=== PATIENT | female | born 1985 | race Caucasian/White ===

== ENCOUNTER → 2017-10-09 | Outpatient (CLI) | payer OTHER ==
[~2017-10-09] MED LIST: IBUP-232 PO; OXYC1TAB63 PO; SENN1TAB PO; ZOFR4TAB PO
== END ==
LOC: CPRE 14:31
PROVIDERS: ATTEND Obstetrics & Gynecology
DX: Z00.00 Encounter for general adult medical examination without abnormal findings (principal)

== ENCOUNTER 2017-10-16 06:09 | Observation (INO) | payer OTHER ==
[~2017-10-16] VITALS: Ht 175.3 cm; Wt 57.1 kg
[2017-10-16] MEDS ORDERED: fentaNYL CITRATE 250 MCG/5 ML AMP ONE (06:38)
[2017-10-16] MEDS ORDERED: ACETAMINOPHEN 1000 MG/100 ML 0 ML IV ONE (06:44)
[2017-10-16] MEDS ORDERED: POVIDONE IODINE 5% (ANTISEPSIS KIT) 4 APPLICATIONS EACH NARE PRN (06:45)
[2017-10-16] MEDS ORDERED: LACTATED RINGER'S 1000 ML IV PRN (06:45)
[2017-10-16] MEDS ORDERED: METOPROLOL TARTRATE 25 MG TAB PO PRN (06:45)
[2017-10-16] MEDS ORDERED: CHLORHEXIDINE GLUCONATE 2 % 1 PACK (2 CLOTHS) TOPICAL PRN (06:45)
[2017-10-16] MEDS ORDERED: SODIUM CHLORID 0.9% 500 ML IV PRN (06:45)
[2017-10-16] MEDS ORDERED: VASOPRESSIN 20 UNITS/ML VIAL ONE (06:53)
[2017-10-16] MEDS ORDERED: ROPIVACAINE 0.5% PF INJ 30 ML VIAL ONE (06:54)
[2017-10-16] MEDS ORDERED: DEXAMETHASONE SOD PHOS 4 MG/ML VIAL ONE (06:55)
[2017-10-16] MEDS ORDERED: CEFAZOLIN INJ 2,000 MG in SODIUM CHLORIDE 0.9% INJ 100 ML IV ONE (07:00)
[2017-10-16] MEDS ORDERED: SODIUM CHLORIDE 0.9% 20 ML VIAL ONE (07:08)
[2017-10-16] MEDS ORDERED: BUPIVACAINE/EPINEPHRINE 0.5% PF 30 ML VIAL ONE (07:17)
[2017-10-16] MEDS ORDERED: SODIUM CHLORIDE 0.9% INJ 0 ML ONE (07:52)
[2017-10-16] MEDS ORDERED: MORPHINE SULFATE 4 MG/ML INJ ONE ×2 (08:53→08:54)
[2017-10-16] MEDS ORDERED: LACTATED RINGER'S 1000 ML INJ 1,000 ML IV SCH (10:43)
[2017-10-16] MEDS ORDERED: DO NOT ADM ANY ANTICOAGULANT DRUGS PRN (10:43)
[2017-10-16] MEDS ORDERED: MORPHINE SULFATE 30 MG/30 ML PCA IV SCH (10:45)
[2017-10-16] MEDS ORDERED: diphenhydrAMINE HCL 25 MG CAP PO PRN (10:45)
[2017-10-16] MEDS ORDERED: NALOXONE HCL 0.4 MG/ML AMP IV PUSH PRN (10:45)
[2017-10-16] MEDS ORDERED: ONDANSETRON HCL 4 MG/2 ML VIAL IVP PRN (10:45)
[2017-10-16] MEDS ORDERED: oxyCODONE/ACETAMINOPHEN 5 MG/325 MG TAB PO PRN (10:45)
[2017-10-16] MEDS: ACETAMINOPHEN 1000 MG/100 ML 100 ML IV SCH ×4 (10:45→23:52)
[2017-10-16] MEDS: SODIUM CHLORIDE 0.9% FLUSH 10 ML FLUSH IV FLUSH SCH ×2 (10:45→20:50)
[2017-10-16] MEDS ORDERED: ZOLPIDEM TARTRATE 5 MG TAB PO PRN (10:45)
[2017-10-16] MEDS ORDERED: SODIUM CHLORIDE 0.9% FLUSH 10 ML FLUSH IV FLUSH PRN (10:45)
[2017-10-16] MEDS ORDERED: LORazepam 0.5 MG TAB PO PRN (10:45)
[2017-10-16] MEDS ORDERED: PROMETHAZINE INJ 25 MG/ML VIAL IM PRN (10:45)
[2017-10-16] MEDS ORDERED: diphenhydrAMINE HCL 50 MG/ML VIAL IV PUSH PRN (10:45)
--- NOTE | 2017-10-16 10:51 | HHI.PR ---
Immediate Post Op Note Procedure Date: Oct 16, 2017 Pre Op Diagnosis: (1) Menorrhagia with irregular cycle (2) Chronic pelvic pain in female (3) Endometriosis determined by laparoscopy Post Op Diagnosis: (1) S/P laparoscopic assisted vaginal hysterectomy (LAVH) (2) Menorrhagia with irregular cycle (3) Chronic pelvic pain in female (4) Endometriosis determined by laparoscopy Surgeon: Suni Loyd Solar Process Engineer(s): Rafia Corbett MD Procedure: exam under anesthesia, laparoscopic assisted vaginal hysterectomy, left salpingo -oophorectomy, right salpingectomy Findings: boggy retroverted uterus, suspect adenomyosis and intramural leiomyoma, adhesions of left ovary to left pelvic sidewall and descending colon, freed intraoperatively Complications: none Specimen(s) removed: uterus, cervix, left ovary, left fallopian tube, right ovary Estimated blood loss: 500 mL Anesthesia: General Drains: None Fluids: 1300mL IVF Urinary Output (mLs): 300 Patient to: PACU Patient Condition: Good Suni Loyd MD Oct 16, 2017 10:50
[2017-10-16] MEDS ORDERED: ACETAMINOPHEN 1000 MG/100 ML 100 ML IV ONE (10:53)
[2017-10-16] MEDS ORDERED: PILL SPLITTER OTHER PRN (11:00)
[2017-10-16] MEDS: KETOROLAC TROMETHAMINE 30 MG/ML (IVP) VIAL IVP SCH ×3 (11:15→22:29)
--- NOTE | 2017-10-16 11:15 | MP ---
cc: Suni Loyd MD DATE OF OPERATION: 10/16/2017 PREOPERATIVE DIAGNOSES: 1. Premenopausal menorrhagia. 2. Chronic pelvic pain. 3. History of endometriosis on prior laparoscopy. POSTOPERATIVE DIAGNOSIS: 1. Premenopausal menorrhagia. 2. Chronic pelvic pain. 3. History of endometriosis on prior laparoscopy. 4. Suspected adenomyosis and uterine fibroid. 5. Postoperative day number zero. INDICATIONS: Lin Melgoza is a 31-year-old who has a long history of painful heavy menstrual cycles not controlled with control methods or continuous Provera suppression. She was seen and evaluated in the office with a somewhat bulky, retroverted uterus and had a history of laparoscopy in 2005 that she reports showed endometriosis. The patient strongly desired hysterectomy and after she had completed childbearing, she desired to move forward with this process. After exhausting medical therapy decision was made to proceed with surgical management. She did have more left- sided pelvic pain then right and desired removal of left ovary at time of hysterectomy. PROCEDURE PERFORMED: 1. Exam under anesthesia. 2. Laparoscopic-assisted vaginal hysterectomy. 3. Left salpingo-oophorectomy. 4. Right salpingectomy. SURGEON: Suni Loyd MD TORCH SOLDERER SURGEON: Rafia Corbett MD. TYPE OF ANESTHESIA: General, also a TAP block was performed intraoperatively per patient request after being counseled by anesthesia team. COMPLICATIONS: None. COUNTS: Sponge, lap, instrument and needle were correct x 2 at the conclusion of the procedure. ESTIMATED BLOOD LOSS: 500 mL. IV FLUID REPLACEMENT: 1300 mL. URINE OUTPUT: 300 mL of clear urine draining in the Busch bag at the end of the procedure. PROPHYLAXIS: Ancef 2 grams IV was given preoperatively and SCDs were on and functioning throughout the entire case. SPECIMENS: Includes uterus, cervix, left ovary, left fallopian tube, right fallopian tube. INTRAOPERATIVE FINDINGS: Normal external female genitalia. Cervix is smooth, multiparous 4 cm mobile. The uterus was approximately 7 weeks size and retroverted on bimanual exam. On intra-abdominal survey laparoscopically normal liver edge, normal appearing gallbladder. The appendix was not visualized. The uterus was somewhat bulky with a suspected intramural fibroid distorting the shape of the cavity on the left. Normal bilateral fallopian tubes. The left ovary was somewhat adherent to the left pelvic sidewall and the descending colon. These adhesions were freed intraoperatively. There was some scarring posteriorly along the right and left uterosacral ligaments concerning for possible endometriosis of the peritoneum. PROCEDURE IN DETAIL: After reviewing the informed consent, the patient was taken to the operating suite where a timeout was performed to identify the patient, the planned procedure and any known allergies to drugs or drug products. The patient was then placed in dorsal supine position and general anesthesia was administered without difficulty and found to be adequate. The anesthesiologist then performed a TAP block of the abdomen. The abdomen and perineum were prepped and draped in a normal sterile fashion after the patient was placed in the low lithotomy position in [facility] ([facility] Exam under anesthesia was performed with results as listed above. Attention was turned vaginally where a sterile speculum was placed vaginally. The cervix was grasped on the anterior lip and the uterus sounded to 7 cm. Progression of cervical dilators were then used to accommodate the HUMI uterine manipulator, which was inserted without complication. Tenaculum and speculum were then removed vaginally and a Busch catheter was placed using sterile technique. Attention was then turned to the abdomen where a 5 mm incision was made at the base of the umbilicus. Using direct visual entry technique the laparoscope was then introduced without complication. Gas was turned on. The abdomen was insufflated. Slight Trendelenburg positioning was performed and an intra-abdominal survey was performed with results as listed above. Additional 5 mm incisions were made in the left and right lower quadrants and trocars were introduced at these points without complications. The left ovary was found to be somewhat adherent to the descending colon. The filmy adhesions along the left pelvic sidewall were lysed with the Harmonic scalpel, successfully freeing the descending colon from the left pelvic sidewall and from the left ovary. The left round ligament was then elevated, grasped with Harmonic, was cauterized and divided. The broad ligament was then opened to develop a bladder flap on the left side down towards the lower uterine segment. This exact process was repeated on the right with excellent skeletonization of the uterine vessels. The left fallopian tube and ovary were then grasped on their vascular pedicle. The left infundibulopelvic ligament was clamped, cauterized, and divided with Harmonic scalpel with excellent hemostasis. Additional ligation of uterine vessels was performed using the Harmonic scalpel down to the level of the uterine artery on the left. The right fallopian tube was then elevated and using Harmonic scalpel, it was successfully excised. It was brought out through the 5 mm trocar. The uterine vessels were then successfully clamped, sealed, and ligated with the Harmonic scalpel from the level of the right uteroovarian ligament down to the level of the uterine artery. Excellent hemostasis was noted. Instruments were removed from the trocars. Gas was turned off, the abdomen was desufflated. The patient was brought back into level position and attention was turned vaginally where the uterine manipulator was removed. A weighted speculum was placed posteriorly and a Guillermo retractor was used to retract anteriorly. The cervix was again grasped with a single-tooth tenaculum and approximately 10 mL of 0.5% bupivacaine with epinephrine were used to dissect the vesicouterine peritoneum. Bovie cautery was used to enter the space and using pickups and Metzenbaum scissors, the anterior cul-de-sac was successfully entered without complication. The Guillermo retractor was replaced in this space. Attention was turned posteriorly where pickups and Ochoa's were used to sharply incise into the posterior cul-de-sac. An Ovard weighted speculum was then placed posteriorly. Using a succession of clamp, cut, and suture ligate technique, the vascular pedicles were secured allowing detachment of the specimen from the vaginal cuff. The specimen was then delivered vaginally. Irrigation with suction was performed. The posterior vaginal cuff was closed in a running fashion with #1 Vicryl with excellent hemostasis. The cuff was then closed from anterior to posterior in a right to left running fashion with an additional #1 Vicryl suture. Uterosacral ligaments were brought together in the midline for additional elevation of the cuff with excellent result. The vagina was then irrigated and suctioned. Excellent hemostasis was noted. Attention was turned back abdominally where gas was turned back on. Abdomen was insufflated. Laparoscopic camera was re-introduced. Irrigation with suction was performed. The right ovary and its pedicle and all additional vascular pedicles were well secured with excellent hemostasis. Surgicel powder was then placed over the vaginal cuff. All instruments were removed at this point. The gas was turned off. The abdomen was desufflated. All trocars were removed from 5 mm ports. The abdomen was cleaned and dried. 4-0 Monocryl was used to close the 3 laparoscopic incision sites in subcuticular fashion and steri- strips were placed. The patient was brought back into dorsal supine position. She was awoken from anesthesia without complication. The procedure concluded at this point. DISPOSITION: The patient's estimated length of stay is overnight. She tolerated the procedure well without complication. MD JUAN C Resendiz/TRISTON , 10:43 AM , 11:13 AM [email or web address]
[2017-10-16] MEDS ORDERED: EPINEPHrine HCL (1:1000) 1 MG/ML VIAL IV ONE (12:00)
[2017-10-16] MEDS ORDERED: ROCURONIUM INJ 50 MG/5 ML SYRINGE IV PUSH ONE (12:00)
[2017-10-16] MEDS ORDERED: ONDANSETRON HCL 4 MG/2 ML VIAL IV ONE (12:00)
[2017-10-16] MEDS ORDERED: PROPOFOL 200 MG/20 ML AMP IV ONE (12:00)
[2017-10-16] MEDS ORDERED: ceFAZolin INJ 1,000 MG VIAL IV ONE (12:00)
[2017-10-16] MEDS ORDERED: LACTATED RINGER'S 1000 ML INJ 1,000 ML IV ONE (12:00)
[2017-10-16] MEDS ORDERED: LIDOCAINE HCL 1% PF 5 ML SYRINGE OTHER ONE (12:00)
[2017-10-16 12:15] VITALS: BP 121/83; PULSE 81; RESP 12; TEMP 97.6; O2SAT 96
[2017-10-16 14:00] VITALS: RESP 14; O2SAT 98
[2017-10-16] MEDS ORDERED: PCA - TOTAL MG MORPHINE DELIVERED PER SHIFT SCH (14:00)
[2017-10-16 17:00] VITALS: BP 109/64; PULSE 74; RESP 16; TEMP 97.9; O2SAT 100
--- NOTE | 2017-10-16 17:28 | HHI.OB ---
Subjective Post Operative Day: 0 Remarks POD#0 s/p LAVH, LSO, R-salpingectomy for menorrhagia, chronic pelvic pain, h/o endometriosis on prior laparoscopies; doing great, wants to ambulate, not requiring CIRCUS ARTIST meds, requests crawford out, wants to eat, transition to po meds Objective Vitals/I&O Vital Signs Date Time Temp Pulse Resp B/P (MAP) Pulse Ox O2 Delivery O2 Flow Rate FiO2 10/16/17 17:00 97.9 74 16 109/64 (79) 100 10/16/17 14:00 14 98 10/16/17 14:00 16 10/16/17 12:15 97.6 81 12 121/83 (96) 96 10/16/17 11:45 98.3 78 14 125/84 (98) 98 Room Air 10/16/17 11:30 75 16 125/72 (89) 97 Room Air 10/16/17 11:15 76 14 131/77 (95) 97 Room Air 10/16/17 11:10 15 10/16/17 11:00 82 18 135/80 (98) 99 Room Air 10/16/17 10:41 98.0 108 20 125/77 (93) 100 Room Air 10/16/17 06:48 98.8 58 20 110/63 (79) 98 Intake & Output 10/16/17 10/16/17 07:00 19:00 Intake Total 1453 ml Output Total 1000 ml Balance 453 ml Intake IV Total 153 ml Other 1300 ml Output Urine Total 500 ml Estimated Blood Loss 500 ml Objective Remarks GENERAL: Well-nourished, well-developed patient. CARDIOVASCULAR: Regular rate and rhythm without murmurs, gallops, or rubs. RESPIRATORY: Breath sounds equal bilaterally. No accessory muscle use. ABDOMEN/GI: Abdomen soft, non-tender, bowel sounds present. Incision: Clean, dry and intact x 3 LSC trochar incisions GENITOURINARY: pad dry. EXTREMITIES: No cyanosis or edema, non-tender, without signs of DVT. Medications and IVs Current Medications Medications (Trade) Dose Ordered Sig/Rashida Route Start Time Stop Time Status Last Admin (NS Flush) 2 ml UNSCH PRN IV FLUSH 10/16/17 10:45 (NS Flush) 2 ml BID IV FLUSH 10/16/17 10:45 (Motrin) 600 mg Q6H PRN PO 10/17/17 08:00 (Toradol Inj) 15 mg Q6H IVP 10/16/17 10:45 10/17/17 04:46 10/16/17 17:08 (Percocet 5-325 Mg) 1 tab Q4H PRN PO 10/16/17 10:45 (Percocet 5-325 Mg) 2 tab Q4H PRN PO 10/16/17 10:45 (Benadryl) 25 mg Q6H PRN PO 10/16/17 10:45 (Zofran Inj) 4 mg Q6H PRN IVP 10/16/17 10:45 (Phenergan Inj) 25 mg Q6H PRN IM 10/16/17 10:45 (Colace) 100 mg Q12H PO 10/16/17 21:00 (Ambien) 5 mg HS PRN PO 10/16/17 10:45 (Ativan) 0.25 mg Q8H PRN PO 10/16/17 10:45 (Narcan Inj) 0.4 mg UNSCH PRN IV PUSH 10/16/17 10:45 (Benadryl Inj) 25 mg Q6H PRN IV PUSH 10/16/17 10:45 Acetaminophen 100 ml @ 400 mls/hr Q6H IV 10/16/17 10:45 10/17/17 04:59 10/16/17 17:08 (Pill Splitter) 1 ea UNSCH PRN OTHER 10/16/17 11:00 Miscellaneous Information ALL NURSING DEPARTME... UNSCH PRN .XX 10/16/17 10:43 10/17/17 10:42 Assessment/Plan Problem List: (1) S/P laparoscopic assisted vaginal hysterectomy (LAVH) ICD Codes: Z90.710 - Acquired absence of both cervix and uterus Status: Acute (2) Menorrhagia with irregular cycle ICD Codes: N92.1 - Excessive and frequent menstruation with irregular cycle Status: Chronic (3) Chronic pelvic pain in female ICD Codes: R10.2 - Pelvic and perineal pain; G89.29 - Other chronic pain Status: Chronic (4) Endometriosis determined by laparoscopy ICD Codes: N80.9 - Endometriosis, unspecified Status: Chronic Assessment and Plan POD#0 doing great, d/c crawford, advance diet, ambulate, d/c IVF, transition to po meds if does well overnight will plan d/c in AM reviewed procedure & findings, AQA Discharge Planning anticipate tmrw 10/17/17 Suni Loyd MD Oct 16, 2017 17:28
[2017-10-16] MEDS ORDERED: SENN1TAB PO (17:30)
[2017-10-16] MEDS ORDERED: IBUP-232 PO (17:30)
[2017-10-16] MEDS ORDERED: OXYC1TAB63 PO (17:30)
[2017-10-16 19:40] VITALS: BP 102/62; PULSE 59; RESP 20; TEMP 98.2; O2SAT 100
[2017-10-16] MEDS ORDERED: DOCUSATE SODIUM 100 MG CAP PO SCH (21:00)
[2017-10-16] MEDS: oxyCODONE/ACETAMINOPHEN 5 MG/325 MG TAB PO PRN (22:30)
[2017-10-17] VITALS: BP 112/62; PULSE 68; RESP 16; TEMP 98.5; O2SAT 99
--- NOTE | 2017-10-17 02:54 | HHI.PR ---
Subjective Remarks Doing well, pain is well controlled, eating well. Objective Vital Signs Vital Signs Date Time Temp Pulse Resp B/P (MAP) Pulse Ox O2 Delivery O2 Flow Rate FiO2 10/17/17 00:00 98.5 68 16 112/62 (79) 99 10/16/17 19:40 98.2 59 20 102/62 (75) 100 10/16/17 17:00 97.9 74 16 109/64 (79) 100 10/16/17 14:00 14 98 10/16/17 14:00 16 10/16/17 12:15 97.6 81 12 121/83 (96) 96 10/16/17 11:45 98.3 78 14 125/84 (98) 98 Room Air 10/16/17 11:30 75 16 125/72 (89) 97 Room Air 10/16/17 11:15 76 14 131/77 (95) 97 Room Air 10/16/17 11:10 15 10/16/17 11:00 82 18 135/80 (98) 99 Room Air 10/16/17 10:41 98.0 108 20 125/77 (93) 100 Room Air 10/16/17 06:48 98.8 58 20 110/63 (79) 98 I/O 10/16/17 10/16/17 10/16/17 10/17/17 10/17/17 10/17/17 07:00 15:00 23:00 07:00 15:00 23:00 Intake Total 1523 ml 240 ml Output Total 1000 ml 2300 ml Balance 523 ml -2060 ml Intake Oral 240 ml IV Total 223 ml Other 1300 ml Output Urine Total 500 ml 2300 ml Estimated Blood Loss 500 ml Objective Remarks Chest is clear, regular rate and rhythm. Abdomen is soft and non-distended. Incisions are clean and dry. steri- strips in place x 3 Ext no CCE. A/P Assessment and Plan Post Op Day 1 Doing well Home today and return to office in one week. reviewed postop precautions & proper care, Suni Styles MD Oct 17, 2017 02:54
--- NOTE | 2017-10-17 02:58 | HHI.DS ---
Discharge Summary Admission Date Oct 16, 2017 at 10:47 Discharge Date: Oct 17, 2017 Admitting Diagnosis premenopausal menorrhagia, chronic pelvic pain, history of endometriosis on laparoscopy (1) S/P laparoscopic assisted vaginal hysterectomy (LAVH) ICD Codes: Z90.710 - Acquired absence of both cervix and uterus Status: Acute (2) Menorrhagia with irregular cycle ICD Codes: N92.1 - Excessive and frequent menstruation with irregular cycle Status: Chronic (3) Chronic pelvic pain in female ICD Codes: R10.2 - Pelvic and perineal pain; G89.29 - Other chronic pain Status: Chronic (4) Endometriosis determined by laparoscopy ICD Codes: N80.9 - Endometriosis, unspecified Status: Chronic Procedures exam under anesthesia, laparoscopic assisted vaginal hysterectomy, left salpingo -oophorectomy, right salpingectomy Brief History 31 yo with known history of endometriosis on prior laparoscopies, long history of heavy painful cycles, failed medical management, desired definitive treatment with hysterectomy. PE at Discharge NAD A&O x 3 CTA b/l no wheeze RRR no murmur soft, NTND +BS incisions c/d/i no bleeding on pad no c/c/e x 4 Hospital Course Pt had uncomplicated intraoperative course, did very well on POD#0, was able to have crawford out approx 6 hours postop and was ambulating, voiding, tolerating diet on POD#0. By POD#1 was passing flatus, pain well controlled with oral meds , meeting all discharge criteria. Pt Condition on Discharge: Good Discharge Disposition: Discharge Home Discharge Instructions DIET: Follow Instructions for: As Tolerated, No Restrictions Activities you can perform: Partial Weight Bearing, Shower Only-No Bath, Pelvic Rest Activities to avoid: Lifting/Bending, Strenuous Activity, Driving (x 2 weeks) Suni Loyd MD Oct 17, 2017 02:58
[2017-10-17] MEDS ORDERED: ZOFR4TAB PO (02:59)
[2017-10-17] MEDS: oxyCODONE/ACETAMINOPHEN 5 MG/325 MG TAB PO PRN ×2 (03:56→09:10)
[2017-10-17] MEDS: KETOROLAC TROMETHAMINE 30 MG/ML (IVP) VIAL IVP SCH (03:56)
[2017-10-17 04:00] VITALS: BP 115/65; PULSE 84; RESP 16; TEMP 98.2; O2SAT 99
[2017-10-17 05:52] LABS: AUTOMATED NEUTROPHIL # 5.8 TH/MM3 (1.8-7.7); BASOPHIL % 0.4 % (0.0-2.0); EOSINOPHIL % 0.2 % (0.0-4.0); HEMATOCRIT 26.4 % (35.0-46.0); HEMOGLOBIN 8.9 GM/DL (11.6-15.3); LYMPH % 12.5 % (9.0-44.0); LYMPHOCYTE # 0.9 TH/MM3 (1.0-4.8); MEAN CELL VOLUME 86.4 FL (80.0-100.0); MEAN CORPUSCULAR HEMOGLOBIN 29.2 PG (27.0-34.0); MEAN CORPUSCULAR HGB CONC 33.8 % (32.0-36.0); MEAN PLATELET VOLUME 7.2 FL (7.0-11.0); MONO % 9.8 % (0.0-8.0); MONOCYTE # 0.7 TH/MM3 (0-0.9); NEUT % 77.1 % (16.0-70.0); PLATELET COUNT 175 TH/MM3 (150-450); RED BLOOD COUNT 3.05 MIL/MM3 (4.00-5.30); WHITE BLOOD COUNT 7.6 TH/MM3 (4.0-11.0)
[2017-10-17 08:00] VITALS: BP 109/68; PULSE 84; RESP 20; TEMP 98.2; O2SAT 100
[2017-10-17] MEDS ORDERED: IBUPROFEN 600 MG TAB PO PRN (08:00)
== END 2017-10-17 09:46 | disposition home or self-care (01) ==
LOC: HSDC 06:09 → HSDI 10:47 → H1EA 12:01
PROVIDERS: ADMIT Obstetrics & Gynecology; ATTEND Obstetrics & Gynecology
DX: N92.4 Excessive bleeding in the premenopausal period (principal); D25.0 Submucous leiomyoma of uterus; N85.4 Malposition of uterus; N83.02 Follicular cyst of left ovary; R10.2 Pelvic and perineal pain; G89.29 Other chronic pain; E88.09 Other disorders of plasma-protein metabolism, not elsewhere classified
CPT/HCPCS: 00840; 58552; 85025; 88307; 88341; 88342; 96365; 96375; 96376; G0378; J0131; J0171; J0690; J1100; J1885; J2270; J2405; J2795; J3010; J7120

== ENCOUNTER 2017-10-19 09:41 | Observation (INO) | payer OTHER ==
[2017-10-19] VITALS (22 sets, daily range): BP systolic 99–130; BP diastolic 58–84; PULSE 18–146; RESP 15–20; TEMP 98–100.2; O2SAT 99–100
[2017-10-19] MEDS ORDERED: SODIUM CHLOR 0.9% 1000 ML INJ 1,000 ML IV ONE ×2 (10:15→13:00)
[2017-10-19] MEDS ORDERED: SODIUM CHLORIDE 0.9% FLUSH 10 ML FLUSH IVF PRN (10:15)
--- NOTE | 2017-10-19 10:24 | PD ---
HPI Chief Complaint: Fall Time Seen by Provider: 10:03 Travel History International Travel<30 days: No Contact w/Intl Traveler<30days: No Traveled to known affect area: No History of Present Illness HPI 31 y/o female states in the middle the night when she went to the bathroom she thinks she passed out. She states when she fell she hit her face and chipped her front tooth. She states that on Monday she had a hysterectomy with Dr. Viveros. She states she has been having a little bit of vaginal spotting and notes sharp right lower quadrant abdominal pain and feels like it is swollen in that area. She states no other significant complaints at this time other than feeling weak. Quality is lightheaded. Severity is leading to syncope. Fall was from standing. History is limited as patient does not recall all details of fall. PFSH Past Medical History Blood Disorders: No Cancer: No Cardiovascular Problems: No Endocrine: No Gastrointestinal Disorders: No Genitourinary: No Hepatitis: No Hiatal Hernia: No Hypertension: No Immune Disorder: No Implanted Vascular Access Dvce: No Medical other: No Musculoskeletal: No Neurologic: No Psychiatric: No Reproductive: No Respiratory: No ?: Not : 4 Para: 2 Miscarriage: 2 Dilation and Curettage (D&C): Yes (x 2) Past Surgical History AICD: No Gynecologic Surgery: Yes (LAP) Joint Replacement: Yes (RIGHT SHOULDER) Pacemaker: No Other Surgery: No (LAPRO) Social History Alcohol Use: Yes (on occasion) Tobacco Use: No Substance Use: No Allergies-Medications (Allergen,Severity, Reaction): Coded Allergies: methylergonovine (Unverified Allergy, Severe, Anaphylaxis, 10/16/17) succinylcholine (Unverified Allergy, Severe, 10/16/17) sulfamethoxazole (Unverified Allergy, Severe, 10/16/17) trimethoprim (Unverified Allergy, Severe, 10/16/17) Sulfa (Sulfonamide Antibiotics) (Unverified Allergy, Unknown, 10/16/17) Uncoded Allergies: METHERGAN (Allergy, Severe, 10/18/10) Reported Meds & Prescriptions Reported Meds & Active Scripts Active Zofran (Ondansetron HCl) 4 Mg Tab 4 Mg PO Q6HR PRN Senna Plus 8.6-50 mg (Sennosides-Docusate Sodium) 8.6 Mg-50 Mg Tab 1 Tab PO BID 10 Days Oxycodone-Acetaminophen 5-325 (Oxycodone HCl/Acetaminophen) 5 Mg-325 Mg Tablet 1 Tab PO Q4H PRN Ibuprofen 600 Mg Tab 600 Mg PO Q6H PRN Review of Systems Except as stated in HPI: all other systems reviewed are Neg Physical Exam Narrative GENERAL: 31-year-old female who appears pale SKIN: Focused skin assessment warm/dry. HEAD: Normocephalic. EYES: Pupils equal and round. No scleral icterus. No injection or drainage. ENT: No nasal bleeding or discharge. Mucous membranes pink and moist. Right upper tooth noted with fracture from fall NECK: Trachea midline. No JVD. no midline pain over C-spine CARDIOVASCULAR: Tachycardic rate and regular rhythm. No murmur appreciated. RESPIRATORY: No accessory muscle use. Clear to auscultation. Breath sounds equal bilaterally. GASTROINTESTINAL: Abdomen soft, tender right lower quadrant, nondistended. MUSCULOSKELETAL: No obvious deformities. No clubbing. No cyanosis. NEUROLOGICAL: Awake and alert. No obvious cranial nerve deficits. Motor grossly within normal limits. Normal speech. Data Data Last Documented VS Vital Signs Date Time Temp Pulse Resp B/P (MAP) Pulse Ox O2 Delivery O2 Flow Rate FiO2 10/19/17 12:29 99.2 103 18 123/59 99 10/19/17 12:17 Room Air Orders Orders Basic Metabolic Panel (Bmp) (10/19/17 10:03) Complete Blood Count With Diff (10/19/17 10:03) Type And Screen (10/19/17 10:03) Ct Brain W/O Iv Contrast(Rout) (10/19/17 10:03) Iv Access Insert/Monitor (10/19/17 10:03) Ecg Monitoring (10/19/17 10:03) Oximetry (10/19/17 10:03) Sodium Chloride 0.9% Flush (Ns Flush) (10/19/17 10:15) Ct Abd/Pel W Iv Contrast(Rout) (10/19/17 ) Chest, Single Ap (10/19/17 ) Sodium Chlor 0.9% 1000 Ml Inj (Ns 1000 M (10/19/17 10:15) Lactic Acid (10/19/17 10:21) Red Blood Cells (Rbc) (10/19/17 10:34) Blood Product Administration (10/19/17 10:34) Sodium Chlor 0.9% 250 Ml Inj (Ns 250 Ml (10/19/17 10:45) Urinalysis - C+S If Indicated (10/19/17 10:54) Electrocardiogram (10/19/17 10:09) Urine Culture (10/19/17 11:22) Iohexol 350 Inj (Omnipaque 350 Inj) (10/19/17 11:57) Piperacil-Tazo 3.375 Gm Premix (Zosyn 3. (10/19/17 13:00) Sodium Chlor 0.9% 1000 Ml Inj (Ns 1000 M (10/19/17 13:00) Admit Order (Ed Use Only) (10/19/17 12:55) Place In Observation (10/19/17 ) Code Status (10/19/17 13:00) Vital Signs (Adult) Q4H (10/19/17 13:00) Activity Oob Ad La (10/19/17 13:00) Intake + Output LIZBETH.QSHIFT (10/19/17 13:00) Lactated Ringer's 1000 Ml Inj (Lr 1000 M (10/19/17 13:00) Sodium Chloride 0.9% Flush (Ns Flush) (10/19/17 13:00) Sodium Chloride 0.9% Flush (Ns Flush) (10/19/17 21:00) Oxycodone-Acetamin 5-325 Mg (Percocet (10/19/17 13:00) Oxycodone-Acetamin 5-325 Mg (Percocet (10/19/17 13:00) Diphenhydramine (Benadryl) (10/19/17 13:00) Ondansetron Inj (Zofran Inj) (10/19/17 13:00) Promethazine (Phenergan) (10/19/17 13:00) Complete Blood Count With Diff (10/20/17 06:00) Lorazepam (Ativan) (10/19/17 13:00) Scd Bilateral/Knee High LIZBETH.QSHIFT (10/19/17 13:00) Acetaminophen 1000 Mg/100 Ml (Ofirmev 10 (10/19/17 13:00) Ibuprofen (Motrin) (10/19/17 13:00) Docusate Sodium-Senna (Mary-Colace) (10/19/17 21:00) Complete Blood Count With Diff (10/19/17 18:00) Blood Product Administration (10/19/17 15:00) Labs Laboratory Tests Test 10/19/17 10:15 10/19/17 10:27 10/19/17 11:22 White Blood Count 20.1 TH/MM3 Red Blood Count 2.55 MIL/MM3 Hemoglobin 7.3 GM/DL Hematocrit 21.8 % Mean Corpuscular Volume 85.5 FL Mean Corpuscular Hemoglobin 28.6 PG Mean Corpuscular Hemoglobin Concent 33.4 % Red Cell Distribution Width 12.6 % Platelet Count 263 TH/MM3 Mean Platelet Volume 7.2 FL Neutrophils (%) (Auto) 95.7 % Lymphocytes (%) (Auto) 1.6 % Monocytes (%) (Auto) 2.5 % Eosinophils (%) (Auto) 0.0 % Basophils (%) (Auto) 0.2 % Neutrophils # (Auto) 19.3 TH/MM3 Lymphocytes # (Auto) 0.3 TH/MM3 Monocytes # (Auto) 0.5 TH/MM3 Eosinophils # (Auto) 0.0 TH/MM3 Basophils # (Auto) 0.0 TH/MM3 CBC Comment DIFF FINAL Differential Comment Blood Urea Nitrogen 8 MG/DL Creatinine 0.72 MG/DL Random Glucose 167 MG/DL Calcium Level 8.3 MG/DL Sodium Level 136 MEQ/L Potassium Level 4.1 MEQ/L Chloride Level 102 MEQ/L Carbon Dioxide Level 23.6 MEQ/L Anion Gap 10 MEQ/L Estimat Glomerular Filtration Rate 94 ML/MIN Lactic Acid Level 3.4 mmol/L Urine Color YELLOW Urine Turbidity HAZY Urine pH 5.5 Urine Specific [place] 1.025 Urine Protein TRACE mg/dL Urine Glucose (UA) 1000 mg/dL Urine Ketones 80 mg/dL Urine Occult Blood SMALL Urine Nitrite NEG Urine Bilirubin NEG Urine Urobilinogen LESS THAN 2.0 MG/DL Urine Leukocyte Esterase NEG Urine RBC 1 /hpf Urine WBC 1 /hpf Urine Squamous Epithelial Cells 9 /hpf Urine Bacteria RARE /hpf Urine Mucus FEW /lpf Microscopic Urinalysis Comment CATH-CULTURE IND MDM Medical Decision Making Medical Screen Exam Complete: Yes Emergency Medical Condition: Yes Medical Record Reviewed: Yes (Past history confirmed) Interpretation(s) CBC & BMP Diagram 10/19/17 10:15 Calcium Level 8.3 L Last [address] 10/19/17 1003 Signed Impressions: Service Date/Time: October 11:50 - CONCLUSION: Negative noncontrast head CT. Florencio Moreno MD Chest X-Ray 10/19/17 0000 Signed Impressions: Service Date/Time: October 10:19 - CONCLUSION: The lungs are clear. No evidence of pneumothorax. Keyshawn Dawkins MD Abdomen/Pelvis CT 10/19/17 0000 Signed Impressions: Service Date/Time: October 11:50 - CONCLUSION: 1. Moderate amounts of subacute appearing intra-abdominal/intrapelvic and right lower quadrant abdominal wall blood as above. No active bleeding seen. I don't see an abscess. 2. Scattered bubbles of intraperitoneal and abdominal wall gas, presumably postoperative. 3. 3.4 cm cyst in the right adnexal region, probably benign ovarian. Florencio Moreno MD Differential Diagnosis Anemia, intercranial, fracture, hematoma Narrative Course We will check blood work, imaging and discuss with her surgeon Patient updated and agrees to 1 unit of transfusion. Patient given antibiotics and IV fluids. Patient agrees to admission after discussion with her surgeon Critical Care Narrative Aggregate critical care time was 35 minutes. Time to perform other separately billable procedures was not included in the critical care time. My time did not include minutes spent treating any other patients simultaneously or on activities that did not directly contribute to the patient's treatment. The services I provided to this patient were to treat and/or prevent clinically significant deterioration that could result in: Septic shock, hemorrhagic shock I provided critical care services requiring my management, as noted below: Chart data review, documentation time, medication orders and management, vital sign assessments/reviewing monitor data, ordering and reviewing lab tests, ordering and interpreting/reviewing x-rays and diagnostic studies, care of the patient and discussion of the patient with the admitting physicians. Sepsis Criteria SIRS Criteria (2 or more): Heart rate over 90, WBC > 81133, < 4000 or > 10% bands Sepsis Criteria (SIRS+source): Infect source susp/known Severe Sepsis (+one): Lactate >2 Criteria Outcome: Meets severe sepsis criteria Physician Communication Physician Communication dr richards will follow, agrees to start with one unit of blood transfusion dr richards came and saw patient and requests to place in observation Diagnosis Primary Impression: Anemia Qualified Codes: D64.9 - Anemia, unspecified Additional Impressions: Sepsis Qualified Codes: A41.9 - Sepsis, unspecified organism Syncope Qualified Codes: R55 - Syncope and collapse UTI (urinary tract infection) Qualified Codes: N39.0 - Urinary tract infection, site not specified Admitting Information Admitting Physician Requests: Observation Jennifer Pacheco MD Oct 19, 2017 10:24
[2017-10-19 10:31] LABS: AUTOMATED NEUTROPHIL # 19.3 TH/MM3 (1.8-7.7); BASOPHIL % 0.2 % (0.0-2.0); HEMATOCRIT 21.8 % (35.0-46.0); HEMOGLOBIN 7.3 GM/DL (11.6-15.3); LYMPH % 1.6 % (9.0-44.0); LYMPHOCYTE # 0.3 TH/MM3 (1.0-4.8); MEAN CELL VOLUME 85.5 FL (80.0-100.0); MEAN CORPUSCULAR HEMOGLOBIN 28.6 PG (27.0-34.0); MEAN CORPUSCULAR HGB CONC 33.4 % (32.0-36.0); MEAN PLATELET VOLUME 7.2 FL (7.0-11.0); MONO % 2.5 % (0.0-8.0); MONOCYTE # 0.5 TH/MM3 (0-0.9); NEUT % 95.7 % (16.0-70.0); PLATELET COUNT 263 TH/MM3 (150-450); RED BLOOD COUNT 2.55 MIL/MM3 (4.00-5.30); RED CELL DISTRIBUTION WIDTH 12.6 % (11.6-17.2); WHITE BLOOD COUNT 20.1 TH/MM3 (4.0-11.0)
[2017-10-19] MEDS ORDERED: SODIUM CHLOR 0.9% 250 ML INJ 250 ML IV ONE (10:45)
[2017-10-19 10:57] LABS: BICARBONATE 23.6 MEQ/L (21.0-32.0); CALCIUM 8.3 MG/DL (8.5-10.1); CREATININE 0.72 MG/DL (0.50-1.00)
--- NOTE | 2017-10-19 11:10 | RADRPT ---
EXAM DATE/TIME: 10/19/2017 10:19 [facility] COMPARISON: No previous studies available for comparison. INDICATIONS : Syncopal episode and fall. Hysterectomy done 3 days ago. MEDICAL HISTORY : Hysterectomy SURGICAL HISTORY : Endometriosis. Right shoulder repair. Laprascopic diagnostic surgery. ENCOUNTER: Initial ACUITY: 1 day PAIN SCORE: 4/10 LOCATION: head FINDINGS: A single view of the chest demonstrates the lungs to be symmetrically aerated without evidence of mas s, infiltrate or effusion. The cardiomediastinal contours are unremarkable. Osseous structures are intact. CONCLUSION: The lungs are clear. No evidence of pneumothorax. Keyshawn Dawkins MD on October 19, 2017 at 11:07 Board Certified Radiologist. This report was verified electronically.
[2017-10-19 11:46] LABS: BACTERIA, URINE RARE /hpf; BILIRUBIN, URINE NEG (NEG); BLOOD, URINE SMALL (NEG); GLUCOSE,URINE 1000 mg/dL (NEG); KETONE, URINE 80 mg/dL (NEG); MUCUS URINE FEW /lpf (OCC); NITRITE,URINE NEG (NEG); PH, URINE 5.5 (5.0-8.5); SQUAMOUS EPITHELIAL CELL URINE 9 /hpf (0-5); URINE COLOR YELLOW (YELLW/STRAW); URINE LEUKOCYTE ESTERASE NEG (NEG)
[2017-10-19] MEDS ORDERED: IOHEXOL 350 MG/ML 10 ML VIAL (for RAD DIAG) IVCONTRAST ONE (11:57)
--- NOTE | 2017-10-19 12:03 | RADRPT ---
EXAM DATE/TIME: 10/19/2017 11:50 [facility] COMPARISON: CT BRAIN W/O CONTRAST, March 09, 2013, 0:45. INDICATIONS : Syncopal episode, 3 days post hysterectomy RADIATION DOSE: 56.35 CTDIvol (mGy) MEDICAL HISTORY : None SURGICAL HISTORY : Hysterectomy. ENCOUNTER: Initial ACUITY: 1 day PAIN SCALE: 3/10 LOCATION: cranial TECHNIQUE: Multiple contiguous axial images were obtained of the head. Using automated exposure control and adj ustment of the mA and/or kV according to patient size, radiation dose was kept as low as reasonably a chievable to obtain optimal diagnostic quality images. DICOM format image data is available electro nically for review and comparison. FINDINGS: CEREBRUM: The ventricles are normal for age. No evidence of midline shift, mass lesion, hemorrhage or acute in farction. No extra-axial fluid collections are seen. POSTERIOR FOSSA: The cerebellum and brainstem are intact. The 4th ventricle is midline. The cerebellopontine angle i s unremarkable. EXTRACRANIAL: The visualized portion of the orbits is intact. SKULL: The calvaria is intact. No evidence of skull fracture. CONCLUSION: Negative noncontrast head CT. Florencio Moreno MD on October 19, 2017 at 12:00 Board Certified Radiologist. This report was verified electronically.
--- NOTE | 2017-10-19 12:34 | RADRPT ---
EXAM DATE/TIME: 10/19/2017 11:50 [facility] COMPARISON: Report only CT ABDOMEN & PELVIS W CONTRAST, March 09, 2013, 0:53. INDICATIONS : Syncope 3 days post hysterectomy IV CONTRAST: 94 cc Omnipaque 350 (iohexol) IV ORAL CONTRAST: No oral contrast ingested. RADIATION DOSE: 6.64 CTDIvol (mGy) MEDICAL HISTORY : None SURGICAL HISTORY : Hysterectomy. ENCOUNTER: Initial ACUITY: 3 days PAIN SCALE: 9/10 LOCATION: pelvis TECHNIQUE: Volumetric scanning of the abdomen and pelvis was performed. Using automated exposure control and ad justment of the mA and/or kV according to patient size, radiation dose was kept as low as reasonably achievable to obtain optimal diagnostic quality images. DICOM format image data is available electro nically for review and comparison. FINDINGS: There is moderate diffuse ascites. In the upper abdomen, and the fluid is mostly low attenuation. How ever, there is intermediate attenuation fluid in the pelvic cavity typical of subacute blood. No acti ve bleeding is demonstrated. The uterus is surgically absent. There is a 3.4 cm benign appearing cyst ic structure in the region of the right adnexa. Tiny bubbles of gas are seen intraperitoneal and also in the abdominal wall, presumably postoperative. Within the right lower quadrant interabdominal wall is some intramuscular hemorrhage that measures approximately 3.3 x 8.3 cm in greatest transaxial dim ension and 12.9 cm in craniocaudal length. This also appears subacute. Visualized lung bases are clear. No acute bony abnormalities are demonstrated. Solid organs are normal. No obstruction or acute inflammatory changes seen of the gastrointestinal tr act. CONCLUSION: 1. Moderate amounts of subacute appearing intra-abdominal/intrapelvic and right lower quadrant abdomi nal wall blood as above. No active bleeding seen. I don't see an abscess. 2. Scattered bubbles of intraperitoneal and abdominal wall gas, presumably postoperative. 3. 3.4 cm cyst in the right adnexal region, probably benign ovarian. Florencio Moreno MD on October 19, 2017 at 12:26 Board Certified Radiologist. This report was verified electronically.
[2017-10-19] MEDS ORDERED: PROMETHAZINE HCL 25 MG TAB PO PRN (13:00)
[2017-10-19] MEDS ORDERED: oxyCODONE/ACETAMINOPHEN 5 MG/325 MG TAB PO PRN (13:00)
[2017-10-19] MEDS ORDERED: LACTATED RINGER'S 1000 ML INJ 1,000 ML IV SCH (13:00)
[2017-10-19] MEDS ORDERED: diphenhydrAMINE HCL 25 MG CAP PO PRN (13:00)
[2017-10-19] MEDS ORDERED: PIPERACIL-TAZO 3.375 GM PREMIX 50 ML IV ONE (13:00)
[2017-10-19] MEDS ORDERED: SODIUM CHLORIDE 0.9% FLUSH 10 ML FLUSH IV FLUSH PRN (13:00)
[2017-10-19] MEDS ORDERED: ONDANSETRON HCL 4 MG/2 ML VIAL IVP PRN (13:00)
[2017-10-19] MEDS ORDERED: LORazepam 0.5 MG TAB PO PRN (13:00)
--- NOTE | 2017-10-19 13:18 | PD.CONS ---
HPI Chief Complaint syncopal episode, fall, POD#3 s/p laparoscopic assisted vaginal hysterectomy, left salpingooophorectomy, right salpingectomy Date Seen: Oct 19, 2017 Time Seen: 12:45 Travel History International Travel<30 Days: No Contact w/Intl Traveler<30Days: No Known Affected Area: No History of Present Illness HPI 31 yo wf seen in ED after consult from Dr. Pacheco, patient presented via [facility] for syncopal episode overnight while having BM. States she had been doing well until last evening when felt "gas pain, like I had to go to the bathroom." Got up to bathroom, states was "pushing" to evacuate bowels and next thing she remembers she woke up on the floor. No memory of any other events. Chipped her front tooth and small abrasion to lower lip with swelling. Patient did not feel she could safely get up due to feeling light headed, her Prashant found her in the bathroom in the morning which is when patient decided to call [facility]. Minimal vaginal bleeding discharge time of surgery, now s/p fall patient states she feels more soreness in RLQ. No nausea, no vomiting, no fevers or chills. Has been taking po pain medication as prescribed and had been tolerating bland diet as of yesterday. No associated symptoms. Denies dysuria, hematuria, vaginal pain. Pain currently 3/10 dull ache RLQ. History Past Medical History Narrative Medical history of menorrhagia, endometriosis, chronic pelvic pain (indication for hysterectomy) Obstetric History Obstetric History SAB x 2 FT x 2 (2012 & 2016 sons) Past Surgical History Narrative Surgical 10/16/2017 LAVH, R-salpingectomy, LSO breast implants 2010 broken shoulder 2012 D&C 2005 laparoscopy 2006 Family History Narrative Family History breast cancer maternal grandmother, great grandmother, paternal great aunt (pt had BRCA testing and is NEGATIVE) Social History Alcohol Use: Yes (rare/social) Tobacco Use: No Substance Abuse: No Allergies-Medications (Allergen,Severity, Reaction): Coded Allergies: methylergonovine (Unverified Allergy, Severe, Anaphylaxis, 10/16/17) succinylcholine (Unverified Allergy, Severe, 10/16/17) sulfamethoxazole (Unverified Allergy, Severe, 10/16/17) trimethoprim (Unverified Allergy, Severe, 10/16/17) Sulfa (Sulfonamide Antibiotics) (Unverified Allergy, Unknown, 10/16/17) Uncoded Allergies: METHERGAN (Allergy, Severe, 10/18/10) Home Meds Active Scripts Ondansetron (Zofran) 4 Mg Tab, 4 MG PO Q6HR Y for NAUSEA OR VOMITING, #10 TAB 1 Refill Prov:Suni Loyd MD 10/17/17 Sennosides-Docusate Sodium (Senna Plus 8.6-50 mg) 8.6 Mg-50 Mg Tab, 1 TAB PO BID for Constipation for 10 Days, #20 TAB 1 Refill Prov:Suni Loyd MD 10/16/17 Oxycodone HCl/Acetaminophen (Oxycodone-Acetaminophen 5-325) 5 Mg-325 Mg Tablet, 1 TAB PO Q4H Y for PAIN SCALE 1 TO 5, #20 TAB 0 Refills Prov:Suni Loyd MD 10/16/17 Ibuprofen (Ibuprofen) 600 Mg Tab, 600 MG PO Q6H Y for PAIN 1-10 AND/OR FEVER > 101F, #30 TAB 1 Refill Prov:Suni Loyd MD 10/16/17 Review of Systems General / Constitutional: No: Fever, Weight Gain, Chills, Other Eyes: No: Diploplia, Blurred Vision, Visual changes, Pain, Photophobia HENT: Lightheadedness, No: Headaches, Vertigo Cardiovascular: Tachycardia, Syncope, No: Irregular Rhythm, Chest Pain or Discomfort, Palpitations, Varicosities, Edema, Cyanosis Respiratory: No: Cough, Short of Breath, Other Gastrointestinal: Abdominal Pain (RLQ), No: Nausea, Vomiting, Diarrhea Genitourinary: Other (spotting when wiping vaginally), No: Decreased Urinary Output, Oliguria Musculoskeletal: No: Limited ROM, Weakness, Cramping, Edema, Pain Skin: No Rash, No Itching, No Dryness, No Lumps, No Change in Pigmentation, No Change in Nails, No Alopecia, No Lesions Neurologic: Weakness, Syncope, No: Dizziness, Focal Abnormalities, Coordination Problem, Headache, Slurred Speech, Seizures Psychiatric: No: Depression, Suicidal Ideations, Homicidal Ideation Endocrine: No: Heat Intolerance, Cold Intolerance, Polydipsia, Polyuria, Other Physical Exam Vital Signs Date Time Temp Pulse Resp B/P (MAP) Pulse Ox O2 Delivery O2 Flow Rate FiO2 10/19/17 12:29 99.2 103 18 123/59 99 10/19/17 12:17 99.3 104 18 120/77 (91) 100 Room Air 10/19/17 12:15 99.3 106 18 120/77 10/19/17 11:26 99 18 98 Room Air 10/19/17 10:34 98 18 118/63 (81) 100 Room Air 10/19/17 10:12 18 100 Room Air 10/19/17 10:09 98.0 126 18 118/63 (81) 100 Room Air 10/19/17 09:54 98.7 146 20 129/58 (81) 100 Narrative GENERAL: Well-nourished, well-developed patient. Ill appearing, pale. Laying in bed, transfusion in process. SKIN: Warm and dry. HEAD: Normocephalic and atraumatic. EYES: No scleral icterus. No injection or drainage. ENT: No nasal drainage noted. Mucous membranes pink. Airway patent. NECK: Supple, trachea midline. No JVD. CARDIOVASCULAR: Mildly tachycardic rate and regular rhythm without murmurs, gallops, or rubs. RESPIRATORY: Breath sounds equal bilaterally. No accessory muscle use. BREASTS: ABDOMEN/GI: Abdomen soft, non-tender, bowel sounds present, no rebound, no guarding incisions c/d/i x 3 with no skin bruising noted GENITOURINARY: deferred currently EXTREMITIES: No cyanosis or edema. BACK: Nontender without obvious deformity. No CVA tenderness. NEUROLOGICAL: Awake and alert. Weak. Normal speech. Data Data Vital Signs Reviewed: Yes Orders Orders Basic Metabolic Panel (Bmp) (10/19/17 10:03) Complete Blood Count With Diff (10/19/17 10:03) Type And Screen (10/19/17 10:03) Ct Brain W/O Iv Contrast(Rout) (10/19/17 10:03) Iv Access Insert/Monitor (10/19/17 10:03) Ecg Monitoring (10/19/17 10:03) Oximetry (10/19/17 10:03) Sodium Chloride 0.9% Flush (Ns Flush) (10/19/17 10:15) Ct Abd/Pel W Iv Contrast(Rout) (10/19/17 ) Chest, Single Ap (10/19/17 ) Sodium Chlor 0.9% 1000 Ml Inj (Ns 1000 M (10/19/17 10:15) Lactic Acid (10/19/17 10:21) Red Blood Cells (Rbc) (10/19/17 10:34) Blood Product Administration (10/19/17 10:34) Sodium Chlor 0.9% 250 Ml Inj (Ns 250 Ml (10/19/17 10:45) Urinalysis - C+S If Indicated (10/19/17 10:54) Electrocardiogram (10/19/17 10:09) Urine Culture (10/19/17 11:22) Iohexol 350 Inj (Omnipaque 350 Inj) (10/19/17 11:57) Piperacil-Tazo 3.375 Gm Premix (Zosyn 3. (10/19/17 13:00) Sodium Chlor 0.9% 1000 Ml Inj (Ns 1000 M (10/19/17 13:00) Admit Order (Ed Use Only) (10/19/17 12:55) Place In Observation (10/19/17 ) Code Status (10/19/17 13:00) Vital Signs (Adult) Q4H (10/19/17 13:00) Activity Oob Ad La (10/19/17 13:00) Intake + Output LIZBETH.QSHIFT (10/19/17 13:00) Lactated Ringer's 1000 Ml Inj (Lr 1000 M (10/19/17 13:00) Sodium Chloride 0.9% Flush (Ns Flush) (10/19/17 13:00) Sodium Chloride 0.9% Flush (Ns Flush) (10/19/17 21:00) Oxycodone-Acetamin 5-325 Mg (Percocet (10/19/17 13:00) Oxycodone-Acetamin 5-325 Mg (Percocet (10/19/17 13:00) Diphenhydramine (Benadryl) (10/19/17 13:00) Ondansetron Inj (Zofran Inj) (10/19/17 13:00) Promethazine (Phenergan) (10/19/17 13:00) Complete Blood Count With Diff (10/20/17 06:00) Lorazepam (Ativan) (10/19/17 13:00) Scd Bilateral/Knee High LIZBETH.QSHIFT (10/19/17 13:00) Acetaminophen 1000 Mg/100 Ml (Ofirmev 10 (10/19/17 13:00) Ibuprofen (Motrin) (10/19/17 13:00) Docusate Sodium-Senna (Mary-Colace) (10/19/17 21:00) Complete Blood Count With Diff (10/19/17 18:00) Blood Product Administration (10/19/17 15:00) Labs Laboratory Tests Test 10/19/17 10:15 10/19/17 10:27 10/19/17 11:22 White Blood Count 20.1 Red Blood Count 2.55 Hemoglobin 7.3 Hematocrit 21.8 Mean Corpuscular Volume 85.5 Mean Corpuscular Hemoglobin 28.6 Mean Corpuscular Hemoglobin Concent 33.4 Red Cell Distribution Width 12.6 Platelet Count 263 Mean Platelet Volume 7.2 Neutrophils (%) (Auto) 95.7 Lymphocytes (%) (Auto) 1.6 Monocytes (%) (Auto) 2.5 Eosinophils (%) (Auto) 0.0 Basophils (%) (Auto) 0.2 Neutrophils # (Auto) 19.3 Lymphocytes # (Auto) 0.3 Monocytes # (Auto) 0.5 Eosinophils # (Auto) 0.0 Basophils # (Auto) 0.0 CBC Comment DIFF FINAL Differential Comment Blood Urea Nitrogen 8 Creatinine 0.72 Random Glucose 167 Calcium Level 8.3 Sodium Level 136 Potassium Level 4.1 Chloride Level 102 Carbon Dioxide Level 23.6 Anion Gap 10 Estimat Glomerular Filtration Rate 94 Lactic Acid Level 3.4 Urine Color YELLOW Urine Turbidity HAZY Urine pH 5.5 Urine Specific [place] 1.025 Urine Protein TRACE Urine Glucose (UA) 1000 Urine Ketones 80 Urine Occult Blood SMALL Urine Nitrite NEG Urine Bilirubin NEG Urine Urobilinogen LESS THAN 2.0 Urine Leukocyte Esterase NEG Urine RBC 1 Urine WBC 1 Urine Squamous Epithelial Cells 9 Urine Bacteria RARE Urine Mucus FEW Microscopic Urinalysis Comment CATH-CULTURE IND Date/Time Source Procedure Growth Status 10/19/17 11:22 Urine Catheterized Urine Urine Culture Pending Received [facility] Medical Record Reviewed: Yes Plan 31 yo POD#3 s/p LAVH, LSO, R-salpingectomy, with syncopal episode overnight, anemia, leukocytosis with left shift, lactic acidosis, questionable UTI on Udip (culture pending) 1) POD#3: based on symptoms, labs, and exam recommend observation overnight with transfusion of 2 units PRBCs, 1st unit in process, will f/u vitals and symptoms, CT scan abd with subacute findings no active bleeding noted, CBC repeat ordered for 6 hours and in AM; single dose Zosyn ordered due to leukocytosis with left shift, will f/u UCx, pending currently; abdomen not acute , incisions c/d/i; continue to monitor closely - will need to see dental specialist as outpt for chipped tooth 2) dispo: not meeting criteria Admitting diagnosis: sepsis, anemia Suni Loyd MD Oct 19, 2017 13:18
[2017-10-19] MEDS ORDERED: PILL SPLITTER OTHER PRN (14:45)
[2017-10-19] MEDS ORDERED: ACETAMINOPHEN 1000 MG/100 ML 100 ML IV SCH (15:00)
[2017-10-19] MEDS: IBUPROFEN 600 MG TAB PO PRN (18:11)
[2017-10-19] MEDS ORDERED: SODIUM CHLORIDE 0.9% FLUSH 10 ML FLUSH IV FLUSH SCH (21:00)
[2017-10-19] MEDS ORDERED: DOCUSATE SODIUM 50 MG/SENNA 8.6 MG TAB PO SCH (21:00)
[2017-10-19] MEDS: oxyCODONE/ACETAMINOPHEN 5 MG/325 MG TAB PO PRN (22:44)
[2017-10-20 04:09] VITALS: BP 102/63; PULSE 78; RESP 17; TEMP 99
[2017-10-20 05:58] LABS: AUTOMATED NEUTROPHIL # 6.8 TH/MM3 (1.8-7.7); BASOPHIL % 0.5 % (0.0-2.0); EOSINOPHIL # 0.3 TH/MM3 (0-0.4); EOSINOPHIL % 3.2 % (0.0-4.0); HEMATOCRIT 22.9 % (35.0-46.0); HEMOGLOBIN 8.2 GM/DL (11.6-15.3); LYMPH % 12.8 % (9.0-44.0); LYMPHOCYTE # 1.2 TH/MM3 (1.0-4.8); MEAN CELL VOLUME 82.5 FL (80.0-100.0); MEAN CORPUSCULAR HEMOGLOBIN 29.4 PG (27.0-34.0); MEAN CORPUSCULAR HGB CONC 35.6 % (32.0-36.0); MONO % 8.6 % (0.0-8.0); MONOCYTE # 0.8 TH/MM3 (0-0.9); NEUT % 74.9 % (16.0-70.0); PLATELET COUNT 174 TH/MM3 (150-450); RED BLOOD COUNT 2.78 MIL/MM3 (4.00-5.30); RED CELL DISTRIBUTION WIDTH 15.1 % (11.6-17.2)
[2017-10-20 07:43] VITALS: BP 120/65; PULSE 80; RESP 17; TEMP 98.4; O2SAT 99
[2017-10-20 08:20] VITALS: BP 120/65; PULSE 80; RESP 17; TEMP 98.4; O2SAT 99
--- NOTE | 2017-10-20 08:26 | HHI.PR ---
Subjective Remarks POD#4, readmit on POD#3 for syncopal episode, anemia, leukocytosis with left shift, possible UTI from ER on 10/19/17. feeling "100% better today compared to yesterday." Laying in bed, was able to tolerate clears overnight and ordered breakfast. States "I just feel swollen on my right side." Patient is still unclear about her syncopal episode and is unsure if she fell on her right side or not. No vaginal bleeding this AM, denies dysuria or urgency or frequency. No shortness of breath, ambulating and voiding. Pain is dull ache on R flank 1-08/26. Objective Vital Signs Vital Signs Date Time Temp Pulse Resp B/P (MAP) Pulse Ox O2 Delivery O2 Flow Rate FiO2 10/20/17 07:43 98.4 80 17 120/65 (83) 10/20/17 04:09 99.0 78 17 102/63 (76) 10/19/17 23:55 98.5 87 17 109/59 (76) 10/19/17 23:37 18 10/19/17 20:35 99.9 88 18 10/19/17 20:30 99.9 88 18 112/60 99 10/19/17 20:00 100.2 88 18 112/60 (77) 99 10/19/17 17:26 99.3 87 18 102/59 99 10/19/17 17:18 99.9 88 18 104/68 100 10/19/17 17:11 99.3 87 18 106/68 99 10/19/17 17:05 100.1 89 18 99/59 100 10/19/17 16:57 99.7 85 18 99/59 99 10/19/17 16:33 100.0 88 106/59 100 10/19/17 16:24 99.6 90 18 114/60 100 10/19/17 14:40 99.0 88 16 106/64 (78) 100 10/19/17 14:10 90 16 114/58 (76) 100 10/19/17 14:04 99.1 18 18 130/84 99 10/19/17 13:42 99.0 94 15 121/63 (82) 99 Room Air 10/19/17 12:29 99.2 103 18 123/59 99 10/19/17 12:17 99.3 104 18 120/77 (91) 100 Room Air 10/19/17 12:15 99.3 106 18 120/77 10/19/17 11:26 99 18 98 Room Air 10/19/17 10:34 98 18 118/63 (81) 100 Room Air 10/19/17 10:12 18 100 Room Air 10/19/17 10:09 98.0 126 18 118/63 (81) 100 Room Air 10/19/17 09:54 98.7 146 20 129/58 (81) 100 I/O 10/19/17 10/19/17 10/19/17 10/20/17 10/20/17 10/20/17 07:00 15:00 23:00 07:00 15:00 23:00 Intake Total 400 ml 400 ml Balance 400 ml 400 ml Packed Cells 400 ml 400 ml Result Diagram: 10/20/17 0509 10/19/17 1015 Objective Remarks Chest is clear, regular rate and rhythm. Abdomen is soft and non-distended. Swollen in R flank soft tissue c/w hematoma seen on CT scan in muscle. Incisions are clean and dry. steri strips in place. Ext no CCE. A/P Assessment and Plan Post Op Day 4, readmit on POD#3 for syncopal episode, anemia, leukocytosis with left shift, possible UTI - feeling better this AM but d/w pt need to ensure H/H stable; recheck ordered for 6 hours, will f/u result - leukocytosis resolved this AM on repeat labs, will f/u UCx results but no addt 'l antibiotics at this time (was given single dose IV Zosyn in ER yesterday) - suspect R flank swelling is related to trauma as patient had no issues in initial 72 hours postop until fall/syncope; reviewed supportive measures - will recheck this afternoon for possible discharge, pt does have f/u visit with me in office scheduled Monday Suni Loyd MD Oct 20, 2017 08:26
[2017-10-20] MEDS: IBUPROFEN 600 MG TAB PO PRN (08:40)
--- NOTE | 2017-10-20 09:59 | EKG ---
Date Performed: 10/19/2017 Time Performed: 10:09:19 PTAGE: 31 years EKG: SINUS TACHYCARDIA WITH SHORT NM INTERVAL POSSIBLE RIGHT VENTRICULAR CONDUCTION DELAY NONSPE CIFIC T-WAVE ABNORMALITY ABNORMAL RHYTHM ECG NO PREVIOUS TRACING Right atrial enlargment. With the sinus tachycardia and right atrial enlargment, cause of acute right ventricular strain including pulmonary embolist should be excluded c abdulaziz. DOCTOR: Princess Espinoza Interpretating Date/Time 10/20/2017 09:58:13
[2017-10-20] MEDS: oxyCODONE/ACETAMINOPHEN 5 MG/325 MG TAB PO PRN (10:47)
[2017-10-20 12:13] LABS: AUTOMATED NEUTROPHIL # 6.6 TH/MM3 (1.8-7.7); BASOPHIL # 0.1 TH/MM3 (0-0.2); BASOPHIL % 0.9 % (0.0-2.0); EOSINOPHIL # 0.4 TH/MM3 (0-0.4); EOSINOPHIL % 4.6 % (0.0-4.0); HEMATOCRIT 24.5 % (35.0-46.0); HEMOGLOBIN 8.5 GM/DL (11.6-15.3); LYMPH % 13.2 % (9.0-44.0); LYMPHOCYTE # 1.2 TH/MM3 (1.0-4.8); MEAN CORPUSCULAR HGB CONC 34.9 % (32.0-36.0); MONO % 7.9 % (0.0-8.0); MONOCYTE # 0.7 TH/MM3 (0-0.9); NEUT % 73.4 % (16.0-70.0); PLATELET COUNT 194 TH/MM3 (150-450); RED BLOOD COUNT 2.95 MIL/MM3 (4.00-5.30); RED CELL DISTRIBUTION WIDTH 15.1 % (11.6-17.2)
--- NOTE | 2017-10-20 13:31 | HHI.DS ---
Discharge Summary Admission Date Oct 19, 2017 at 12:58 Admitting Diagnosis syncope, anemia (1) Syncope Diagnosis: Principal ICD Codes: R55 - Syncope and collapse Status: Acute (2) Anemia Diagnosis: Principal ICD Codes: D64.9 - Anemia, unspecified Status: Acute Procedures transfusion 2 units PRBCs Brief History 31 yo with history of uncomplicated LAVH, LSO, R salpingectomy on Monday10/16/17 presented to ER on POD#3 (10/19/17) with h/o syncopal episode overnight, was found to be tachycardic and anemic. Admitted for transfusion and further workup. CBC/BMP: 10/20/17 1134 10/19/17 1015 Significant Findings Laboratory Tests Test 10/19/17 10:15 10/19/17 10:27 10/19/17 11:22 10/20/17 05:09 White Blood Count 20.1 TH/MM3 (4.0-11.0) Red Blood Count 2.55 MIL/MM3 (4.00-5.30) 2.78 MIL/MM3 (4.00-5.30) Hemoglobin 7.3 GM/DL (11.6-15.3) 8.2 GM/DL (11.6-15.3) Hematocrit 21.8 % (35.0-46.0) 22.9 % (35.0-46.0) Neutrophils (%) (Auto) 95.7 % (16.0-70.0) 74.9 % (16.0-70.0) Lymphocytes (%) (Auto) 1.6 % (9.0-44.0) Neutrophils # (Auto) 19.3 TH/MM3 (1.8-7.7) Lymphocytes # (Auto) 0.3 TH/MM3 (1.0-4.8) Random Glucose 167 MG/DL (74-106) Calcium Level 8.3 MG/DL (8.5-10.1) Lactic Acid Level 3.4 mmol/L (0.4-2.0) Urine Turbidity HAZY (CLEAR) Urine Glucose (UA) 1000 mg/dL (NEG) Urine Ketones 80 mg/dL (NEG) Urine Occult Blood SMALL (NEG) Urine Bacteria RARE /hpf (NONE) Urine Mucus FEW /lpf (OCC) Monocytes (%) (Auto) 8.6 % (0.0-8.0) Test 10/20/17 11:34 Red Blood Count 2.95 MIL/MM3 (4.00-5.30) Hemoglobin 8.5 GM/DL (11.6-15.3) Hematocrit 24.5 % (35.0-46.0) Neutrophils (%) (Auto) 73.4 % (16.0-70.0) Eosinophils (%) (Auto) 4.6 % (0.0-4.0) PE at Discharge A&O x 3 NAD CTA b/l no wheeze RRR no murmur, no longer tachycardic incisions c/d/i x 3 abdomen mild swelling along R flank & into mons; trauma related (fall 10/19/17) no bleeding on pad no c/c/e x 4 Hospital Course Patient began to feel improved after transfusion, was no longer feeling weak or dizzy, just tender along R flank where patient suspects she fell during syncopal episode. On HD#2 pt's lab values normalized with no further leukocytosis, H/H was stable post transfusion and pt was able to ambulate and void without issue. Cleared for discharge with strict postop precautions and has office f/u on Monday with me. Pt Condition on Discharge: Good Discharge Disposition: Discharge Home Discharge Instructions DIET: Follow Instructions for: As Tolerated, No Restrictions, Iron Rich Diet Activities you can perform: Shower Only-No Bath, Pelvic Rest Activities to avoid: Strenuous Activity, Driving, Sexual Activity Suni Loyd MD Oct 20, 2017 13:31
== END 2017-10-20 15:35 | disposition home or self-care (01) ==
LOC: NEPE 09:41 → NEDA 12:58 → H1EA 14:27
PROVIDERS: ADMIT Obstetrics & Gynecology; ATTEND Obstetrics & Gynecology
DX: A41.51 Sepsis due to Escherichia coli [E. coli] (principal); N39.0 Urinary tract infection, site not specified; R55 Syncope and collapse; R10.31 Right lower quadrant pain; R53.1 Weakness; R00.0 Tachycardia, unspecified; D64.9 Anemia, unspecified; Z90.710 Acquired absence of both cervix and uterus
CPT/HCPCS: 36430; 70450; 71045; 74177; 80048; 81001; 83605; 85025; 86850; 86900; 86901; 86920; 87077; 87086; 87186; 93005; 96365; 96375; 99291; G0378; J0131; J2405; J2543; J7030; J7050; J7120; P9016; Q9967

== ENCOUNTER 2017-10-26 19:51 | Inpatient (IN) | payer OTHER ==
[~2017-10-26] VITALS: Ht 175.3 cm; Wt 50.2 kg
[2017-10-26 20:39] VITALS: BP 128/60; PULSE 109; RESP 18; TEMP 101.6; O2SAT 99
[2017-10-26] MEDS ORDERED: SODIUM CHLOR 0.9% 1000 ML INJ 1,000 ML IV SCH (21:14)
[2017-10-26] MEDS ORDERED: ONDANSETRON HCL 4 MG/2 ML VIAL IVP ONE (21:15)
[2017-10-26] MEDS ORDERED: MORPHINE SULFATE 4 MG/ML INJ IV PUSH ONE (21:15)
[2017-10-26] MEDS ORDERED: SODIUM CHLORIDE 0.9% FLUSH 10 ML FLUSH IV FLUSH PRN (21:15)
[2017-10-26 22:01] VITALS: BP 123/60; PULSE 75; RESP 16; O2SAT 100
[2017-10-26 22:05] LABS: AUTOMATED NEUTROPHIL # 10.3 TH/MM3 (1.8-7.7); BASOPHIL # 0.1 TH/MM3 (0-0.2); BASOPHIL % 0.9 % (0.0-2.0); EOSINOPHIL # 0.2 TH/MM3 (0-0.4); EOSINOPHIL % 1.6 % (0.0-4.0); HEMATOCRIT 28.4 % (35.0-46.0); HEMOGLOBIN 9.8 GM/DL (11.6-15.3); LYMPH % 6.3 % (9.0-44.0); LYMPHOCYTE # 0.8 TH/MM3 (1.0-4.8); MEAN CELL VOLUME 82.7 FL (80.0-100.0); MEAN CORPUSCULAR HEMOGLOBIN 28.7 PG (27.0-34.0); MEAN CORPUSCULAR HGB CONC 34.6 % (32.0-36.0); MEAN PLATELET VOLUME 6.4 FL (7.0-11.0); MONO % 7.4 % (0.0-8.0); MONOCYTE # 0.9 TH/MM3 (0-0.9); NEUT % 83.8 % (16.0-70.0); PLATELET COUNT 586 TH/MM3 (150-450); RED BLOOD COUNT 3.43 MIL/MM3 (4.00-5.30); RED CELL DISTRIBUTION WIDTH 14.3 % (11.6-17.2); WHITE BLOOD COUNT 12.3 TH/MM3 (4.0-11.0)
[2017-10-26 22:07] LABS: AMORPHOUS SEDIMENT, URINE RARE; BACTERIA, URINE MANY /hpf; BILIRUBIN, URINE NEG (NEG); BLOOD, URINE MOD (NEG); GLUCOSE,URINE NEG (NEG); KETONE, URINE 40 mg/dL (NEG); NITRITE,URINE NEG (NEG); PH, URINE 7.5 (5.0-8.5); SQUAMOUS EPITHELIAL CELL URINE 8 /hpf (0-5); URINE COLOR YELLOW (YELLW/STRAW); URINE LEUKOCYTE ESTERASE LARGE (NEG)
[2017-10-26] MEDS ORDERED: cefTRIAXone INJ 1,000 MG in SODIUM CHLORIDE 0.9% INJ 100 ML IV ONE (22:15)
[2017-10-26 22:19] LABS: ALBUMIN 3.4 GM/DL (3.4-5.0); AST (GOT) 15 U/L (15-37); BICARBONATE 23.8 MEQ/L (21.0-32.0); BLOOD UREA NITROGEN 7 MG/DL (7-18); CALCIUM 9.3 MG/DL (8.5-10.1); CHLORIDE 100 MEQ/L (98-107); CREATININE 0.62 MG/DL (0.50-1.00); GLOMERULAR FILTRATION RATE 112 ML/MIN (>89); GLUCOSE,RANDOM 108 MG/DL (74-106); SODIUM (NA) 134 MEQ/L (136-145)
[2017-10-26 22:20] LABS: ALT (GPT) 17 U/L (10-53)
[2017-10-26 22:22] LABS: ALKALINE PHOSPHATASE 62 U/L (45-117); TOTAL BILIRUBIN ADULT 0.8 MG/DL (0.2-1.0); TOTAL PROTEIN 8.2 GM/DL (6.4-8.2)
--- NOTE | 2017-10-26 22:33 | PD ---
HPI Chief Complaint: Fever Time Seen by Provider: 21:08 Travel History International Travel<30 days: No Contact w/Intl Traveler<30days: No Traveled to known affect area: No History of Present Illness HPI 31-year-old female complains of fever as high as 104 today. She reports undergoing laparoscopic hysterectomy 10 days prior. She was readmitted a few days later and required a blood transfusion. She is also diagnosed with E. coli urinary tract infection and was started on Macrobid. She has been compliant with the Macrobid. Fever occurred today. The patient had a fall following the surgery and has had some right abdomen pain since. There has been no change in severity of right abdomen pain. She also describes urinary frequency and dysuria. PFSH Past Medical History Blood Disorders: No Cancer: No Cardiovascular Problems: No Diminished Hearing: No Endocrine: No Gastrointestinal Disorders: No Genitourinary: No Hepatitis: No Hiatal Hernia: No Hypertension: No Immune Disorder: No Implanted Vascular Access Dvce: No Medical other: Yes (ENDOMETRIOSIS) Musculoskeletal: No Neurologic: No Psychiatric: No Reproductive: No Respiratory: No Immunizations Current: Yes ?: Not : 4 Para: 2 Miscarriage: 2 Dilation and Curettage (D&C): Yes (x 2) Past Surgical History AICD: No Body Medical Devices: metal shoulder Gynecologic Surgery: Yes (LAP, BREAST AUGMENTATION) Hysterectomy: Yes Joint Replacement: Yes (RIGHT SHOULDER) Pacemaker: No Other Surgery: No (LAPRO) Social History Alcohol Use: Yes (rare/social) Tobacco Use: No Substance Use: No Allergies-Medications (Allergen,Severity, Reaction): Coded Allergies: methylergonovine (Unverified Allergy, Severe, Anaphylaxis, 10/26/17) succinylcholine (Unverified Allergy, Severe, 10/26/17) sulfamethoxazole (Unverified Allergy, Severe, 10/26/17) trimethoprim (Unverified Allergy, Severe, 10/26/17) Sulfa (Sulfonamide Antibiotics) (Unverified Allergy, Unknown, 10/26/17) Uncoded Allergies: METHERGAN (Allergy, Severe, 10/18/10) Reported Meds & Prescriptions Reported Meds & Active Scripts Active Zofran (Ondansetron HCl) 4 Mg Tab 4 Mg PO Q6HR PRN Senna Plus 8.6-50 mg (Sennosides-Docusate Sodium) 8.6 Mg-50 Mg Tab 1 Tab PO BID 10 Days Oxycodone-Acetaminophen 5-325 (Oxycodone HCl/Acetaminophen) 5 Mg-325 Mg Tablet 1 Tab PO Q4H PRN Ibuprofen 600 Mg Tab 600 Mg PO Q6H PRN Review of Systems Except as stated in HPI: all other systems reviewed are Neg General / Constitutional: Positive: Fever Physical Exam Narrative GENERAL: 31-year-old female pleasant well-nourished well-developed Vital Signs Date Time Temp Pulse Resp B/P (MAP) Pulse Ox O2 Delivery O2 Flow Rate FiO2 10/26/17 22:01 75 16 123/60 (81) 100 Room Air 10/26/17 20:39 101.6 109 18 128/60 (82) 99 SKIN: Warm and dry. HEAD: Atraumatic. Normocephalic. EYES: Pupils equal and round. No scleral icterus. No injection or drainage. ENT: No nasal bleeding or discharge. Mucous membranes pink and moist. NECK: Trachea midline. No JVD. CARDIOVASCULAR: Tachycardia. Regular rhythm. RESPIRATORY: No accessory muscle use. Clear to auscultation. Breath sounds equal bilaterally. GASTROINTESTINAL: Abdomen is soft. There is an ecchymosis in the right lower quadrant. Soft. MUSCULOSKELETAL: Extremities without clubbing, cyanosis, or edema. No obvious deformities. NEUROLOGICAL: Awake and alert. No obvious cranial nerve deficits. Motor grossly within normal limits. Five out of 5 muscle strength in the arms and legs. Normal speech. PSYCHIATRIC: Appropriate mood and affect; insight and judgment normal. Data Data Last Documented VS Vital Signs Date Time Temp Pulse Resp B/P (MAP) Pulse Ox O2 Delivery O2 Flow Rate FiO2 10/26/17 22:01 75 16 123/60 (81) 100 Room Air 10/26/17 20:39 101.6 Orders Orders Complete Blood Count With Diff (10/26/17 21:14) Comprehensive Metabolic Panel (10/26/17 21:14) Lipase (10/26/17 21:14) Lactic Acid (10/26/17 21:14) Urinalysis - C+S If Indicated (10/26/17 21:14) Iv Access Insert/Monitor (10/26/17 21:14) Ecg Monitoring (10/26/17 21:14) Oximetry (10/26/17 21:14) Morphine Inj (Morphine Inj) (10/26/17 21:15) Ondansetron Inj (Zofran Inj) (10/26/17 21:15) Sodium Chlor 0.9% 1000 Ml Inj (Ns 1000 M (10/26/17 21:14) Sodium Chloride 0.9% Flush (Ns Flush) (10/26/17 21:15) Ed Urine Pregnancytest Poc (10/26/17 21:14) Urine Culture (10/26/17 21:55) Ceftriaxone Inj (Rocephin Inj) (10/26/17 22:15) Admit Order (Ed Use Only) (10/26/17 ) Land Conservation Specialist / Telemetry LIZBETH.Q8H (10/26/17 22:55) Vital Signs (Adult) Q4H (10/26/17 22:55) Diet Npo (10/27/17 Breakfast) Activity Oob With Assistance (10/26/17 22:55) Labs Laboratory Tests Test 10/26/17 21:55 White Blood Count 12.3 TH/MM3 Red Blood Count 3.43 MIL/MM3 Hemoglobin 9.8 GM/DL Hematocrit 28.4 % Mean Corpuscular Volume 82.7 FL Mean Corpuscular Hemoglobin 28.7 PG Mean Corpuscular Hemoglobin Concent 34.6 % Red Cell Distribution Width 14.3 % Platelet Count 586 TH/MM3 Mean Platelet Volume 6.4 FL Neutrophils (%) (Auto) 83.8 % Lymphocytes (%) (Auto) 6.3 % Monocytes (%) (Auto) 7.4 % Eosinophils (%) (Auto) 1.6 % Basophils (%) (Auto) 0.9 % Neutrophils # (Auto) 10.3 TH/MM3 Lymphocytes # (Auto) 0.8 TH/MM3 Monocytes # (Auto) 0.9 TH/MM3 Eosinophils # (Auto) 0.2 TH/MM3 Basophils # (Auto) 0.1 TH/MM3 CBC Comment DIFF FINAL Differential Comment Urine Color YELLOW Urine Turbidity HAZY Urine pH 7.5 Urine Specific [place] 1.003 Urine Protein NEG mg/dL Urine Glucose (UA) NEG mg/dL Urine Ketones 40 mg/dL Urine Occult Blood MOD Urine Nitrite NEG Urine Bilirubin NEG Urine Urobilinogen LESS THAN 2.0 MG/DL Urine Leukocyte Esterase LARGE Urine RBC 2 /hpf Urine WBC 35 /hpf Urine Squamous Epithelial Cells 8 /hpf Urine Amorphous Sediment RARE Urine Bacteria MANY /hpf Microscopic Urinalysis Comment CULTURE INDICATED Blood Urea Nitrogen 7 MG/DL Creatinine 0.62 MG/DL Random Glucose 108 MG/DL Total Protein 8.2 GM/DL Albumin 3.4 GM/DL Calcium Level 9.3 MG/DL Alkaline Phosphatase 62 U/L Aspartate Amino Transf (AST/SGOT) 15 U/L Alanine Aminotransferase (ALT/SGPT) 17 U/L Total Bilirubin 0.8 MG/DL Sodium Level 134 MEQ/L Potassium Level 3.8 MEQ/L Chloride Level 100 MEQ/L Carbon Dioxide Level 23.8 MEQ/L Anion Gap 10 MEQ/L Estimat Glomerular Filtration Rate 112 ML/MIN Lactic Acid Level 1.1 mmol/L Lipase 88 U/L MDM Medical Decision Making Medical Screen Exam Complete: Yes Emergency Medical Condition: Yes Medical Record Reviewed: Yes Differential Diagnosis Constipation, Gastritis, Acute Cholecystitis, Biliary Colic, Pancreatitis, RESTREPO , Hepatitis, Bowel Obstruction, Cystitis, Mesenteric Ischemia, AAA, Appendicitis , Renal Stone/Hydronephrosis, GERD, perforated viscous Narrative Course CBC & BMP Diagram 10/26/17 21:55 Total Protein 8.2, Albumin 3.4, Calcium Level 9.3, Alkaline Phosphatase 62, Aspartate Amino Transf (AST/SGOT) 15, Alanine Aminotransferase (ALT/SGPT) 17, Total Bilirubin 0.8 Urinalysis reveals UTI IV fluids given. pain controlled. IV Rocephin given. Patient meets the SIRS criteria. Critical Care Narrative Aggregate critical care time was 35 minutes. Time to perform other separately billable procedures was not included in the critical care time. My time did not include minutes spent treating any other patients simultaneously or on activities that did not directly contribute to the patient's treatment. The services I provided to this patient were to treat and/or prevent clinically significant deterioration that could result in: Septic shock, pain and suffering I provided critical care services requiring my management, as noted below: Chart data review, documentation time, medication orders and management, vital sign assessments/reviewing monitor data, ordering and reviewing lab tests, ordering and interpreting/reviewing x-rays and diagnostic studies, care of the patient and discussion of the patient with the admitting physicians. Diagnosis Primary Impression: UTI (urinary tract infection) Qualified Codes: N30.00 - Acute cystitis without hematuria Additional Impression: SIRS (systemic inflammatory response syndrome) Admitting Information Admitting Physician Requests: Admit Anup De Anda MD Oct 26, 2017 22:33
[2017-10-27] VITALS (12 sets, daily range): BP systolic 106–123; BP diastolic 55–64; PULSE 73–103; RESP 16–18; TEMP 98.3–103.1; O2SAT 95–100
[2017-10-27] MEDS ORDERED: ACETAMINOPHEN 1000 MG/100 ML 100 ML IV ONE (06:00)
--- NOTE | 2017-10-27 06:13 | HHI.HP ---
HPI Chief Complaint fever 104 at home with increasing suprapubic and RLQP 11 days post LAVHLSO rehospitalization POD 3 for syncope, urosepsis and transfusion Date Seen: Oct 27, 2017 Time Seen: 05:58 Travel History International Travel<30 Days: No Contact w/Intl Traveler<30Days: No Known Affected Area: No History of Present Illness HPI 31 yo mwf P2 11 days s/p unremarkable LAVHLSO. Indication had been menometrorrhagia, anemia and hx endometriosis. Post op hgb was ~8 Discharged home but returned after syncopal episode in which she incurred bruising and chipped tooth. Treated for concurrent urosepsis and transfused. Given outpatient macrobid on the and developed fever yesterday. Initially not painful, but developing significant pain on right side. CT on 10/19 showed 3 x 8 x 12 hematoma in rectus muscle on right. May have occurred from fall. Has not eaten since noon yesterday. No nausea, vomiting or diarrhea. Has had bowel movements. Still taking macrobid. History Past Medical History Narrative Medical no chronic or systemic illnesses other than hx endometriosis and heavy menses Obstetric History Obstetric History 2 term SVDs one and five years ago Past Surgical History Narrative Surgical see operative note 10/16/17 Family History Family History: Negative Social History Alcohol Use: No Tobacco Use: No Substance Abuse: No Allergies-Medications (Allergen,Severity, Reaction): Coded Allergies: methylergonovine (Unverified Allergy, Severe, Anaphylaxis, 10/26/17) succinylcholine (Unverified Allergy, Severe, 10/26/17) sulfamethoxazole (Unverified Allergy, Severe, 10/26/17) trimethoprim (Unverified Allergy, Severe, 10/26/17) Sulfa (Sulfonamide Antibiotics) (Unverified Allergy, Unknown, 10/26/17) Uncoded Allergies: METHERGAN (Allergy, Severe, 10/18/10) Home Meds Active Scripts Ondansetron (Zofran) 4 Mg Tab, 4 MG PO Q6HR Y for NAUSEA OR VOMITING, #10 TAB 1 Refill Prov:Suni Loyd MD 10/17/17 Sennosides-Docusate Sodium (Senna Plus 8.6-50 mg) 8.6 Mg-50 Mg Tab, 1 TAB PO BID for Constipation for 10 Days, #20 TAB 1 Refill Prov:Suni Loyd MD 10/16/17 Oxycodone HCl/Acetaminophen (Oxycodone-Acetaminophen 5-325) 5 Mg-325 Mg Tablet, 1 TAB PO Q4H Y for PAIN SCALE 1 TO 5, #20 TAB 0 Refills Prov:Suni Loyd MD 10/16/17 Ibuprofen (Ibuprofen) 600 Mg Tab, 600 MG PO Q6H Y for PAIN 1-10 AND/OR FEVER > 101F, #30 TAB 1 Refill Prov:Suni Loyd MD 10/16/17 Review of Systems General / Constitutional: Fever, Chills HENT: Dental Difficulties Gastrointestinal: Abdominal Pain, Loss of Appetite Genitourinary: Pelvic Pain, Vaginal Bleeding Psychiatric: Anxiety Physical Exam Vital Signs Date Time Temp Pulse Resp B/P (MAP) Pulse Ox O2 Delivery O2 Flow Rate FiO2 10/27/17 04:17 99.0 73 16 106/55 (72) 95 10/27/17 00:19 78 10/27/17 00:09 98.3 76 16 120/62 (81) 100 10/26/17 22:01 75 16 123/60 (81) 100 Room Air 10/26/17 20:39 101.6 109 18 128/60 (82) 99 Narrative GENERAL: Well-nourished, well-developed patient, slim patient in fowlers position and painful SKIN: Warm and dry. HEAD: Normocephalic and atraumatic. EYES: No scleral icterus. No injection or drainage. ENT: No nasal drainage noted. Mucous membranes pink. Airway patent. NECK: Supple, trachea midline. No JVD. CARDIOVASCULAR: Regular rate and rhythm without murmurs, gallops, or rubs. RESPIRATORY: Breath sounds equal bilaterally. No accessory muscle use. BREASTS: Bilateral exam showed no masses , no retractions, no nipple discharge. ABDOMEN/GI: Abdomen soft, non-tender, bowel sounds present, no rebound, no guarding tender to percussion and palpation more on right. incisions clean and dry echymoses on right side GENITOURINARY: External Genitalia: intact and normal in appearance old blood on pad EXTREMITIES: No cyanosis or edema. - [place] BACK: Nontender without obvious deformity. No CVA tenderness. NEUROLOGICAL: Awake and alert. Motor and sensory grossly within normal limits. Five out of 5 muscle strength in all muscle groups. Normal speech. Caprini VTE Risk Assessment Caprini VTE Risk Assessment: No/Low Risk (score <= 1) Caprini Risk Assessment Model Point Value = 1 Point Value = 2 Point Value = 3 Point Value = 5 Age 41-60 Minor surgery BMI > 25 kg/m2 Swollen legs Varicose veins or History of unexplained or recurrent spontaneous Oral contraceptives or hormone replacement Sepsis (< 1 month) Serious lung disease, including pneumonia (< 1 month) Abnormal pulmonary function Acute myocardial infarction Congestive heart failure (< 1 month) History of inflammatory bowel disease Medical patient at bed rest Age 61-74 Arthroscopic surgery Major open surgery (> 45 min) Laparoscopic surgery (> 45 min) Malignancy Confined to bed (> 72 hours) Immobilizing plaster cast Central venous access Age >= 75 History of VTE Family history of VTE Factor V Leiden Prothrombin [id number] Lupus anticoagulant Anticardiolipin antibodies Elevated serum homocysteine Heparin-induced thrombocytopenia Other congenital or acquired thrombophilia Stroke (< 1 month) Elective arthroplasty Hip, pelvis, or leg fracture Acute spinal cord injury (< 1 month) Prophylaxis Regimen Total Risk Factor Score Risk Level Prophylaxis Regimen 0-1 Low Early ambulation 2 Moderate Order ONE of the following: *Sequential Compression Device (SCD) *Heparin 5000 units SQ BID 3-4 Higher Order ONE of the following medications: *Heparin 5000 units SQ TID *Enoxaparin/Lovenox 40 mg SQ daily (WT < 150 kg, CrCl > 30 mL/min) *Enoxaparin/Lovenox 30 mg SQ daily (WT < 150 kg, CrCl > 10-29 mL/min) *Enoxaparin/Lovenox 30 mg SQ BID (WT < 150 kg, CrCl > 30 mL/min) AND/OR *Sequential Compression Device (SCD) 5 or more Highest Order ONE of the following medications: *Heparin 5000 units SQ TID (Preferred with Epidurals) *Enoxaparin/Lovenox 40 mg SQ daily (WT < 150 kg, CrCl > 30 mL/min) *Enoxaparin/Lovenox 30 mg SQ daily (WT < 150 kg, CrCl > 10-29 mL/min) *Enoxaparin/Lovenox 30 mg SQ BID (WT < 150 kg, CrCl > 30 mL/min) AND *Sequential Compression Device (SCD) Data Data Orders Orders Complete Blood Count With Diff (10/26/17 21:14) Comprehensive Metabolic Panel (10/26/17 21:14) Lipase (10/26/17 21:14) Lactic Acid (10/26/17 21:14) Urinalysis - C+S If Indicated (10/26/17 21:14) Iv Access Insert/Monitor (10/26/17 21:14) Ecg Monitoring (10/26/17 21:14) Oximetry (10/26/17 21:14) Morphine Inj (Morphine Inj) (10/26/17 21:15) Ondansetron Inj (Zofran Inj) (10/26/17 21:15) Sodium Chlor 0.9% 1000 Ml Inj (Ns 1000 M (10/26/17 21:14) Sodium Chloride 0.9% Flush (Ns Flush) (10/26/17 21:15) Ed Urine Pregnancytest Poc (10/26/17 21:14) Urine Culture (10/26/17 21:55) Ceftriaxone Inj (Rocephin Inj) (10/26/17 22:15) Admit Order (Ed Use Only) (10/26/17 ) Tray Line Supervisor / Telemetry LIZBETH.Q8H (10/26/17 22:55) Vital Signs (Adult) Q4H (10/26/17 22:55) Diet Npo (10/27/17 Breakfast) Activity Oob With Assistance (10/26/17 22:55) Ct Abd/Pel W Iv Contrast(Rout) (10/27/17 ) Acetaminophen 1000 Mg/100 Ml (Ofirmev 10 (10/27/17 05:45) Morphine Inj (Morphine Inj) (10/27/17 05:45) Labs Laboratory Tests Test 10/26/17 21:55 White Blood Count 12.3 Red Blood Count 3.43 Hemoglobin 9.8 Hematocrit 28.4 Mean Corpuscular Volume 82.7 Mean Corpuscular Hemoglobin 28.7 Mean Corpuscular Hemoglobin Concent 34.6 Red Cell Distribution Width 14.3 Platelet Count 586 Mean Platelet Volume 6.4 Neutrophils (%) (Auto) 83.8 Lymphocytes (%) (Auto) 6.3 Monocytes (%) (Auto) 7.4 Eosinophils (%) (Auto) 1.6 Basophils (%) (Auto) 0.9 Neutrophils # (Auto) 10.3 Lymphocytes # (Auto) 0.8 Monocytes # (Auto) 0.9 Eosinophils # (Auto) 0.2 Basophils # (Auto) 0.1 CBC Comment DIFF FINAL Differential Comment Urine Color YELLOW Urine Turbidity HAZY Urine pH 7.5 Urine Specific [place] 1.003 Urine Protein NEG Urine Glucose (UA) NEG Urine Ketones 40 Urine Occult Blood MOD Urine Nitrite NEG Urine Bilirubin NEG Urine Urobilinogen LESS THAN 2.0 Urine Leukocyte Esterase LARGE Urine RBC 2 Urine WBC 35 Urine Squamous Epithelial Cells 8 Urine Amorphous Sediment RARE Urine Bacteria MANY Microscopic Urinalysis Comment CULTURE INDICATED Blood Urea Nitrogen 7 Creatinine 0.62 Random Glucose 108 Total Protein 8.2 Albumin 3.4 Calcium Level 9.3 Alkaline Phosphatase 62 Aspartate Amino Transf (AST/SGOT) 15 Alanine Aminotransferase (ALT/SGPT) 17 Total Bilirubin 0.8 Sodium Level 134 Potassium Level 3.8 Chloride Level 100 Carbon Dioxide Level 23.8 Anion Gap 10 Estimat Glomerular Filtration Rate 112 Lactic Acid Level 1.1 Lipase 88 Date/Time Source Procedure Growth Status 10/26/17 21:55 Urine Random Urine Urine Culture Pending Worksheet Assessment/Plan Problem List: (1) Postoperative fever ICD Codes: R50.82 - Postprocedural fever (2) S/P laparoscopic assisted vaginal hysterectomy (LAVH) ICD Codes: Z90.710 - Acquired absence of both cervix and uterus Status: Acute Assessment and Plan 1. 11 days post LAVHLSO 2. Anemia and sepsis treated POD 3 large rectus hematoma noted 10/19/17 3. Now fever, spotting, increased right sided pain DDX: persistent UTI; urosepsis\ infected hematoma cuff abcess delayed injury to bowel or bladder Interval CT this am pain managment emperic antibiotic Cassie Madera MD Oct 27, 2017 06:13
[2017-10-27] MEDS ORDERED: MORPHINE SULFATE 4 MG/ML INJ IV PUSH ONE (06:15)
[2017-10-27] MEDS ORDERED: DIATRIZOATE MEGLUM/DIATRIZOATE SOD 9 ML CUP PO ONE (06:15)
[2017-10-27] MEDS ORDERED: cefTRIAXone INJ 1,000 MG in SODIUM CHLORIDE 0.9% INJ 100 ML IV SCH (06:30)
[2017-10-27] MEDS: LACTATED RINGER'S 1000 ML INJ 1,000 ML IV SCH ×2 (06:30→21:10)
[2017-10-27] MEDS ORDERED: AMPICILLIN-SULBACTAM INJ 3 GM in SODIUM CHLORIDE 0.9% INJ 100 ML IV SCH (07:00)
[2017-10-27] MEDS ORDERED: IRON SUCROSE INJ 200 MG in SODIUM CHLORIDE 0.9% INJ 100 ML IV ONE (08:00)
--- NOTE | 2017-10-27 08:24 | HHI.PR ---
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 Madera' s note/H&P Will admit to inpatient, continue with plan of IV fluids, IV Rocephin (urine culture showed resistance to Unasyn, see result from 10/23/17), CT scan not yet done, will f/u result; blood cultures ordered, urine culture repeat ordered as well, will f/u all results and continue to watch closely Compared to my exam in office 10/23/17 bruising is actually improved, especially in mons area which was much more swollen 10/23/17. Patient aware and agreeable to plan of care. Suni Loyd MD Oct 27, 2017 08:24
[2017-10-27] MEDS ORDERED: diphenhydrAMINE HCL 25 MG CAP PO PRN (08:30)
[2017-10-27] MEDS ORDERED: IOHEXOL 350 MG/ML 10 ML VIAL (for RAD DIAG) IVCONTRAST ONE ×2 (08:35→08:39)
[2017-10-27] MEDS ORDERED: KETOROLAC TROMETHAMINE 30 MG/ML (IVP) VIAL IVP SCH (09:00)
--- NOTE | 2017-10-27 09:03 | RADRPT ---
EXAM DATE/TIME: 10/27/2017 08:27 [facility] COMPARISON: CT ABDOMEN & PELVIS W CONTRAST, October 19, 2017, 11:50. INDICATIONS : Right side abdominal pain with fever; ten days post hysterectomy with fluid collection/ hematoma. IV CONTRAST: 93 cc Omnipaque 350 (iohexol) IV ORAL CONTRAST: No oral contrast ingested. RADIATION DOSE: 4.76 CTDIvol (mGy) MEDICAL HISTORY : None SURGICAL HISTORY : Hysterectomy. Breast augmentation, right shoulder surgery. ENCOUNTER: Initial ACUITY: 2 days PAIN SCALE: 4/10 LOCATION: Right lower quadrant TECHNIQUE: Volumetric scanning of the abdomen and pelvis was performed. Using automated exposure control and ad justment of the mA and/or kV according to patient size, radiation dose was kept as low as reasonably achievable to obtain optimal diagnostic quality images. DICOM format image data is available electro nically for review and comparison. FINDINGS: The lower lungs are clear. The liver, gallbladder, spleen and pancreas are unremarkable The adrenals and kidneys appear normal without stone, mass or obstruction There is no right peroneal adenopathy There is minimal induration in the rectus, right lower quadrant. There are complex cystic masses in both adnexa regions. The largest on the right measures 4.1 cm. Smaller on the left measures 3.8 cm . This is associated with trace free fluid in the pelvis. Free air as resolved. CONCLUSION: Postoperative fluid collections as above that has progressed in the interval. I don't see associated inflammatory changes or evidence that these are infected. These are very difficult position to acce ss percutaneous. Repeat pelvic CT with contrast the bladder is pending. Bud Layne MD FACR on October 27, 2017 at 8:56 Board Certified Radiologist. This report was verified electronically.
[2017-10-27] MEDS: HYDROmorphone HCL PF 2 MG/ML VIAL IV PUSH PRN (09:50)
[2017-10-27] MEDS ORDERED: Vancomycin Consult Pharmacy 1 EA OTHER SCH (10:00)
[2017-10-27] MEDS ORDERED: VANCOMYCIN INJ 850 MG in SODIUM CHLOR 0.9% 250 ML INJ 250 ML IV SCH (10:00)
[2017-10-27] MEDS ORDERED: VANCOMYCIN 1,000 MG/NS 250 ML IV ONE ×2 (11:00)
[2017-10-27] MEDS ORDERED: ACETAMINOPHEN 1000 MG/100 ML 100 ML IV PRN (12:00)
[2017-10-27] MEDS ORDERED: ACETAMINOPHEN 1000 MG/100 ML 100 ML IV SCH (12:00)
--- NOTE | 2017-10-27 13:10 | HHI.PR ---
Subjective Remarks Lin Melgoza is a 31 yo POD#11 s/p LAVH, LSO, R salpingectomy on 10/16/17 , readmit for fever, concern for sepsis. Hx: was diagnosed with UTI on 10/23/17 and treated with Macrobid as outpt, states she was compliant but T104F at home and >101F in ER on 10/26/17. Had complication of syncopal episode and fall on POD#3, hit R side on bathtub and chipped front tooth (already repaired), was readmitted for observation and transfusion on 10/18/17 - 10/19/17 and improved clinically at that time. R rectus muscle hematoma on imaging at that admission. Had been evaluated by me at prior admission and in office this week on 10/23/17 and appeared to be improving, afebrile at office visit. Currently Lin states she "feel better than I've felt in a few days." Is now s/p IV Rocephin x 2 doses, due to CT imaging finding of b/l small possible pelvic abscesses vs. hematomas was switched to broad spectrum Vancomycin and Zosyn. Pt is hungry, asks if can eat lunch. Pain in lower pelvis is improved. Still having dark brown blood on pad, no clots, not heavy. Objective Vital Signs Vital Signs Date Time Temp Pulse Resp B/P (MAP) Pulse Ox O2 Delivery O2 Flow Rate FiO2 10/27/17 12:00 98.7 79 18 114/64 (81) 97 10/27/17 09:55 10/27/17 08:00 99.4 96 18 123/61 (81) 98 10/27/17 07:50 84 10/27/17 04:17 99.0 73 16 106/55 (72) 95 10/27/17 00:19 78 10/27/17 00:09 98.3 76 16 120/62 (81) 100 10/26/17 22:01 75 16 123/60 (81) 100 Room Air 10/26/17 20:39 101.6 109 18 128/60 (82) 99 I/O 10/26/17 10/26/17 10/26/17 10/27/17 10/27/17 10/27/17 07:00 15:00 23:00 07:00 15:00 23:00 Intake Total 1000 ml 100 ml 125 ml Balance 1000 ml 100 ml 125 ml Intake IV Total 1000 ml 100 ml 125 ml # Sanitary Pads 1 Pads Last 24 hours Impressions Abdomen/Pelvis CT 10/27/17 0000 Signed Impressions: Service Date/Time: Friday, October 27, 2017 08:27 - CONCLUSION: Postoperative fluid collections as above that has progressed in the interval. I don't see associated inflammatory changes or evidence that these are infected. These are very difficult position to access percutaneous. Repeat pelvic CT with contrast the bladder is pending. Bud Layne MD FACR Result Diagram: 10/26/17215410/26/172154 Objective Remarks Chest is clear, regular rate and rhythm. Abdomen is soft and non-distended. Good BS all 4 quadrants. LSC trochar incisions c/d/i x 3. Bruise along R flank improved compared to my prior exams, no longer swollen in labia or mons as she was on 10/23/17 office eval. Incisions are clean and dry. : pad with dark scant blood, it consulting director than menses. No clots. Ext no CCE. A/P Assessment and Plan Readmit POD#11 s/p LAVH, LSO, R salpingectomy for menorrhagia, chronic pelvic pain, endometriosis, fibroids; febrile on admit, concern for sepsis - UCx +E.coli 10/23/17 with resistance to multiple agents, was on Macrobid appropriately but had spiking temp at home 10/26/17 104F, 101F in ER - repeated UCx on admit, initially treated with IV Rocephin q12h but broadened spectrum of abx and now on Vanc & Zosyn; pharmacy consulted for Vanc mgmt - blood cultures ordered, awaiting results - CT shows small b/l fluid collections in pelvis, questionable small hematomas vs. abscess; no other inflammatory changes, no enlarged LNs, not drainable per Radiologist - voiding well, having normal BMs, hungry and wants to eat, all good signs; clinically appears to be improving, bruise from fall on R flank/mons improved on my serial exams 10/18/17, 10/19/17, 10/23/17 and now today 10/27/17 - was anemic postop at 8, dropped to around 7 on readmit 10/18/17, was transfused 2 units at that time with good response; now Hgb 9.8, improving; s/p Venofer in ER - continue to monitor closely, as this is second readmit d/w pt will await final blood & urine cultures before sending home Patient is not meeting discharge criteria at this time. Dr. Florencio Hernadez is covering this weekend and is well aware of all of the above , he will be caring for this patient until I return to service on Monday. Suni Loyd MD Oct 27, 2017 13:10
[2017-10-27] MEDS: PIPERACIL-TAZO 3.375 GM PREMIX 50 ML IV SCH ×2 (14:22→18:00)
[2017-10-27] MEDS: ACETAMINOPHEN 325 MG TAB PO PRN (21:10)
[2017-10-27] MEDS: VANCOMYCIN 1,000 MG/NS 250 ML IV SCH ×2 (22:18)
[2017-10-27] MEDS: oxyCODONE/ACETAMINOPHEN 5 MG/325 MG TAB PO PRN (22:21)
[2017-10-28] VITALS (8 sets, daily range): BP systolic 109–128; BP diastolic 56–67; PULSE 77–110; RESP 18–20; TEMP 97.8–98.5; O2SAT 98–99
[2017-10-28] MEDS: PIPERACIL-TAZO 3.375 GM PREMIX 50 ML IV SCH ×5 (00:35→23:49)
[2017-10-28] MEDS: oxyCODONE/ACETAMINOPHEN 5 MG/325 MG TAB PO PRN ×3 (05:40→21:24)
[2017-10-28] MEDS: LACTATED RINGER'S 1000 ML INJ 1,000 ML IV SCH ×3 (06:30→22:26)
[2017-10-28 07:23] LABS: AUTOMATED NEUTROPHIL # 10.3 TH/MM3 (1.8-7.7); BASOPHIL # 0.1 TH/MM3 (0-0.2); BASOPHIL % 0.5 % (0.0-2.0); EOSINOPHIL # 0.5 TH/MM3 (0-0.4); EOSINOPHIL % 3.5 % (0.0-4.0); HEMATOCRIT 24.7 % (35.0-46.0); HEMOGLOBIN 8.3 GM/DL (11.6-15.3); LYMPH % 6.4 % (9.0-44.0); LYMPHOCYTE # 0.8 TH/MM3 (1.0-4.8); MEAN CELL VOLUME 82.7 FL (80.0-100.0); MEAN CORPUSCULAR HEMOGLOBIN 27.8 PG (27.0-34.0); MEAN CORPUSCULAR HGB CONC 33.6 % (32.0-36.0); MEAN PLATELET VOLUME 6.2 FL (7.0-11.0); MONO % 9.5 % (0.0-8.0); MONOCYTE # 1.2 TH/MM3 (0-0.9); NEUT % 80.1 % (16.0-70.0); PLATELET COUNT 560 TH/MM3 (150-450); RED BLOOD COUNT 2.99 MIL/MM3 (4.00-5.30); RED CELL DISTRIBUTION WIDTH 14.4 % (11.6-17.2); WHITE BLOOD COUNT 12.9 TH/MM3 (4.0-11.0)
[2017-10-28 07:46] LABS: BICARBONATE 26.2 MEQ/L (21.0-32.0); CALCIUM 8.9 MG/DL (8.5-10.1); CREATININE 0.59 MG/DL (0.50-1.00)
[2017-10-28] MEDS: KETOROLAC TROMETHAMINE 30 MG/ML (IVP) VIAL IVP PRN ×2 (10:32→17:59)
[2017-10-28] MEDS: VANCOMYCIN 1,000 MG/NS 250 ML IV SCH ×4 (10:33→22:31)
[2017-10-28] MEDS ORDERED: IBUPROFEN 600 MG TAB PO PRN (17:00)
[2017-10-28] MEDS ORDERED: ONDANSETRON ODT 4 MG TAB PO PRN (17:00)
--- NOTE | 2017-10-28 17:47 | HHI.PR ---
Subjective Remarks Feeling much better today. Tolerating the diet well. No bowel movement today but she did have a bowel movement yesterday No nausea or vomiting. Still having pain in the lower abdomen pelvis region however it seems to be improving Still having some bleeding from the vagina she uses 6 pads yesterday but is slowing down now No shortness of breath chest pressure or chest pain or dizziness. Objective Vital Signs Date Time Temp Pulse Resp B/P (MAP) Pulse Ox O2 Delivery O2 Flow Rate FiO2 10/28/17 16:14 98.3 94 20 121/67 (85) 99 10/28/17 12:00 98.2 77 20 119/62 (81) 98 10/28/17 08:32 97.8 110 20 128/64 (85) 99 10/28/17 08:00 94 10/28/17 04:00 98.5 84 19 114/56 (75) 99 10/28/17 00:00 97.8 106 20 109/57 (74) 98 10/27/17 22:32 101.4 10/27/17 20:00 103.1 103 18 112/56 (74) 98 I/O 10/27/17 10/27/17 10/27/17 10/28/17 10/28/17 10/28/17 07:00 15:00 23:00 07:00 15:00 23:00 Intake Total 100 ml 125 ml 753 ml 480 ml Balance 100 ml 125 ml 753 ml 480 ml Intake Oral 360 ml 480 ml IV Total 100 ml 125 ml 393 ml # Voids 1 3 2 5 # Bowel Movements 0 0 # Sanitary Pads 1 Pads 1 Pads 2 Pads Result Diagram: 10/28/1761710/28/17617 Other Results Well-developed well-nourished female laying comfortably in bed She does not look acutely ill Chest is clear Heart has a regular rate and rhythm Abdomen is soft slightly tender suprapubically Incisions are healing well there is a hematoma on the right lower quadrant incision site which is not warm and slightly tender Pelvic exam is deferred Extremities there is no clubbing cyanosis or edema Assessment and Plan Assessment and Plan 1. Pelvic abscess I reviewed the CT scan from yesterday and today the area in question is not an ovarian cyst but rather the wall is thickening and is looking more like an abscess this is amenable to CT directed drainage. I would continue the IV antibiotics for 24-48 hours and once she is afebrile consider draining this mass. She also has something right above the vaginal apex and this could be the cause of her bleeding vaginally. This does not look like an abscess and could be the cause of her vaginal bleeding. Also she is 2 weeks out and sometimes with this type of surgery when the vaginal cuff suture breaks you have some bleeding. The plan at this point is to continue the IV antibiotics and I will ask infectious disease to see the patient 2. Anemia I would not give her any blood at this time nor would I give her any benefit as she is infected. Discussed Condition With Patient and her [id number] who is Pamela who is worked here for decades. Samir Hernadez MD Oct 28, 2017 17:47
[2017-10-28] MEDS: DOCUSATE SODIUM 50 MG/SENNA 8.6 MG TAB PO SCH (21:23)
[2017-10-28] MEDS ORDERED: PHARMACY ORDERED LAB ONE (22:45)
[2017-10-29] VITALS: BP 111/59; PULSE 84; PULSE 91; RESP 18; TEMP 97.9; O2SAT 96
[2017-10-29 04:59] VITALS: BP 126/70; PULSE 84; RESP 18; TEMP 99; O2SAT 100
[2017-10-29] MEDS: PIPERACIL-TAZO 3.375 GM PREMIX 50 ML IV SCH ×4 (06:24→23:07)
[2017-10-29] MEDS: LACTATED RINGER'S 1000 ML INJ 1,000 ML IV SCH ×3 (06:25→22:30)
[2017-10-29] MEDS: oxyCODONE/ACETAMINOPHEN 5 MG/325 MG TAB PO PRN ×3 (06:28→23:10)
[2017-10-29 08:08] LABS: AUTOMATED NEUTROPHIL # 8.1 TH/MM3 (1.8-7.7); BASOPHIL # 0.1 TH/MM3 (0-0.2); BASOPHIL % 0.7 % (0.0-2.0); EOSINOPHIL # 0.6 TH/MM3 (0-0.4); EOSINOPHIL % 5.8 % (0.0-4.0); HEMATOCRIT 23.1 % (35.0-46.0); HEMOGLOBIN 7.9 GM/DL (11.6-15.3); LYMPH % 10.7 % (9.0-44.0); LYMPHOCYTE # 1.2 TH/MM3 (1.0-4.8); MEAN CELL VOLUME 82.6 FL (80.0-100.0); MEAN CORPUSCULAR HEMOGLOBIN 28.3 PG (27.0-34.0); MEAN CORPUSCULAR HGB CONC 34.3 % (32.0-36.0); MEAN PLATELET VOLUME 6.3 FL (7.0-11.0); MONO % 8.7 % (0.0-8.0); NEUT % 74.1 % (16.0-70.0); PLATELET COUNT 563 TH/MM3 (150-450); RED BLOOD COUNT 2.79 MIL/MM3 (4.00-5.30); RED CELL DISTRIBUTION WIDTH 14.1 % (11.6-17.2); WHITE BLOOD COUNT 10.9 TH/MM3 (4.0-11.0)
[2017-10-29 08:25] VITALS: BP 112/59; PULSE 82; RESP 20; TEMP 98.1; O2SAT 99
[2017-10-29] MEDS: DOCUSATE SODIUM 50 MG/SENNA 8.6 MG TAB PO SCH ×2 (08:36→21:00)
[2017-10-29 12:00] VITALS: BP 114/65; PULSE 76; RESP 20; TEMP 98.5; O2SAT 99
[2017-10-29] MEDS: VANCOMYCIN 1,000 MG/NS 250 ML IV SCH ×4 (12:22→17:53)
[2017-10-29] MEDS: KETOROLAC TROMETHAMINE 30 MG/ML (IVP) VIAL IVP PRN (12:29)
--- NOTE | 2017-10-29 14:50 | HHI.PR ---
Subjective Remarks Continuing to feel better every day I can tell the medicine is working Vaginal bleeding is subsiding but it is still red and must be pooling because when she gets up and comes out when she is laying down there is nothing on the pad Tolerating the diet well Had 3 good bowel movements yesterday Objective Vital Signs Date Time Temp Pulse Resp B/P (MAP) Pulse Ox O2 Delivery O2 Flow Rate FiO2 10/29/17 12:00 98.5 76 20 114/65 (81) 99 10/29/17 08:25 98.1 82 20 112/59 (76) 99 10/29/17 04:59 99.0 84 18 126/70 (88) 100 10/29/17 00:00 97.9 91 18 111/59 (76) 96 10/29/17 00:00 84 10/28/17 21:00 98.3 85 18 117/64 (81) 99 10/28/17 20:04 85 10/28/17 16:14 98.3 94 20 121/67 (85) 99 I/O 10/28/17 10/28/17 10/28/17 10/29/17 10/29/17 10/29/17 07:00 15:00 23:00 07:00 15:00 23:00 Intake Total 480 ml 1300 ml 300 ml Output Total 2 ml Balance 480 ml 1300 ml 300 ml -2 ml Intake Oral 480 ml IV Total 1300 ml 300 ml Output Urine Total 2 ml # Voids 2 5 4 # Bowel Movements 0 # Sanitary Pads 2 Pads 2 Pads Result Diagram: 10/29/17 0613 10/28/17 0618 Other Results Chest is clear Heart has a regular rate and rhythm Abdomen is soft much less tender, hematoma is resolving Pelvic exam is deferred Extremities no clubbing cyanosis or edema Assessment and Plan Assessment and Plan 1. Pelvic abscess I reviewed the CT again today with Dr. Grayson Layne. The plan now is to repeat the scan tonight and make her n.p.o. past midnight and see if we can possibly drain the abscess versus the infected hematoma. We still need to address the vaginal bleeding and I will discussed with her doctor in the morning before proceeding with any CT-guided procedure. Dr. Miller saw the patient and felt the choice of antibiotics was perfect and she is doing much better clinically and by the laboratory data. I will continue to follow this patient with you as it is a very interesting case 2. Anemia again I would not start any iron at this time but is soon as the infection is cleared we could start her on some iron. Samir Hernadez MD Oct 29, 2017 14:50
--- NOTE | 2017-10-29 16:34 | PD.ID.CON ---
History of Present Illness Service ID Consult Requested By Dr Hernadez Reason for Consult intraabsd abscess Primary Care Physician No Primary Care Physician Diagnoses: History of Present Illness 31 yo female with endometriosis s/p elective hystorectomy:indication had been menometrorrhagia, anemia and hx endometriosis. she was discharged home but returned after syncopal episode Pt was treated for concurrent urosepsis (E.coli) and transfused. Given outpatient macrobid on the and developed fever yesterday. T max 104. WBC in 14 K She gradually developped significant pain on right side. CT on 10/19 showed 3 x 8 x 12 cm fluid collection that was thought to be hematoma in rectus muscle on right. Still was on macrobid. at the time of admission, but was switched to zosyn, vancomycin She is feeling better, but now she is afebrile and her WBC is normal UA abnormal with exess of WBC, clx cw skin contam'n Review of Systems Except as stated in HPI: all other systems reviewed are Neg Past Family Social History Allergies: Coded Allergies: methylergonovine (Unverified Allergy, Severe, Anaphylaxis, 10/26/17) succinylcholine (Unverified Allergy, Severe, 10/26/17) sulfamethoxazole (Unverified Allergy, Severe, 10/26/17) trimethoprim (Unverified Allergy, Severe, 10/26/17) Sulfa (Sulfonamide Antibiotics) (Unverified Allergy, Unknown, 10/26/17) Uncoded Allergies: METHERGAN (Allergy, Severe, 10/18/10) Past Medical History endometriosis Past Surgical History lap hysterectomy on 10/16 Active Ordered Medications zosyn vancomycin Family History non contributory to current ID problem Social History No Tobacco. No ETOH. No Illicit Drugs. Physical Exam Vital Signs Vital Signs Date Time Temp Pulse Resp B/P (MAP) Pulse Ox O2 Delivery O2 Flow Rate FiO2 10/29/17 12:00 98.5 76 20 114/65 (81) 99 10/29/17 08:25 98.1 82 20 112/59 (76) 99 10/29/17 04:59 99.0 84 18 126/70 (88) 100 10/29/17 00:00 97.9 91 18 111/59 (76) 96 10/29/17 00:00 84 10/28/17 21:00 98.3 85 18 117/64 (81) 99 10/28/17 20:04 85 10/28/17 16:14 98.3 94 20 121/67 (85) 99 Physical Exam CONSTITUTIONAL/GENERAL: This is a thin young patient, in no apparent distress. TUBES/LINES/DRAINS: SKIN: No jaundice, rashes, or lesions. Ecchymoses on upper extremities. No wounds seen anteriorly. Skin temperature appropriate. Not diaphoretic. HEAD: Atraumatic. Normocephalic. EYES: Pupils equal and round and reactive. Extraocular motions intact. No scleral icterus. No injection or drainage. Fundi not examined. ENT: Hearing grossly normal. Nose without bleeding or purulent drainage. Throat without visible erythema, exudates, masses, or lesions. NECK: Trachea midline. Supple, nontender. No palpable thyroid enlargement or nodularity. CARDIOVASCULAR: Regular rate and rhythm without murmurs, gallops, or rubs. No JVD. Peripheral pulses symmetric. RESPIRATORY/CHEST: Symmetric, unlabored respirations. Clear to auscultation. Breath sounds equal bilaterally. No wheezes, rales, or rhonchi. GASTROINTESTINAL: Abdomen soft, non-tender, nondistended. No hepato-splenomegaly , or palpable masses. No guarding. Bowel sounds present. Lap incisions are well healed RLQ with evolving ecchymnosis Area is not tender GENITOURINARY: Without palpable bladder distension. MUSCULOSKELETAL: Extremities without clubbing, cyanosis, or edema. No joint tenderness or effusion noted. No calf tenderness. No mottling or clubbing. LYMPHATICS: No palpable cervical or supraclavicular adenopathy. NEUROLOGICAL: Awake and alert. Motor and sensory grossly within normal limits. Follows commands. Cognitively sharp. Moves all extremities. PSYCHIATRIC: No obvious anxiety/depression. no apparent hallucinations or other psychotic thought process. Laboratory Laboratory Tests Test 10/28/17 22:30 10/29/17 06:13 Vancomycin Level Trough 6.0 White Blood Count 10.9 Red Blood Count 2.79 Hemoglobin 7.9 Hematocrit 23.1 Mean Corpuscular Volume 82.6 Mean Corpuscular Hemoglobin 28.3 Mean Corpuscular Hemoglobin Concent 34.3 Red Cell Distribution Width 14.1 Platelet Count 563 Mean Platelet Volume 6.3 Neutrophils (%) (Auto) 74.1 Lymphocytes (%) (Auto) 10.7 Monocytes (%) (Auto) 8.7 Eosinophils (%) (Auto) 5.8 Basophils (%) (Auto) 0.7 Neutrophils # (Auto) 8.1 Lymphocytes # (Auto) 1.2 Monocytes # (Auto) 1.0 Eosinophils # (Auto) 0.6 Basophils # (Auto) 0.1 CBC Comment DIFF FINAL Differential Comment Date/Time Source Procedure Growth Status 10/26/17 21:55 Urine Random Urine Urine Culture - Final 10-50,000 CFU/ML MIXED GRAM POSITIVE ... Complete Result Diagram: 10/29/17 0613 10/28/17 0618 Imaging Last Impressions Abdomen/Pelvis CT 10/27/17 0000 Signed Impressions: Service Date/Time: Friday, October 27, 2017 08:27 - CONCLUSION: Postoperative fluid collections as above that has progressed in the interval. I don't see associated inflammatory changes or evidence that these are infected. These are very difficult position to access percutaneous. Repeat pelvic CT with contrast the bladder is pending. Bud Layne MD FACR Assessment and Plan Assessment and Plan Pelvic abscess following lap hysrterectomy Endometriosis Partially treated UTI, E.coli - cont current abx - agree with plan to drain abscess by IR - further rec's per fluid clx Discussed Condition With Gricelda Schneider MD Oct 29, 2017 16:34
[2017-10-29 16:42] VITALS: BP 123/59; PULSE 77; RESP 20; TEMP 98.1; O2SAT 100
[2017-10-29 21:21] VITALS: BP 114/61; PULSE 72; RESP 18; TEMP 98.7; O2SAT 98
[2017-10-29] MEDS ORDERED: IOHEXOL 350 MG/ML 10 ML VIAL (for RAD DIAG) IVCONTRAST ONE (21:22)
--- NOTE | 2017-10-29 22:03 | RADRPT ---
EXAM DATE/TIME: 10/29/2017 21:00 [facility] COMPARISON: CT ABDOMEN & PELVIS W CONTRAST, October 27, 2017, 8:27. INDICATIONS : Abnormal prior CT. Evaluate for pelvic abscess. IV CONTRAST: 72 cc Omnipaque 350 (iohexol) IV ORAL CONTRAST: No oral contrast ingested. RADIATION DOSE: 5.1 CTDIvol (mGy) MEDICAL HISTORY : endometriosis SURGICAL HISTORY : Hysterectomy. ENCOUNTER: Initial ACUITY: 1 day PAIN SCALE: 6/10 LOCATION: Bilateral pelvis TECHNIQUE: Volumetric scanning of the pelvis was performed. Using automated exposure control and adjustment of t he mA and/or kV according to patient size, radiation dose was kept as low as reasonably achievable to obtain optimal diagnostic quality images. DICOM format image data is available electronically for review and comparison. FINDINGS: BOWEL/MESENTERY: The visualized small and large bowel demonstrate no acute abnormality. There is no free fluid. BLADDER: There is no wall thickening or mass. RETROPERITONEUM: There is no aneurysm or lymphadenopathy. REPRODUCTIVE: There is fluid in the pelvis. This fluid does have high density. There is enhancement surrounding the fluid. The area of enhancement measures approximately 11.6 cm in AP dimension, 12.6 cm in transverse dimension and extends over approximate 6.1 cm height. There is a small focus of air within this flui d in the pelvis. The patient is status post hysterectomy. There is a 5.6 cm complex cystic area seen at the right adnexa. INGUINAL: There is no lymphadenopathy or hernia. MUSCULOSKELETAL: Within normal limits for patient age. CONCLUSION: Complex Fluid collection in the pelvis with surrounding enhancement. This could represent postoperati ve hematoma/seroma. Infection certainly needs to be considered. In addition, there appears to be a co mplex cystic area in the more superior posterior right lateral aspect of this region potentially rela roro to a right ovarian cystic process. Florencio Pedroza MD on October 29, 2017 at 21:54 Board Certified Radiologist. This report was verified electronically.
[2017-10-30] VITALS: BP 144/65; PULSE 107; RESP 18; TEMP 98.1
[2017-10-30] MEDS: VANCOMYCIN 1,000 MG/NS 250 ML IV SCH ×6 (02:37→18:59)
[2017-10-30 05:52] VITALS: BP 125/60; PULSE 90; RESP 18; TEMP 98.1; O2SAT 99
[2017-10-30] MEDS: PIPERACIL-TAZO 3.375 GM PREMIX 50 ML IV SCH ×3 (06:06→18:24)
[2017-10-30] MEDS: ACETAMINOPHEN 325 MG TAB PO PRN (06:20)
[2017-10-30 08:00] VITALS: BP 128/69; PULSE 81; RESP 18; TEMP 98.8; O2SAT 100
[2017-10-30] MEDS ORDERED: MICROFIBRILLAR COLLAGEN HEMOSTAT 1 GM PKT ONE (08:02)
[2017-10-30] MEDS ORDERED: VASOPRESSIN 20 UNITS/ML VIAL ONE (08:03)
[2017-10-30] MEDS ORDERED: GELATIN POWDER 1 GM PACKET ONE (08:03)
[2017-10-30] MEDS: DOCUSATE SODIUM 50 MG/SENNA 8.6 MG TAB PO SCH ×2 (09:00→21:00)
[2017-10-30 09:50] LABS: MEAN CELL VOLUME 82.4 FL (80.0-100.0); MEAN CORPUSCULAR HEMOGLOBIN 28.9 PG (27.0-34.0); MEAN CORPUSCULAR HGB CONC 35.1 % (32.0-36.0); PLATELET COUNT 537 TH/MM3 (150-450); RED CELL DISTRIBUTION WIDTH 14.6 % (11.6-17.2); WHITE BLOOD COUNT 8.8 TH/MM3 (4.0-11.0)
[2017-10-30 10:00] LABS: INTERNATIONAL NORMALIZED RATIO 1.1 RATIO
[2017-10-30 10:01] LABS: HEMATOCRIT 19.8 % (35.0-46.0)
[2017-10-30 10:32] LABS: BICARBONATE 26.5 MEQ/L (21.0-32.0); CREATININE 0.43 MG/DL (0.50-1.00)
[2017-10-30] MEDS ORDERED: ACETAMINOPHEN 1000 MG/100 ML 100 ML IV ONE (10:39)
--- NOTE | 2017-10-30 11:05 | MP ---
cc: Dusty Mcmahon MD,Jerry Loyd,Suni HOOVER DATE OF OPERATION: 10/30/2017 PREOPERATIVE DIAGNOSES: Pelvic hematoma/abscess. POSTOPERATIVE DIAGNOSES: Pelvic hematoma/abscess. inflamed sigmoid PROCEDURE PERFORMED: 1. Exploration of pelvis with Dr. Hernadez and Dr. Loyd. 2. Rigid sigmoidoscopy. ANESTHESIA: General. SURGEON: Dr. Mcmahon, LEARNING COORDINATOR : Dr. Hernadez and Dr. Loyd. INDICATIONS FOR PROCEDURE: This is a 31-year-old female who is undergoing a somewhat semi-urgent surgery by the above manager audit. She had a previous gynecologic procedure a couple weeks ago and then had some bleeding problems and developed a significant sized hematoma/abscess in the pelvis. Both Dr. Hernadez and Dr. Loyd asked me to come in to evaluate the pelvic region and the sigmoid because of the inflammatory area. So I came to the operating room when they called me. PROCEDURE: The patient is already in the operating room. She is under general anesthesia. She is in the lithotomy position. Dr. Hernadez and Dr. Loyd have removed a fair amount of old blood clot and an indurated woody area around the sigmoid colon. The omentum is there. All of this has been removed. They asked me to evaluate the sigmoid colon that was closely associated with this abscess. It just seems to be an inflammatory process around the colon. I do not see any injury to the colon or pathology in the colon except for the reactionary process ongoing from her previous surgery and the hematoma/abscess. The omentum is draped over this and somewhat adherent to the sigmoid. It Is not removed. We irrigate. I do not see any obvious pathology to the colon or injury to the colon. I then performed a rigid sigmoidoscopy with the sigmoidoscope up to 20 cm gently insufflating air while Dr. Loyd and Dr. Hernadez placed water in the pelvis. No leakage from the sigmoid colon. I do not see any pathology in the sigmoid colon up to 20 cm. It is nice and pink. The air was then removed. The rigid sigmoidoscope was removed. I advised Dr. Loyd and Dr. Hernadez to place a JAZMIN or a Margarito drain in the pelvis with the inflammatory response around this to assist in drainage of this area. After this portion of the procedure, I left the room and they were completing the gynecologic procedure and closing the abdomen. Dusty Mcmahon MD [facility]IST[facility] , 10:48 AM , 11:05 AM [facility]
[2017-10-30] MEDS ORDERED: SODIUM CHLORIDE 0.9% FLUSH 10 ML FLUSH IV FLUSH PRN (11:15)
[2017-10-30] MEDS ORDERED: NALOXONE HCL 0.4 MG/ML AMP IV PUSH PRN (11:15)
--- NOTE | 2017-10-30 11:15 | HHI.PR ---
Subjective Remarks Late entry; pt seen around 7am, note put in after 11A: Pt evaluated at bedside, although afebrile through weekend, voiding, having BMs and tolerating diet (last evening), repeat CT of pelvis shows markedly abnormal findings with large now almost 12 x 12cm suspected pelvic abscess. Discussed findings w pt and need for exploratory surgery/washout and debridement, possible need for right oophorectomy. Pt consented for procedures & intraoperative blood transfusion if indicated. OR notified & pt added on for this AM. Objective Vital Signs Last [address] 10/29/17 1800 Signed Impressions: Service Date/Time: Sunday, October 29, 2017 21:00 - CONCLUSION: Complex Fluid collection in the pelvis with surrounding enhancement. This could represent postoperative hematoma/seroma. Infection certainly needs to be considered. In addition, there appears to be a complex cystic area in the more superior posterior right lateral aspect of this region potentially related to a right ovarian cystic process. Florencio Pedroza MD Vital Signs Date Time Temp Pulse Resp B/P (MAP) Pulse Ox O2 Delivery O2 Flow Rate FiO2 10/30/17 08:00 98.8 81 18 128/69 (88) 100 10/30/17 05:52 98.1 90 18 125/60 (81) 99 10/30/17 00:00 98.1 107 18 144/65 (91) 10/29/17 21:21 98.7 72 18 114/61 (78) 98 10/29/17 16:42 98.1 77 20 123/59 (80) 100 10/29/17 12:00 98.5 76 20 114/65 (81) 99 I/O 10/29/17 10/29/17 10/29/17 10/30/17 10/30/17 10/30/17 07:00 15:00 23:00 07:00 15:00 23:00 Intake Total 300 ml 560 ml 1412 ml 550 ml Output Total 2 ml Balance 300 ml 558 ml 1412 ml 550 ml Intake Oral 560 ml IV Total 300 ml 1412 ml Packed Cells 400 ml Blood Product IV Normal Saline Flush 150 ml Output Urine Total 2 ml # Voids 4 4 1 2 # Bowel Movements 3 Result Diagram: 10/30/17 0934 10/30/17 0934 Objective Remarks Chest is clear, regular rate and rhythm. Abdomen is soft and non-distended. Good BS all 4 quadrants. LSC trochar incisions c/d/i x 3. Bruise along R flank improved compared to my prior exams, no longer swollen in labia or mons as she was on 10/23/17 office eval. Still warm to touch despite afebrile x 72h Incisions are clean and dry. 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 No clots. Ext no CCE. A/P Assessment and Plan Readmit POD#14 s/p LAVH, LSO, R salpingectomy for menorrhagia, chronic pelvic pain, endometriosis, fibroids; readmit 10/27/17 for fever, concern for sepsis 1) postop day #14 with imaging c/w large pelvic abscess - to OR this AM for ex- lap, washout/debridement, possible R oophorectomy, possible revision of vaginal cuff - pt consented for procedures and blood transfusion if indicated 2) sepsis w/u: repeat UCx contaminated/negative; on Vanc & Zosyn, s/p ID consult , no addt'l antibiotics recommended until pelvic abscess able to be cultures ( will perform intraop) 3) ppx: SCDs ordered, due to concern for bleeding no blood thinner at this time 4) dispo: not meeting criteria Suni Loyd MD Oct 30, 2017 11:15
[2017-10-30] MEDS ORDERED: DO NOT ADM ANY ANTICOAGULANT DRUGS PRN (11:18)
[2017-10-30] MEDS: SODIUM CHLORIDE 0.9% FLUSH 10 ML FLUSH IV FLUSH SCH ×2 (11:20→21:00)
--- NOTE | 2017-10-30 11:20 | MB ---
cc: Dusty Mcmahon MD DATE: 10/30/2017 REASON FOR INTRAOPERATIVE CONSULTATION: Evaluate pelvis and sigmoid colon from previous pelvic hematoma/abscess. HISTORY OF PRESENT ILLNESS: This is a 31-year-old female who, about 10 days ago, underwent a hysterectomy. The recovery immediately postop was fairly well, but then she progressively declined her hemoglobin, started having some bleeding. She was admitted to the hospital. Dr. Hernadez and Dr. Loyd asked me to come to the operating room to evaluate the sigmoid colon and the pelvis. PAST MEDICAL HISTORY: Reviewed with Dr. Loyd and Dr. Hernadez in the operating theater. REVIEW OF SYSTEMS: Unobtainable from the patient. She is under general anesthesia. PHYSICAL EXAMINATION: On examination, she is under general anesthesia. She is on the operating room table, prepped and draped, with a low Pfannenstiel incision. She is in lithotomy position. The abdominal wound is examined. See my operative note. I did a rigid sigmoidoscopy to evaluate the colon. See my operative note. 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 No colon pathology requiring any surgical intervention is seen. I advised Dr. Loyd and Dr. Hernadez to place a JAZMIN or Margarito drain in the pelvis to where this inflammatory response is located. Dusty Mcmahon MD JDB/SB , 10:52 AM , 11:19 AM
[2017-10-30] MEDS ORDERED: *MEPERIDINE 25 MG INJ VIAL PERIprocedural Use ONLY ONE (11:26)
--- NOTE | 2017-10-30 11:26 | HHI.PR ---
Immediate Post Op Note Procedure Date: Oct 30, 2017 Pre Op Diagnosis: (1) Acute abscess of female pelvis (2) Postoperative fever (3) S/P laparoscopic assisted vaginal hysterectomy (LAVH) Post Op Diagnosis: (1) Acute abscess of female pelvis (2) Postoperative fever (3) S/P laparoscopic assisted vaginal hysterectomy (LAVH) Surgeon: Suni Loyd Snowblower Mechanic(s): Florencio Hernadez MD intraoperative consult: Dusty Mcmahon MD Procedure: exam under anesthesia, exploratory laparotomy, washout/debridement of pelvic abscess, debridement of right ovary and repair of right ovary; intraoperative consult by Dr. Mcmahon with rigid sigmoidoscopy (see his separately dictated consult and operative note for details) Findings: malodorous purulent fluid in pelvis and abdomen with firm induration of tissue surrounding right ovary, pelvic sidewalls, and descending colon; vaginal cuff was intact, normal appearing on vaginal exam, sutures intact vaginally and intra -abdominally; on sigmoidoscopy no air bubbles seen; see Dr. Mcmahon's note for full details; no active bleeding noted; right ovary able to be successfully repaired Specimen(s) removed: debrided tissue from abscess; fluid from abscess, fluid culture from abscess Estimated blood loss: approximately 300-350mL clot in pelvis on entry; approximately 50mL additional blood loss during surgery Anesthesia: General Drains: Other (flat channel, LLQ to suction) Fluids: 1500 mL IVF, 2 units PRBC IVF, PRBC Urinary Output (mLs): 700 Patient to: PACU Patient Condition: Suni Azar MD Oct 30, 2017 11:26
[2017-10-30] MEDS ORDERED: MIDAZOLAM HCL 2 MG/2 ML VIAL ONE (11:36)
[2017-10-30] MEDS ORDERED: MORPHINE SULFATE 4 MG/ML INJ ONE (11:37)
[2017-10-30 12:00] VITALS: BP 132/61; PULSE 99; RESP 18; TEMP 98.3; O2SAT 98
[2017-10-30] MEDS: LACTATED RINGER'S 1000 ML INJ 1,000 ML IV SCH ×2 (12:00→23:03)
[2017-10-30] MEDS ORDERED: *morphine SULFATE 8 MG/ML PERIprocedure ONLY ONE (12:03)
--- NOTE | 2017-10-30 12:23 | MP ---
cc: Suni Loyd MD DATE OF OPERATION: 10/30/2017 DATE OF SURGERY: 10/30/2017 PREOPERATIVE DIAGNOSES: 1. Postoperative day #14, status post laparoscopic assisted vaginal hysterectomy, left salpingo-oophorectomy and right salpingectomy for enlarged fibroid uterus, menorrhagia, endometriosis. 2. Postoperative fever. 3. Acute abscess of the female pelvis. POSTOPERATIVE DIAGNOSES: 1. Postoperative day #14, status post laparoscopic assisted vaginal hysterectomy, left salpingo-oophorectomy and right salpingectomy for enlarged fibroid uterus, menorrhagia, endometriosis. 2. Postoperative fever. 3. Acute abscess of the female pelvis. 4. Postoperative day #0. INDICATIONS FOR PROCEDURE: Lin Melgoza is a 31-year-old 4, para 2-0-2-2, who had a scheduled and uncomplicated laparoscopic-assisted vaginal hysterectomy, left salpingo-oophorectomy and right salpingectomy on 10/16/2017 for heavy painful cycles and enlarge fibroid uterus and history of endometriosis on prior surgeries. The patient initially did well during her postoperative course, but on postoperative day #3, the patient had a syncopal episode while in the bathroom. She fell, hitting her right flank and her front tooth, which was chipped. She was seen in the emergency room for evaluation on 10/18/2017. At that time, she was admitted for observation. She was symptomatic from anemia at that time. As her postop hemoglobin had dropped from 8.9 to around 7.5, she was tachycardic and did receive 2 units of blood during that observation. The patient had no other complaints at that time. Her CT scans were essentially benign-appearing. She was not having any bleeding from the vaginal cuff and she was discharged to home. The patient was then seen in the office for routine postop evaluation on 10/18/2017. At that time, review of hospital records showed that urine culture did result in a positive culture for UTI. The patient had received a single dose of Rocephin while inpatient and sensitivities showed that the Escherichia coli urinary tract infection was sensitive to Macrobid. She was started on that and the patient was consistent with therapy. On the evening of , 10/26/2017, the patient reported not feeling well and she took her temperature at home and stated it was up to 104F, which caused her to bring herself to the emergency room when she was seen and evaluated by my colleague, Dr. Madera, on the early learning teacher of 10/27/2017. The patient was found to have some vaginal bleeding, temperature was elevated and there was concern for a pelvic abscess. The patient was admitted and started on IV vancomycin and Zosyn. Her fevers did resolve. The patient was feeling better, but she did continue to have some vaginal bleeding from her cuff, which was unusual as it had previously resolved. A CT of the pelvis was repeated on the evening of 10/29/2017 and unfortunately a marked change was found with a very large, approximately 12 x 12 cm, suspected pelvic abscess noted. Due to these findings and the acute change despite broad spectrum antibiotics, it was discussed with the patient on the morning of 10/30/2017 the need for exploratory surgery. The patient consented and as such she was scheduled. PROCEDURE PERFORMED: 1. Exam under anesthesia. 2. Exploratory laparotomy. 3. Washout of and debridement of pelvic abscess. 4. Debridement and repair of right ovary. 5. An intraoperative consult with general surgery was called due to the extensive induration of tissue surrounding the descending colon, and Dr. Dusty Mcmahon did perform additional procedure of rigid sigmoidoscopy. Please see his separate dictated operative note for full details. SURGEON: Suni Loyd MD GAS MAIN FITTER HELPER SURGEON: Florencio Hernadez MD TYPE OF ANESTHESIA: General. ESTIMATED BLOOD LOSS: On entry into the abdominal cavity, approximately 350 mL of fluid was found. During the surgery, approximately an additional 50 mL was lost. IV FLUID REPLACEMENT: 1500 mL of IV fluids were given, 2 units of packed red blood cells were transfused intraoperatively. URINE OUTPUT: 700 mL of clear urine draining in the Busch bag at the conclusion of the procedure. COMPLICATIONS: None. COUNTS: Sponge, lap, instrument and needle correct x 2. SPECIMENS: 1. Culture of fluid from pelvic abscess. 2. Fluid sample of fluid from pelvic abscess. 3. Tissue, cyst, and cyst wall from right ovary, necrotic appearing related to pelvic abscess. PROPHYLAXIS: As the patient was on vancomycin and Zosyn pre-operatively, no additional antibiotics were given intraoperatively. The antibiotics she was already receiving just continued to run. SCDs were on and functioning throughout the entire case. DESCRIPTION OF PROCEDURE: After reviewing the informed consent, the patient was brought to the operating suite, where a timeout was performed to identify the patient, planned procedure and any known allergies to drugs or drug products. The patient was laid in dorsal supine position and general anesthesia was administered without difficulty and found to be adequate. The patient was then gently moved to low lithotomy position in [facility] stirrups and abdomen and perineum were prepped and draped in normal sterile fashion. Attention was turned vaginally, where a weighted speculum was placed. A Guillermo retractor was used to retract anteriorly. The vaginal cuff was visualized. It was found to be intact with no open areas, appeared to be healing well with suture remnants present. Busch catheter was then placed using sterile technique. Sponge stick was placed vaginally to allow for easier identification of the vaginal cuff from intra-abdominal exam. Attention was then turned abdominally, where a Pfannenstiel type skin incision was made with the scalpel and was carried down to the underlying layer of fascia. The superficial tissue was noted to be very edematous, consistent with the patient's prior fall and bruising on the right lower side of her abdomen. The fascia was initially somewhat difficult to identify. Eventually, it was identified, incised sharply, and incision was extended laterally with sharp dissection using Ochoa scissors. The fascia was elevated, and rectus muscles were dissected off sharply with Ochoa scissors. Kochers were then used to elevate the fascia inferiorly and rectus muscles were dissected off sharply. Rectus muscles were in the midline. Peritoneum was identified and entered bluntly. The incision was extended superiorly and inferiorly with good visualization of intra-abdominal contents. Immediately on entry into the abdominal cavity, there was a foul malodorous fluid that was encountered. This was cultured and a fluid sample was taken. On palpation, the tissue surrounding the descending colon and the pelvic townsend was indurated and woody to touch. Copious irrigation with suction was performed. There was a large hemorrhagic-appearing and necrotic appearing cyst attached to the right ovary. The ovarian capsule itself was split in two as if a large cyst may have possibly ruptured and became infected sometime after the surgery. The abscess capsule was gently peeled away from the remaining healthy ovarian tissue and all necrotic tissue that was lying across the superficial surface of the ovary was able to be successfully debrided, leaving healthy right ovarian tissue. This was copiously irrigated and cleaned and the ovary was reapproximated in a baseball type suture with 4-0 Monocryl with excellent hemostasis. Due to the extensive induration and involvement with the colon, an intraoperative consult with Dr. Dusty Mcmahon was called where he evaluated the patient, both abdominally and with rigid sigmoidoscopy. After he placed air into the colon, we filled the abdomen with a sterile solution. No air bubbles were seen. Please see his separate dictated operative note for additional details. Additional irrigation with suction was performed of the abdomen. The internal aspect of the vaginal cuff was evaluated. This area was also gently debrided with sutures remaining in place and normal-appearing. There were no areas of active bleeding found. At this point, a flat channel drain was placed in the pelvis. It was brought out through the left lower quadrant. It was sutured into place using standard maneuvers. The peritoneum was not brought back together due to the infection. The fascia was closed in a running layer with 0 PDS. Extensive irrigation with suction of the subcutaneous tissue was performed. The skin was closed with landy and a pressure dressing was placed on the skin. Sponge stick was removed vaginally and the procedure concluded at this point. DISPOSITION: The patient will likely stay at least another 3-4 days in the hospital with IV antibiotics. We will follow up on the cultures performed. She will be kept n.p.o. for now. We will try clear liquids for the evening and be very slow to advance her diet. She tolerated the procedure well without complication. Due to low pre-operative hemoglobin of 7.0 patient was transfused 2 units of packed red blood cells. MD JUAN C Resendiz/SENA , 11:39 AM , 12:23 PM EFFIE
[2017-10-30 12:35] LABS: BACTERIA, URINE RARE /hpf; BILIRUBIN, URINE NEG (NEG); BLOOD, URINE NEG (NEG); GLUCOSE,URINE NEG (NEG); KETONE, URINE 40 mg/dL (NEG); NITRITE,URINE NEG (NEG); PH, URINE 6.5 (5.0-8.5); SQUAMOUS EPITHELIAL CELL URINE <1 /hpf (0-5); URINE COLOR LIGHT-YELLOW (YELLW/STRAW); URINE LEUKOCYTE ESTERASE NEG (NEG)
[2017-10-30] MEDS: MORPHINE SULFATE 30 MG/30 ML PCA IV SCH ×2 (13:00→16:41)
[2017-10-30] MEDS: HYDROmorphone HCL PF 2 MG/ML VIAL IV PUSH PRN (13:14)
[2017-10-30] MEDS: PCA - TOTAL MG MORPHINE DELIVERED PER SHIFT SCH (15:00)
[2017-10-30 16:00] VITALS: BP 122/73; PULSE 74; RESP 18; TEMP 98.1; O2SAT 96
[2017-10-30] MEDS: ACETAMINOPHEN 1000 MG/100 ML 100 ML IV SCH ×2 (16:40→23:05)
--- NOTE | 2017-10-30 17:10 | PD.PN.STU ---
Subjective Remarks Pt seen today while laying on the bed with family at bedside. Pt reports significant pain, soreness, and chills. Spoke to patient's mom about the findings of the surgery and that tissue, peritoneal fluid, and urine cultures were sent and results are pending. Objective Vitals Vital Signs Date Time Temp Pulse Resp B/P (MAP) Pulse Ox O2 Delivery O2 Flow Rate FiO2 10/30/17 15:00 18 10/30/17 13:00 16 10/30/17 12:30 84 16 123/60 (81) 96 Nasal Cannula 2 10/30/17 12:15 84 16 126/64 (84) 96 Nasal Cannula 2 10/30/17 12:00 98.3 99 18 132/61 (84) 98 10/30/17 12:00 80 16 126/65 (85) 96 Nasal Cannula 2 10/30/17 11:45 74 16 131/70 (90) 98 Nasal Cannula 2 10/30/17 11:30 74 16 141/82 (101) 98 Nasal Cannula 2 10/30/17 11:18 98.4 80 16 141/69 (93) 99 Nasal Cannula 2 10/30/17 08:00 98.8 81 18 128/69 (88) 100 10/30/17 05:52 98.1 90 18 125/60 (81) 99 10/30/17 00:00 98.1 107 18 144/65 (91) 10/29/17 21:21 98.7 72 18 114/61 (78) 98 I/O 10/29/17 10/29/17 10/29/17 10/30/17 10/30/17 10/30/17 07:00 15:00 23:00 07:00 15:00 23:00 Intake Total 300 ml 560 ml 1412 ml 2250 ml Output Total 2 ml 875 ml Balance 300 ml 558 ml 1412 ml 1375 ml Intake Oral 560 ml IV Total 300 ml 1412 ml 1700 ml Packed Cells 400 ml Blood Product IV Normal Saline Flush 150 ml Output Urine Total 2 ml 775 ml Drainage Total 50 ml Estimated Blood Loss 50 ml # Voids 4 4 1 2 # Bowel Movements 3 Result Diagram: 10/30/17 0934 10/30/17 0934 Imaging Microbiology Date/Time Source Procedure Growth Status 10/30/17 10:00 Fluid Other Fungal Smear - Final NO FUNGAL ELEMENTS SEEN. Resulted 10/30/17 10:00 Fluid Other Fungal Culture Pending Resulted 10/30/17 12:01 Urine Catheterized Urine Urine Culture Pending Received 10/30/17 10:00 Wound Other Fungal Smear - Final NO FUNGAL ELEMENTS SEEN. Resulted 10/30/17 10:00 Wound Other Fungal Culture Pending Resulted Laboratory Tests Test 10/28/17 06:18 10/28/17 22:30 10/29/17 06:13 10/30/17 09:34 White Blood Count 12.9 TH/MM3 (4.0-11.0) Red Blood Count 2.99 MIL/MM3 (4.00-5.30) 2.79 MIL/MM3 (4.00-5.30) 2.40 MIL/MM3 (4.00-5.30) Hemoglobin 8.3 GM/DL (11.6-15.3) 7.9 GM/DL (11.6-15.3) 7.0 GM/DL (11.6-15.3) Hematocrit 24.7 % (35.0-46.0) 23.1 % (35.0-46.0) 19.8 % (35.0-46.0) Platelet Count 560 TH/MM3 (150-450) 563 TH/MM3 (150-450) 537 TH/MM3 (150-450) Mean Platelet Volume 6.2 FL (7.0-11.0) 6.3 FL (7.0-11.0) 6.0 FL (7.0-11.0) Neutrophils (%) (Auto) 80.1 % (16.0-70.0) 74.1 % (16.0-70.0) Lymphocytes (%) (Auto) 6.4 % (9.0-44.0) Monocytes (%) (Auto) 9.5 % (0.0-8.0) 8.7 % (0.0-8.0) Neutrophils # (Auto) 10.3 TH/MM3 (1.8-7.7) 8.1 TH/MM3 (1.8-7.7) Lymphocytes # (Auto) 0.8 TH/MM3 (1.0-4.8) Monocytes # (Auto) 1.2 TH/MM3 (0-0.9) 1.0 TH/MM3 (0-0.9) Eosinophils # (Auto) 0.5 TH/MM3 (0-0.4) 0.6 TH/MM3 (0-0.4) Blood Urea Nitrogen 5 MG/DL (7-18) 3 MG/DL (7-18) Eosinophils (%) (Auto) 5.8 % (0.0-4.0) Creatinine 0.43 MG/DL (0.50-1.00) Calcium Level 8.0 MG/DL (8.5-10.1) Chloride Level 109 MEQ/L (98-107) Test 10/30/17 10:00 Urine Ketones 40 mg/dL (NEG) Urine Bacteria RARE /hpf (NONE) 10/30/17 10/30/17 10/31/17 15:00 23:00 07:00 Intake Total 2250 ml Output Total 875 ml Balance 1375 ml IV Total 1700 ml Packed Cells 400 ml Blood Product IV Normal Saline Flush 150 ml Output Urine Total 775 ml Drainage Total 50 ml Estimated Blood Loss 50 ml Objective Remarks GENERAL: WDWN female who appears pale and fatigued but in NAD SKIN: generalized pallor. Warm and dry. HEAD: Normocephalic. EYES: No scleral icterus. No injection or drainage. NECK: Supple, trachea midline. No JVD or lymphadenopathy. CARDIOVASCULAR: Regular rate and rhythm without murmurs, gallops, or rubs. RESPIRATORY: Breath sounds equal bilaterally. No accessory muscle use. GASTROINTESTINAL: Abdomen soft, nondistended, tender to palpation. LLQ JAZMIN drain in place with 50-75ml of serosanguinous fluid. lower abdominal wound vacc bandage in place. Skin around bandage is nonerythematous, nonedematous. MUSCULOSKELETAL: No cyanosis, or edema. No leg pain Procedures exam under anasthesia, exploratory laparotomy, pelvic abscess debridement, right ovarian reconstruction, rigid sigmoidoscopy, A/P Assessment and Plan 1. Pelvic abscess pelvic tissue sample, urine, peritoneal fluid cultures are pending cont IVF and current antibiotic regimen on RESEARCH LABORATORY SPECIALIST q8hr SCD in place for DVT prophylaxis 2. Anemia- Hb 7 received 2 units of blood this AM during surgery cont to monitor labs and vitals Rupa Grissom M3 Oct 30, 2017 17:10
--- NOTE | 2017-10-30 17:38 | HHI.PR ---
Subjective Remarks POD#0 s/p exploratory laparotomy, debridement/washout of pelvic abscess, repair of right ovary, rigid sigmoidoscopy (intraop Gen Surg consult) for postop fever/ pelvic abscess POD#14 s/p LAVH, LSO, R salpingectomy for enlarged fibroid uterus, menorrhagia, endometriosis Pt laying in bed, drinking fluids, in pain but controlled with COPYRIGHT MANAGER and IV Ofirmev; sore; has questions about what was found in surgery Objective Vital Signs Vital Signs Date Time Temp Pulse Resp B/P (MAP) Pulse Ox O2 Delivery O2 Flow Rate FiO2 10/30/17 16:41 18 10/30/17 15:00 18 10/30/17 13:00 16 10/30/17 12:30 84 16 123/60 (81) 96 Nasal Cannula 2 10/30/17 12:15 84 16 126/64 (84) 96 Nasal Cannula 2 10/30/17 12:00 98.3 99 18 132/61 (84) 98 10/30/17 12:00 80 16 126/65 (85) 96 Nasal Cannula 2 10/30/17 11:45 74 16 131/70 (90) 98 Nasal Cannula 2 10/30/17 11:30 74 16 141/82 (101) 98 Nasal Cannula 2 10/30/17 11:18 98.4 80 16 141/69 (93) 99 Nasal Cannula 2 10/30/17 08:00 98.8 81 18 128/69 (88) 100 10/30/17 05:52 98.1 90 18 125/60 (81) 99 10/30/17 00:00 98.1 107 18 144/65 (91) 10/29/17 21:21 98.7 72 18 114/61 (78) 98 I/O 10/29/17 10/29/17 10/29/17 10/30/17 10/30/17 10/30/17 07:00 15:00 23:00 07:00 15:00 23:00 Intake Total 300 ml 560 ml 1412 ml 2250 ml Output Total 2 ml 875 ml 40 ml Balance 300 ml 558 ml 1412 ml 1375 ml -40 ml Intake Oral 560 ml IV Total 300 ml 1412 ml 1700 ml Packed Cells 400 ml Blood Product IV Normal Saline Flush 150 ml Output Urine Total 2 ml 775 ml Drainage Total 50 ml 40 ml Estimated Blood Loss 50 ml # Voids 4 4 1 2 # Bowel Movements 3 Result Diagram: 10/30/17 0934 10/30/17 0934 Objective Remarks Chest is clear, regular rate and rhythm. Abdomen is soft and non-distended. drain with approx 90 cc output since end time of surgery (approx 6 hours ago); light serosanginous fluid; skin site c/d/i ; bandage in place over pfannenstiel type abdominal incision; small area of drainage near mid-right side; not expanding : pad with scant blood No clots. Ext no CCE. SCDs on. A/P Assessment and Plan Readmit on Monday10/27/17 for fever, concern for sepsis, now POD#0 s/p ex-lap, washout & debridement of pelvic abscess, repair of R ovary, rigid sigmoidoscopy (Gen Surg consult intraop); POD#14 s/p LAVH, LSO, R salpingectomy for menorrhagia, chronic pelvic pain, endometriosis, fibroids 1) postop day #0/#14 large pelvic abscess of unclear origin source debrided/ washed out in OR this morning with cultures pending; continue broad spectrum Zosyn and Vancomycin - LLQ drain with approx 90 mL output in past 6h, continue to monitor closely, d/ w pt cannot pull until 25 cc or less daily - SCDs for ppx, will consider ppx lovenox depending on drain output tmrw evening - postop pelvic abscess: unclear source, large ruptured cyst on R ovary, able to debride/remove and salvage ovary; good blood supply; colon evaluation intraop without abnormality; vaginal cuff intact with healthy tissue; await cultures/pathology at this time - anemia: pt transfused 2 units intraoperatively, preop Hgb 7.0; will recheck in AM & daily while inpt - due to unexpected postop course ordered infection screen & A1c for AM - infectious disease involved, once cultures from pelvic abscess resulted will call to discuss length of antibiotic use/possibility of need for PICC line or home nursing care 4) dispo: not meeting criteria; anticipate at least another 3-5d if not longer Suni Loyd MD Oct 30, 2017 17:38
--- NOTE | 2017-10-30 19:26 | HHI.IDPN ---
Subjective Subjective Remarks sp Exploratory laparotomy., Washout of and debridement of pelvic abscess, Debridement and repair of right ovary and intraoperative rigid sigmoidoscopy. Antibiotics zosyn vanco Allergies: Coded Allergies: methylergonovine (Unverified Allergy, Severe, Anaphylaxis, 10/26/17) succinylcholine (Unverified Allergy, Severe, 10/26/17) sulfamethoxazole (Unverified Allergy, Severe, 10/26/17) trimethoprim (Unverified Allergy, Severe, 10/26/17) Sulfa (Sulfonamide Antibiotics) (Unverified Allergy, Unknown, 10/26/17) Uncoded Allergies: METHERGAN (Allergy, Severe, 10/18/10) Objective . Vital Signs Date Time Temp Pulse Resp B/P (MAP) Pulse Ox O2 Delivery O2 Flow Rate FiO2 10/30/17 17:10 18 10/30/17 16:41 18 10/30/17 16:00 98.1 74 18 122/73 (89) 96 10/30/17 15:00 18 10/30/17 13:44 18 10/30/17 13:05 17 10/30/17 13:00 16 10/30/17 12:30 84 16 123/60 (81) 96 Nasal Cannula 2 10/30/17 12:15 84 16 126/64 (84) 96 Nasal Cannula 2 10/30/17 12:00 98.3 99 18 132/61 (84) 98 10/30/17 12:00 80 16 126/65 (85) 96 Nasal Cannula 2 10/30/17 11:45 74 16 131/70 (90) 98 Nasal Cannula 2 10/30/17 11:30 74 16 141/82 (101) 98 Nasal Cannula 2 10/30/17 11:18 98.4 80 16 141/69 (93) 99 Nasal Cannula 2 10/30/17 08:00 98.8 81 18 128/69 (88) 100 10/30/17 05:52 98.1 90 18 125/60 (81) 99 10/30/17 00:00 98.1 107 18 144/65 (91) 10/29/17 21:21 98.7 72 18 114/61 (78) 98 10/30/17 10/30/17 10/31/17 15:00 23:00 07:00 Intake Total 2250 ml Output Total 875 ml 40 ml Balance 1375 ml -40 ml IV Total 1700 ml Packed Cells 400 ml Blood Product IV Normal Saline Flush 150 ml Output Urine Total 775 ml Drainage Total 50 ml 40 ml Estimated Blood Loss 50 ml . Laboratory Tests Test 10/29/17 06:13 10/30/17 09:34 White Blood Count 10.9 TH/MM3 8.8 TH/MM3 Red Blood Count 2.79 MIL/MM3 2.40 MIL/MM3 Hemoglobin 7.9 GM/DL 7.0 GM/DL Hematocrit 23.1 % 19.8 % Mean Corpuscular Volume 82.6 FL 82.4 FL Mean Corpuscular Hemoglobin 28.3 PG 28.9 PG Mean Corpuscular Hemoglobin Concent 34.3 % 35.1 % Red Cell Distribution Width 14.1 % 14.6 % Platelet Count 563 TH/MM3 537 TH/MM3 Mean Platelet Volume 6.3 FL 6.0 FL Neutrophils (%) (Auto) 74.1 % Lymphocytes (%) (Auto) 10.7 % Monocytes (%) (Auto) 8.7 % Eosinophils (%) (Auto) 5.8 % Basophils (%) (Auto) 0.7 % Neutrophils # (Auto) 8.1 TH/MM3 Lymphocytes # (Auto) 1.2 TH/MM3 Monocytes # (Auto) 1.0 TH/MM3 Eosinophils # (Auto) 0.6 TH/MM3 Basophils # (Auto) 0.1 TH/MM3 CBC Comment DIFF FINAL Differential Comment Laboratory Tests Test 10/30/17 09:34 Blood Urea Nitrogen 3 MG/DL Creatinine 0.43 MG/DL Random Glucose 85 MG/DL Calcium Level 8.0 MG/DL Sodium Level 142 MEQ/L Potassium Level 3.5 MEQ/L Chloride Level 109 MEQ/L Carbon Dioxide Level 26.5 MEQ/L Anion Gap 7 MEQ/L Estimat Glomerular Filtration Rate 171 ML/MIN Microbiology Date/Time Source Procedure Growth Status 10/30/17 10:00 Fluid Other Fungal Smear - Final NO FUNGAL ELEMENTS SEEN. Resulted 10/30/17 10:00 Fluid Other Fungal Culture Pending Resulted 10/30/17 10:00 Fluid Other Acid Fast Stain Pending Received 10/30/17 10:00 Fluid Other Mycobacterial Culture Pending Received 10/30/17 10:00 Fluid Other Gram Stain - Final Resulted 10/30/17 10:00 Fluid Other Body Fluid Culture Pending Resulted 10/30/17 12:01 Urine Catheterized Urine Urine Culture Pending Received 10/30/17 10:00 Wound Other Fungal Smear - Final NO FUNGAL ELEMENTS SEEN. Resulted 10/30/17 10:00 Wound Other Fungal Culture Pending Resulted 10/30/17 10:00 Wound Other Acid Fast Stain Pending Received 10/30/17 10:00 Wound Other Mycobacterial Culture Pending Received 10/30/17 10:00 Wound Other Gram Stain - Final Resulted 10/30/17 10:00 Wound Other Wound Culture Pending Resulted Imaging Last Impressions Pelvis CT 10/29/17 1800 Signed Impressions: Service Date/Time: Sunday, October 29, 2017 21:00 - CONCLUSION: Complex Fluid collection in the pelvis with surrounding enhancement. This could represent postoperative hematoma/seroma. Infection certainly needs to be considered. In addition, there appears to be a complex cystic area in the more superior posterior right lateral aspect of this region potentially related to a right ovarian cystic process. Florencio Pedroza MD Abdomen/Pelvis CT 10/27/17 0000 Signed Impressions: Service Date/Time: Friday, October 27, 2017 08:27 - CONCLUSION: Postoperative fluid collections as above that has progressed in the interval. I don't see associated inflammatory changes or evidence that these are infected. These are very difficult position to access percutaneous. Repeat pelvic CT with contrast the bladder is pending. Bud Layne MD FACR Physical Exam CONSTITUTIONAL/GENERAL: This is a thin young patient, in no apparent distress. TUBES/LINES/DRAINS: SKIN: No jaundice, rashes, or lesions. Skin temperature appropriate. Not diaphoretic. EYES: Pupils equal and round and reactive. Extraocular motions intact. No scleral icterus. No injection or drainage. Fundi not examined. CARDIOVASCULAR: Regular rate and rhythm without murmurs, gallops, or rubs. No JVD. Peripheral pulses symmetric. RESPIRATORY/CHEST: Symmetric, unlabored respirations. Clear to auscultation. Breath sounds equal bilaterally. No wheezes, rales, or rhonchi. GASTROINTESTINAL: Abdomen soft, non-tender, nondistended. No hepato-splenomegaly , or palpable masses. No guarding. Bowel sounds present. JAZMIN drains in place Area is not tender GENITOURINARY: Without palpable bladder distension. MUSCULOSKELETAL: Extremities without clubbing, cyanosis, or edema. N NEUROLOGICAL: Awake and alert. Non focal PSYCHIATRIC: No obvious anxiety/depression. no apparent hallucinations or other psychotic thought process. Assessment & Plan Remarks Pelvic abscess following lap hysrterectomy - sp exp lap with decbridement of abscess - necrotic ovarian cyst , severe inflammatory changes encounted Endometriosis Partially treated UTI, E.coli - cont current abx (vanco, zosyn) - final rec's per final clx report Gricelda Miller MD Oct 30, 2017 19:26
[2017-10-30] MEDS: oxyCODONE/ACETAMINOPHEN 5 MG/325 MG TAB PO PRN (19:36)
[2017-10-30 20:00] VITALS: BP 127/60; PULSE 67; RESP 18; TEMP 97.8; O2SAT 97
[2017-10-30] MEDS ORDERED: PHARMACY ORDERED LAB ONE (23:45)
[2017-10-31] VITALS: BP 127/68; PULSE 87; RESP 18; TEMP 99.3; O2SAT 96
[2017-10-31] MEDS: PIPERACIL-TAZO 3.375 GM PREMIX 50 ML IV SCH ×5 (00:29→23:22)
[2017-10-31] MEDS: oxyCODONE/ACETAMINOPHEN 5 MG/325 MG TAB PO PRN ×4 (00:30→23:21)
[2017-10-31] MEDS: MORPHINE SULFATE 30 MG/30 ML PCA IV SCH (02:09)
[2017-10-31] MEDS: VANCOMYCIN 1,000 MG/NS 250 ML IV SCH ×6 (02:21→18:34)
[2017-10-31 04:00] VITALS: BP 108/59; PULSE 78; RESP 18; TEMP 98.5; O2SAT 97
[2017-10-31] MEDS: ACETAMINOPHEN 1000 MG/100 ML 100 ML IV SCH ×2 (04:44→11:00)
[2017-10-31 08:00] VITALS: BP 120/59; PULSE 78; RESP 18; TEMP 98.4; O2SAT 98
--- NOTE | 2017-10-31 08:11 | HHI.PR ---
Subjective Remarks POD#1 s/p exploratory laparotomy, debridement/washout of pelvic abscess, repair of right ovary, rigid sigmoidoscopy (intraop Gen Surg consult) for postop fever/ pelvic abscess POD#15 s/p LAVH, LSO, R salpingectomy for enlarged fibroid uterus, menorrhagia, endometriosis Pt laying in bed, looks better today than last evening, better color to face, smiling, states has been drinking fluids with no nausea or vomiting, was able to sleep last night, pain under better control now, passing flatus, states scant spotting on pad Objective Vital Signs Vital Signs Date Time Temp Pulse Resp B/P (MAP) Pulse Ox O2 Delivery O2 Flow Rate FiO2 10/31/17 04:00 98.5 78 18 108/59 (75) 97 18 02:09 19 10/31/17 00:00 99.3 87 18 127/68 (87) 96 10/30/17 20:00 97.8 67 18 127/60 (82) 97 10/30/17 17:10 18 10/30/17 16:41 18 10/30/17 16:00 98.1 74 18 122/73 (89) 96 10/30/17 15:00 18 10/30/17 13:44 18 10/30/17 13:05 17 10/30/17 13:00 16 10/30/17 12:30 84 16 123/60 (81) 96 Nasal Cannula 2 10/30/17 12:15 84 16 126/64 (84) 96 Nasal Cannula 2 10/30/17 12:00 98.3 99 18 132/61 (84) 98 10/30/17 12:00 80 16 126/65 (85) 96 Nasal Cannula 2 10/30/17 11:45 74 16 131/70 (90) 98 Nasal Cannula 2 10/30/17 11:30 74 16 141/82 (101) 98 Nasal Cannula 2 10/30/17 11:18 98.4 80 16 141/69 (93) 99 Nasal Cannula 2 10/30/17 08:00 98.8 81 18 128/69 (88) 100 I/O 10/30/17 10/30/17 10/30/17 10/31/17 10/31/17 10/31/17 07:00 15:00 23:00 07:00 15:00 23:00 Intake Total 1412 ml 2250 ml Output Total 875 ml 40 ml 1600 ml 3200 ml Balance 1412 ml 1375 ml -40 ml -1600 ml -3200 ml IV Total 1412 ml 1700 ml Packed Cells 400 ml Blood Product IV Normal Saline Flush 150 ml Output Urine Total 775 ml 1600 ml 3200 ml Drainage Total 50 ml 40 ml Estimated Blood Loss 50 ml # Voids 2 RN states that drain had only 25 cc overnight of light serosanginous fluid, excellent UOP >1600mL overnight Result Diagram: 10/30/17 0934 10/30/17 0934 Other Results AM labs being drawn while I was at bedside; approx 0735A Objective Remarks Chest is clear, regular rate and rhythm. Lungs CTA anteriorly & laterally; did not ask pt to sit up Abdomen is soft and non-distended. Good BS all 4 quadrants; Bruising around incision as expected; drain with minimal light serosanginous fluid (approx 10 cc ; yesterday was 90 cc); skin site c/d/i; bandage in place over pfannenstiel type abdominal incision; small area of drainage near mid-right side outlined yesterday, not expanding : pad dry. Ext no CCE. SCDs on. A/P Assessment and Plan Readmit on Monday10/27/17 for fever, concern for sepsis, now: POD#1 s/p ex-lap, washout & debridement of pelvic abscess, repair of R ovary, rigid sigmoidoscopy (Gen Surg consult intraop) POD#15 s/p LAVH, LSO, R salpingectomy for menorrhagia, chronic pelvic pain, endometriosis, fibroids 1) postop day #1/#15 large pelvic abscess of unclear origin source debrided/ washed out in OR 10/30/17 with cultures pending; continue broad spectrum Zosyn and Vancomycin - LLQ drain with approx 90 mL output in first 6h after surgery; last 12h approx 25cc today, continue to monitor closely, d/w pt cannot pull until 25 cc or less daily - SCDs for ppx, will start ppx lovenox today around noon; due to low weight will order 30mg - postop pelvic abscess: unclear source, large ruptured cyst on R ovary, able to debride/remove and salvage ovary; good blood supply; colon evaluation intraop without abnormality; vaginal cuff intact with healthy tissue; await cultures/pathology at this time - anemia: pt transfused 2 units intraoperatively, preop Hgb 7.0; ordered recheck for today AM, just drawn, pending; will plan daily CBC while inpt - due to unexpected postop course ordered infection screen & A1c; drawn today, pending - infectious disease involved, once cultures from pelvic abscess resulted will call to discuss length of antibiotic use/possibility of need for PICC line or home nursing care 4) dispo: not meeting criteria; anticipate at least another 3d if not longer Suni Loyd MD Oct 31, 2017 08:11
[2017-10-31 08:17] LABS: AUTOMATED NEUTROPHIL # 13.2 TH/MM3 (1.8-7.7); BASOPHIL # 0.1 TH/MM3 (0-0.2); BASOPHIL % 0.7 % (0.0-2.0); EOSINOPHIL # 0.1 TH/MM3 (0-0.4); EOSINOPHIL % 0.6 % (0.0-4.0); HEMATOCRIT 32.5 % (35.0-46.0); HEMOGLOBIN 11.2 GM/DL (11.6-15.3); LYMPH % 9.4 % (9.0-44.0); LYMPHOCYTE # 1.5 TH/MM3 (1.0-4.8); MEAN CELL VOLUME 82.2 FL (80.0-100.0); MEAN CORPUSCULAR HEMOGLOBIN 28.2 PG (27.0-34.0); MEAN CORPUSCULAR HGB CONC 34.3 % (32.0-36.0); MEAN PLATELET VOLUME 6.1 FL (7.0-11.0); MONO % 6.1 % (0.0-8.0); NEUT % 83.2 % (16.0-70.0); PLATELET COUNT 752 TH/MM3 (150-450); RED BLOOD COUNT 3.96 MIL/MM3 (4.00-5.30); RED CELL DISTRIBUTION WIDTH 16.2 % (11.6-17.2); WHITE BLOOD COUNT 15.9 TH/MM3 (4.0-11.0)
[2017-10-31 08:45] LABS: BICARBONATE 25.3 MEQ/L (21.0-32.0); BLOOD UREA NITROGEN 4 MG/DL (7-18); CALCIUM 8.7 MG/DL (8.5-10.1); CHLORIDE 103 MEQ/L (98-107); CREATININE 0.53 MG/DL (0.50-1.00); GLOMERULAR FILTRATION RATE 135 ML/MIN (>89); GLUCOSE,RANDOM 76 MG/DL (74-106); SODIUM (NA) 139 MEQ/L (136-145)
[2017-10-31] MEDS: SODIUM CHLORIDE 0.9% FLUSH 10 ML FLUSH IV FLUSH SCH ×2 (09:00→21:39)
[2017-10-31] MEDS: DOCUSATE SODIUM 50 MG/SENNA 8.6 MG TAB PO SCH (09:00)
[2017-10-31] MEDS: ONDANSETRON HCL 4 MG/2 ML VIAL IVP PRN ×2 (09:13→17:50)
[2017-10-31 10:51] LABS: HEMOGLOBIN A1C 5.5 % (4.3-6.0)
[2017-10-31] MEDS: LACTATED RINGER'S 1000 ML INJ 1,000 ML IV SCH ×2 (11:00→21:03)
[2017-10-31 12:00] VITALS: BP 125/69; PULSE 88; RESP 18; TEMP 99; O2SAT 97
[2017-10-31] MEDS: PCA - TOTAL MG MORPHINE DELIVERED PER SHIFT SCH (14:00)
[2017-10-31] MEDS: ENOXAPARIN SODIUM 30 MG/0.3 ML SYRINGE SQ SCH (14:21)
[2017-10-31 16:00] VITALS: BP 146/81; PULSE 82; RESP 18; TEMP 99.4; O2SAT 97
--- NOTE | 2017-10-31 16:57 | HHI.PR ---
cc: Dusty Díaz MD Subjective Subjective Notes DAILY PROGRESS NOTE FOR SURGICAL ATTENDING, DR. DUSTY DÍAZ Sitting in bed comfortable Objective Vitals/I&O Vital Signs Date Time Temp Pulse Resp B/P (MAP) Pulse Ox O2 Delivery O2 Flow Rate FiO2 10/31/17 08:00 98.4 78 18 120/59 (79) 98 10/30/17 12:30 Nasal Cannula 2 Labs Laboratory Tests Test 10/30/17 22:40 10/31/17 07:46 Vancomycin Level Trough 16.9 White Blood Count 15.9 Red Blood Count 3.96 Hemoglobin 11.2 Hematocrit 32.5 Mean Corpuscular Volume 82.2 Mean Corpuscular Hemoglobin 28.2 Mean Corpuscular Hemoglobin Concent 34.3 Red Cell Distribution Width 16.2 Platelet Count 752 Mean Platelet Volume 6.1 Neutrophils (%) (Auto) 83.2 Lymphocytes (%) (Auto) 9.4 Monocytes (%) (Auto) 6.1 Eosinophils (%) (Auto) 0.6 Basophils (%) (Auto) 0.7 Neutrophils # (Auto) 13.2 Lymphocytes # (Auto) 1.5 Monocytes # (Auto) 1.0 Eosinophils # (Auto) 0.1 Basophils # (Auto) 0.1 CBC Comment DIFF FINAL Differential Comment Blood Urea Nitrogen 4 Creatinine 0.53 Random Glucose 76 Calcium Level 8.7 Sodium Level 139 Potassium Level 3.4 Chloride Level 103 Carbon Dioxide Level 25.3 Anion Gap 11 Estimat Glomerular Filtration Rate 135 Rapid Plasma Reagin NON-REACTIVE Hepatitis A IgM Antibody NONREACTIVE Hepatitis B Surface Antigen NONREACTIVE Hepatitis B Core IgM Antibody NONREACTIVE Hepatitis C IgG Antibody NONREACTIVE HIV (1&2) Ab and P24 Ag, 4th Gener NONREACTIVE Date/Time Source Procedure Growth Status 10/30/17 10:00 Fluid Other Fungal Smear - Final NO FUNGAL ELEMENTS SEEN. Resulted 10/30/17 10:00 Fluid Other Fungal Culture Pending Resulted 10/30/17 12:01 Urine Catheterized Urine Urine Culture - Preliminary NO GROWTH IN 24 HOURS. Resulted 10/30/17 10:00 Wound Other Fungal Smear - Final NO FUNGAL ELEMENTS SEEN. Resulted 10/30/17 10:00 Wound Other Fungal Culture Pending Resulted Radiology Last Impressions Pelvis CT 10/29/17 1800 Signed Impressions: Service Date/Time: Sunday, October 29, 2017 21:00 - CONCLUSION: Complex Fluid collection in the pelvis with surrounding enhancement. This could represent postoperative hematoma/seroma. Infection certainly needs to be considered. In addition, there appears to be a complex cystic area in the more superior posterior right lateral aspect of this region potentially related to a right ovarian cystic process. Florencio Pedroza MD Abdomen/Pelvis CT 10/27/17 0000 Signed Impressions: Service Date/Time: Friday, October 27, 2017 08:27 - CONCLUSION: Postoperative fluid collections as above that has progressed in the interval. I don't see associated inflammatory changes or evidence that these are infected. These are very difficult position to access percutaneous. Repeat pelvic CT with contrast the bladder is pending. Bud Layne MD FACR Abdomen: Non-distended, Post-op tenderness (JAZMIN in place) Wound Wound : Wound Location: Abdomen Appearance: Clean & Dry Dressing: Dry (CATHI) A/P Assessment and Plan Status post irrigation debridement and removal of pelvic abscess with drain Doing well Continue antibiotics progressive activities and diet as tolerated I will follow at a distance please call if necessary Attending Statement NOTE FOR SURGICAL ATTENDING, DR. DUSTY DÍAZ I attest that I had a [id number] encounter with the patient on the same day, and personally performed and documented my assessment and findings in the medical record. The following services were provided during this hospital visit: Chart data review, vital sign assessments/reviewing monitor data Review of consultations notes if present. Medication orders/review and/or management Ordering and/or reviewing lab tests Ordering and/or interpreting/reviewing x-rays and/or diagnostic studies Care of the patient and discussion of the patient with the care team Documentation time To help prompt me to consider important information that might be impacting today's encounter and assessment, Information from prior notes written by myself or my colleagues may have been "brought forward/copy and pasted" into today's note. Dusty Díaz MD Oct 31, 2017 16:57
--- NOTE | 2017-10-31 17:42 | PD.PN.STU ---
Subjective Remarks Examined pt while laying in bed with family at bedside. C/o of "feeling very gassy but can't fart", bloating, cramping, nausea, and acid reflux. Reports feeling afraid that if she forces a flatus that she might "blow a suture". Also still in discomfort and pain, unable to move in or out of bed. Denies GARCIA, dizziness, dyspnea, SOB, CP, leg pain, fever, chills. Still has decreased appetite, received zofran this afternoon for her nausea. Objective Vitals Vital Signs Date Time Temp Pulse Resp B/P (MAP) Pulse Ox O2 Delivery O2 Flow Rate FiO2 10/31/17 08:00 98.4 78 18 120/59 (79) 98 10/31/17 04:00 98.5 78 18 108/59 (75) 97 10/31/17 02:09 19 10/31/17 00:00 99.3 87 18 127/68 (87) 96 10/30/17 20:00 97.8 67 18 127/60 (82) 97 I/O 10/30/17 10/30/17 10/30/17 10/31/17 10/31/17 10/31/17 07:00 15:00 23:00 07:00 15:00 23:00 Intake Total 1412 ml 2250 ml Output Total 875 ml 40 ml 1600 ml 4745 ml Balance 1412 ml 1375 ml -40 ml -1600 ml -4745 ml IV Total 1412 ml 1700 ml Packed Cells 400 ml Blood Product IV Normal Saline Flush 150 ml Output Urine Total 775 ml 1600 ml 4725 ml Drainage Total 50 ml 40 ml 20 ml Estimated Blood Loss 50 ml # Voids 2 Result Diagram: 10/31/17 0746 10/31/17 0746 Imaging Last Impressions Pelvis CT 10/29/17 1800 Signed Impressions: Service Date/Time: Sunday, October 29, 2017 21:00 - CONCLUSION: Complex Fluid collection in the pelvis with surrounding enhancement. This could represent postoperative hematoma/seroma. Infection certainly needs to be considered. In addition, there appears to be a complex cystic area in the more superior posterior right lateral aspect of this region potentially related to a right ovarian cystic process. Florencio Pedroza MD Abdomen/Pelvis CT 10/27/17 0000 Signed Impressions: Service Date/Time: Friday, October 27, 2017 08:27 - CONCLUSION: Postoperative fluid collections as above that has progressed in the interval. I don't see associated inflammatory changes or evidence that these are infected. These are very difficult position to access percutaneous. Repeat pelvic CT with contrast the bladder is pending. Bud Layne MD FACR Objective Remarks GENERAL: WD thin pleasant female who appeared uncomfortable in bed but was in NAD SKIN: generalized pallor that is improved from 10/30/2017 .Warm and dry. HEAD: Normocephalic. EYES: No scleral icterus. No injection or drainage. CARDIOVASCULAR: Regular rate and rhythm without murmurs, gallops, or rubs. RESPIRATORY: Breath sounds equal bilaterally. No accessory muscle use. GASTROINTESTINAL: Abdomen soft, mildly tender, mildly distended, no rebound, no guarding. LLQ JAZMIN drain with about 5ml serosanguinous fluid. lower abdominal wound vacc bandage with no enlargement of bandage bleed from 10/30/2017. Skin around bandage ecchymotic but nonerythematous. MUSCULOSKELETAL: No cyanosis, or edema. Able to move all 4 extremities. Mild nonpitting bilateral lower extremity edema. Negative Hamida's sign. lower extremity pulses 2+ bilaterally Procedures POD#1 exploratory laparotomy, pelvic abscess debridement/washout, right ovarian reconstruction POD#15 Laparoscopic-assisted abdominal hysterectomy, L salpingoopherectomy, R salpingectomy. Medications and IVs Current Medications Medications (Trade) Dose Ordered Sig/Rashida Route Start Time Stop Time Status Last Admin (Percocet 5-325 Mg) 1 tab Q4H PRN PO 10/27/17 08:30 10/29/17 06:28 (Percocet 5-325 Mg) 2 tab Q4H PRN PO 10/27/17 08:30 10/31/17 14:21 (Dilaudid Pf Inj) 1 mg Q4H PRN IV PUSH 10/27/17 09:00 10/30/17 13:14 (Benadryl) 25 mg Q6H PRN PO 10/27/17 08:30 (Zofran Inj) 4 mg Q6H PRN IVP 10/27/17 08:30 10/31/17 09:13 Pharmacy Profile Note 0 ml @ 0 mls/hr UNSCH OTHER 10/27/17 10:00 Piperacillin Sod/ Tazobactam Sod 50 ml @ 100 mls/hr Q6H IV 10/27/17 12:00 10/31/17 12:58 (Tylenol) 650 mg Q4H PRN PO 10/27/17 21:00 10/30/17 06:20 (Motrin) 600 mg Q6H PRN PO 10/28/17 17:00 10/29/17 16:58 (Mary-Colace) 1 tab BID PO 10/28/17 21:00 10/29/17 08:36 (Zofran Odt) 4 mg Q6H PRN PO 10/28/17 17:00 Vancomycin HCl 1000 mg/Sodium Chloride 250 ml @ 250 mls/hr Q8H IV 10/29/17 11:00 10/31/17 14:20 Lactated Ringer's 1,000 ml @ 125 mls/hr Q8H IV 10/30/17 12:00 10/31/17 11:00 (NS Flush) 2 ml UNSCH PRN IV FLUSH 10/30/17 11:15 (NS Flush) 2 ml BID IV FLUSH 10/30/17 11:15 10/30/17 11:20 (Lovenox Inj) 30 mg Q24H SQ 10/31/17 13:00 10/31/17 14:21 A/P Assessment and Plan 1. Pelvic abscess pelvic tissue sample, urine, peritoneal fluid cultures are pending cont IVF and current antibiotic regimen (IV vanc/zosyn) [employer] dc'd, on oral pain meds SCD in place for DVT prophylaxis 30mg lovenox given at 1330 today on full liquid diet DC crawford today cont to monitor JAZMIN drain output 2. Anemia- Hb 7-> Hb 11.2 cont to monitor labs and vitals 3. Nausea On zoRupa Holbrook M3 Oct 31, 2017 17:42
[2017-10-31] MEDS ORDERED: RANITIDINE HCL SYRUP 150 MG/10 ML UDC PO PRN (18:30)
[2017-10-31] MEDS ORDERED: SIMETHICONE 80 MG CHEWABLE TAB CHEW PRN (18:30)
[2017-10-31 20:00] VITALS: BP 139/72; PULSE 78; RESP 18; TEMP 99.7; O2SAT 97
[2017-10-31] MEDS: HYDROmorphone HCL PF 2 MG/ML VIAL IV PUSH PRN (21:39)
[2017-11-01] VITALS: BP 109/55; PULSE 85; RESP 18; TEMP 98.6; O2SAT 95
[2017-11-01] MEDS: VANCOMYCIN 1,000 MG/NS 250 ML IV SCH ×4 (03:15→10:34)
[2017-11-01] MEDS: oxyCODONE/ACETAMINOPHEN 5 MG/325 MG TAB PO PRN ×4 (03:20→22:29)
[2017-11-01 04:00] VITALS: BP 112/51; PULSE 72; RESP 18; TEMP 98.1; O2SAT 91
[2017-11-01] MEDS: LACTATED RINGER'S 1000 ML INJ 1,000 ML IV SCH ×2 (06:11→23:43)
[2017-11-01] MEDS: PIPERACIL-TAZO 3.375 GM PREMIX 50 ML IV SCH ×3 (06:11→16:57)
[2017-11-01] MEDS: SODIUM CHLORIDE 0.9% FLUSH 10 ML FLUSH IV FLUSH SCH ×2 (07:37→21:56)
[2017-11-01 08:00] VITALS: BP 138/67; PULSE 53; RESP 18; TEMP 98.2; O2SAT 98
[2017-11-01 09:08] LABS: AUTOMATED NEUTROPHIL # 9.6 TH/MM3 (1.8-7.7); BASOPHIL # 0.1 TH/MM3 (0-0.2); BASOPHIL % 0.7 % (0.0-2.0); EOSINOPHIL # 0.9 TH/MM3 (0-0.4); EOSINOPHIL % 6.8 % (0.0-4.0); HEMATOCRIT 27.1 % (35.0-46.0); HEMOGLOBIN 9.9 GM/DL (11.6-15.3); LYMPH % 11.3 % (9.0-44.0); LYMPHOCYTE # 1.5 TH/MM3 (1.0-4.8); MEAN CELL VOLUME 82.7 FL (80.0-100.0); MEAN CORPUSCULAR HEMOGLOBIN 30.2 PG (27.0-34.0); MEAN CORPUSCULAR HGB CONC 36.6 % (32.0-36.0); MEAN PLATELET VOLUME 6.1 FL (7.0-11.0); MONO % 7.1 % (0.0-8.0); MONOCYTE # 0.9 TH/MM3 (0-0.9); NEUT % 74.1 % (16.0-70.0); PLATELET COUNT 539 TH/MM3 (150-450); RED BLOOD COUNT 3.28 MIL/MM3 (4.00-5.30); RED CELL DISTRIBUTION WIDTH 15.8 % (11.6-17.2)
--- NOTE | 2017-11-01 09:13 | PD.PN.STU ---
Subjective Remarks Pt seen in lying in bed today with mother at bedside. Pt reports improved bloating, abdominal cramping, and nausea. Reports activity to and from the bed and bedside urinal, flatus, and urination. Denies BM, GARCIA, CP, dyspnea, fever, chills, leg pain. Pt has been consuming smoothies and juices, has improved appetite and requesting possible advance in diet. Objective Vitals Vital Signs Date Time Temp Pulse Resp B/P (MAP) Pulse Ox O2 Delivery O2 Flow Rate FiO2 11/01/17 08:00 98.2 53 18 138/67 (90) 98 11/01/17 04:00 98.1 72 18 112/51 (71) 91 11/01/17 00:00 98.6 85 18 109/55 (73) 95 10/31/17 20:00 99.7 78 18 139/72 (94) 97 10/31/17 16:00 99.4 82 18 146/81 (102) 97 10/31/17 12:00 99.0 88 18 125/69 (87) 97 I/O 10/31/17 10/31/17 10/31/17 11/01/17 11/01/17 11/01/17 07:00 15:00 23:00 07:00 15:00 23:00 Output Total 1600 ml 4745 ml 30 ml Balance -1600 ml -4745 ml -30 ml Output Urine Total 1600 ml 4725 ml Drainage Total 20 ml 30 ml # Voids 1 2 Result Diagram: 10/31/17 0746 10/31/17 0746 Other Results Laboratory Tests Test 10/30/17 09:34 10/30/17 10:00 10/30/17 22:40 10/31/17 07:46 Red Blood Count 2.40 MIL/MM3 (4.00-5.30) 3.96 MIL/MM3 (4.00-5.30) Hemoglobin 7.0 GM/DL (11.6-15.3) 11.2 GM/DL (11.6-15.3) Hematocrit 19.8 % (35.0-46.0) 32.5 % (35.0-46.0) Platelet Count 537 TH/MM3 (150-450) 752 TH/MM3 (150-450) Mean Platelet Volume 6.0 FL (7.0-11.0) 6.1 FL (7.0-11.0) Blood Urea Nitrogen 3 MG/DL (7-18) 4 MG/DL (7-18) Creatinine 0.43 MG/DL (0.50-1.00) Calcium Level 8.0 MG/DL (8.5-10.1) Chloride Level 109 MEQ/L (98-107) Urine Ketones 40 mg/dL (NEG) Urine Bacteria RARE /hpf (NONE) Vancomycin Level Trough 16.9 MCG/ML (5.0-10.0) White Blood Count 15.9 TH/MM3 (4.0-11.0) Neutrophils (%) (Auto) 83.2 % (16.0-70.0) Neutrophils # (Auto) 13.2 TH/MM3 (1.8-7.7) Monocytes # (Auto) 1.0 TH/MM3 (0-0.9) Potassium Level 3.4 MEQ/L (3.5-5.1) Test 11/01/17 08:52 White Blood Count 13.0 TH/MM3 (4.0-11.0) Red Blood Count 3.28 MIL/MM3 (4.00-5.30) Hemoglobin 9.9 GM/DL (11.6-15.3) Hematocrit 27.1 % (35.0-46.0) Mean Corpuscular Hemoglobin Concent 36.6 % (32.0-36.0) Platelet Count 539 TH/MM3 (150-450) Mean Platelet Volume 6.1 FL (7.0-11.0) Neutrophils (%) (Auto) 74.1 % (16.0-70.0) Eosinophils (%) (Auto) 6.8 % (0.0-4.0) Neutrophils # (Auto) 9.6 TH/MM3 (1.8-7.7) Eosinophils # (Auto) 0.9 TH/MM3 (0-0.4) Imaging Last Impressions Pelvis CT 10/29/17 1800 Signed Impressions: Service Date/Time: Sunday, October 29, 2017 21:00 - CONCLUSION: Complex Fluid collection in the pelvis with surrounding enhancement. This could represent postoperative hematoma/seroma. Infection certainly needs to be considered. In addition, there appears to be a complex cystic area in the more superior posterior right lateral aspect of this region potentially related to a right ovarian cystic process. Florencio Pedroza MD Abdomen/Pelvis CT 10/27/17 0000 Signed Impressions: Service Date/Time: Friday, October 27, 2017 08:27 - CONCLUSION: Postoperative fluid collections as above that has progressed in the interval. I don't see associated inflammatory changes or evidence that these are infected. These are very difficult position to access percutaneous. Repeat pelvic CT with contrast the bladder is pending. Bud Layne MD FACR Objective Remarks GENERAL: WD thin pleasant female who was in NAD SKIN: Warm and dry. HEAD: Normocephalic. EYES: No scleral icterus. No injection or drainage. NECK: Supple, trachea midline. No JVD or lymphadenopathy. CARDIOVASCULAR: Regular rate and rhythm without murmurs, gallops, or rubs. RESPIRATORY: Breath sounds equal bilaterally. No accessory muscle use. GASTROINTESTINAL: Abdomen soft,mildly tender, nondistended. LLQ JAZMIN drain in place with about 5ml serosanguinous fluid. lower abdominal wound vacc in place. Skin around bandage ecchymotic, nonerythematous MUSCULOSKELETAL: SCD's in place. No cyanosis, or edema. Neg Hamida's. Able to move all extremities wel Procedures POD#2 ex lap, pelvic debridement/washout, R ovarian reconstruction POD#16 TAB, L salpingoopherectomy, R salpingectomy Medications and IVs Current Medications Medications (Trade) Dose Ordered Sig/Rashida Route Start Time Stop Time Status Last Admin (Percocet 5-325 Mg) 1 tab Q4H PRN PO 10/27/17 08:30 10/29/17 06:28 (Percocet 5-325 Mg) 2 tab Q4H PRN PO 10/27/17 08:30 11/01/17 08:09 (Dilaudid Pf Inj) 1 mg Q4H PRN IV PUSH 10/27/17 09:00 10/31/17 21:39 (Benadryl) 25 mg Q6H PRN PO 10/27/17 08:30 (Zofran Inj) 4 mg Q6H PRN IVP 10/27/17 08:30 10/31/17 17:50 Pharmacy Profile Note 0 ml @ 0 mls/hr UNSCH OTHER 10/27/17 10:00 Piperacillin Sod/ Tazobactam Sod 50 ml @ 100 mls/hr Q6H IV 10/27/17 12:00 11/01/17 06:11 (Tylenol) 650 mg Q4H PRN PO 10/27/17 21:00 10/30/17 06:20 (Motrin) 600 mg Q6H PRN PO 10/28/17 17:00 10/29/17 16:58 (Zofran Odt) 4 mg Q6H PRN PO 10/28/17 17:00 Vancomycin HCl 1000 mg/Sodium Chloride 250 ml @ 250 mls/hr Q8H IV 10/29/17 11:00 11/01/17 03:15 Lactated Ringer's 1,000 ml @ 75 mls/hr [id number] IV 10/30/17 12:00 11/01/17 06:11 (NS Flush) 2 ml UNSCH PRN IV FLUSH 10/30/17 11:15 (NS Flush) 2 ml BID IV FLUSH 10/30/17 11:15 10/31/17 21:39 (Lovenox Inj) 30 mg Q24H SQ 10/31/17 13:00 10/31/17 14:21 (Mary-Colace) 1 tab BID PRN PO 10/31/17 18:30 (Mylicon Chew) 80 mg PCHS PRN CHEW 10/31/17 18:30 10/31/17 21:35 (Zantac Liq) 150 mg Q12HR PRN PO 10/31/17 18:30 10/31/17 21:35 A/P Assessment and Plan 1. Pelvic abscess pelvic tissue sample, urine, peritoneal fluid cultures are pending cont IVF and current antibiotic regimen (IV vanc/zosyn) oral pain meds SCD in place and 30mg lovenox for DVT prophylaxis on full liquid diet, poss advance cont to monitor JAZMIN drain output 2. Anemia- Hb 7-> Hb 11.2 cont to monitor labs and vitals 3. Nausea- improved zofran prn Rupa Grissom M3 Nov 01, 2017 09:13
--- NOTE | 2017-11-01 09:46 | HHI.PR ---
Subjective Remarks POD#2 s/p exploratory laparotomy, debridement/washout of pelvic abscess, repair of right ovary, rigid sigmoidoscopy (intraop Gen Surg consult) for postop fever/ pelvic abscess POD#16 s/p LAVH, LSO, R salpingectomy for enlarged fibroid uterus, menorrhagia, endometriosis Sitting up in bed, looks better this morning than last evening, better color to face, symptoms of bloating and pain resolved yesterday evening after oral zantac and simethicone; now passing flatus without issue, has voided without pain and no bleeding on pad; getting hungry, requesting soft diet, mashed potatoes specifically; mother just left to get her smoothie and soup; afebrile overnight Objective Vital Signs Vital Signs Date Time Temp Pulse Resp B/P (MAP) Pulse Ox O2 Delivery O2 Flow Rate FiO2 11/01/17 08:00 98.2 53 18 138/67 (90) 98 11/01/17 04:00 98.1 72 18 112/51 (71) 91 11/01/17 00:00 98.6 85 18 109/55 (73) 95 10/31/17 20:00 99.7 78 18 139/72 (94) 97 10/31/17 16:00 99.4 82 18 146/81 (102) 97 10/31/17 12:00 99.0 88 18 125/69 (87) 97 I/O 18 18 18 18 18 18 07:00 15:00 23:00 07:00 15:00 23:00 Output Total 1600 ml 4745 ml 30 ml Balance -1600 ml -4745 ml -30 ml Output Urine Total 1600 ml 4725 ml Drainage Total 20 ml 30 ml # Voids 1 2 Result Diagram: 11/01/17 0852 10/31/17 0746 Objective Remarks Chest is clear, regular rate and rhythm. Lungs CTA anteriorly & laterally; did not ask pt to sit forward Abdomen is soft and non-distended. Good BS all 4 quadrants; Bruising around incision as expected; drain with minimal light serosanginous fluid (approx 50 cc total drainage in past 24h); skin site c/d/i; bandage removed over pfannenstiel type abdominal incision, dried drainage in small area both left and right mid-sections; no active drainage, no warmth; landy in place : pad dry. Ext no CCE. SCDs on. A/P Assessment and Plan Readmit on Monday10/27/17 for fever, concern for sepsis, now: POD#2 s/p ex-lap, washout & debridement of pelvic abscess, repair of R ovary, rigid sigmoidoscopy (Gen Surg consult intraop) POD#16 s/p LAVH, LSO, R salpingectomy for menorrhagia, chronic pelvic pain, endometriosis, fibroids 1) postop day #2/#16 large pelvic abscess of unclear origin source debrided/ washed out in OR 10/30/18 with cultures from wound and peritoneal fluid both showing + E.coli, sensitive to Zosyn; continue current antibiotic regimen for now, consider transition to po based on collaboration with infectious disease recommendations; has been on x 5 total days, today starts day 6 of therapy while inpatient - LLQ drain with approx 90 mL output in first 24h postop; last 24h postop approx 50 mL output, d/w pt cannot pull until 25 cc or less daily - SCDs for ppx, started ppx lovenox 10/31/18 (POD#1); due to low weight/BMI ordered 30mg - postop pelvic abscess: unclear source, large ruptured cyst on R ovary, able to debride/remove and salvage ovary; good blood supply; colon evaluation intraop without abnormality; vaginal cuff intact with healthy tissue; cultures showing heavy growth of E. coli - anemia: pt transfused 2 units intraoperatively, preop Hgb 7.0; initially postop 11.2, suspected lab error, today 9.9, continue daily monitoring - due to unexpected postop course ordered infection screen & A1c - infectious disease involved, now that cultures resulted from pelvic abscess will call later today to discuss length of antibiotic use/possibility of need for PICC line or home nursing care 4) dispo: not meeting criteria; anticipate at least another 3d if not longer Suni Loyd MD Nov 01, 2017 09:46
[2017-11-01 12:00] VITALS: BP 121/62; PULSE 59; RESP 18; TEMP 98.5; O2SAT 97
[2017-11-01] MEDS: IBUPROFEN 600 MG TAB PO SCH ×3 (12:00→21:53)
[2017-11-01] MEDS: ENOXAPARIN SODIUM 30 MG/0.3 ML SYRINGE SQ SCH (12:03)
[2017-11-01 16:00] VITALS: BP 122/57; PULSE 83; RESP 18; TEMP 98.5; O2SAT 98
[2017-11-01] MEDS: ONDANSETRON HCL 4 MG/2 ML VIAL IVP PRN (16:57)
[2017-11-01 21:00] VITALS: BP 121/64; PULSE 68; RESP 16; TEMP 98.1; O2SAT 98
[2017-11-01] MEDS: DOCUSATE SODIUM 50 MG/SENNA 8.6 MG TAB PO PRN (21:52)
[2017-11-02] VITALS: BP 120/59; PULSE 67; RESP 16; TEMP 97.6; O2SAT 99
[2017-11-02] MEDS: PIPERACIL-TAZO 3.375 GM PREMIX 50 ML IV SCH ×4 (00:16→17:14)
[2017-11-02] MEDS ORDERED: PHARMACY ORDERED LAB ONE (02:45)
[2017-11-02 05:50] VITALS: BP 115/60; PULSE 60; RESP 16; TEMP 97; O2SAT 99
[2017-11-02] MEDS: IBUPROFEN 600 MG TAB PO SCH ×4 (05:56→22:20)
[2017-11-02] MEDS: LACTATED RINGER'S 1000 ML INJ 1,000 ML IV SCH (05:57)
[2017-11-02 08:00] VITALS: BP 117/65; PULSE 65; RESP 18; TEMP 98.1; O2SAT 97
[2017-11-02] MEDS: SODIUM CHLORIDE 0.9% FLUSH 10 ML FLUSH IV FLUSH SCH ×2 (08:27→21:00)
--- NOTE | 2017-11-02 08:46 | HHI.PR ---
Subjective Remarks POD#3 s/p exploratory laparotomy, debridement/washout of pelvic abscess, repair of right ovary, rigid sigmoidoscopy (intraop Gen Surg consult) for postop fever/ pelvic abscess POD#17 s/p LAVH, LSO, R salpingectomy for enlarged fibroid uterus, menorrhagia, endometriosis Sitting up in bed, improving daily, better color to face, yesterday had 2 BMs after eating regular diet and walking around floor with her mother to assist; had another BM early this morning; no diarrhea, well formed, no pain, no bleeding; pain under adequate control with scheduled ibuprofen and prn Percocet ; afebrile overnight, no nausea no bloating no reflux in past 24h Objective Vital Signs Vital Signs Date Time Temp Pulse Resp B/P (MAP) Pulse Ox O2 Delivery O2 Flow Rate FiO2 18 08:00 98.1 65 18 117/65 (82) 97 11/02/17 05:50 97.0 60 16 115/60 (78) 99 11/02/17 00:00 97.6 67 16 120/59 (79) 99 11/01/17 21:00 98.1 68 16 121/64 (83) 98 18 16:00 98.5 83 18 122/57 (78) 98 11/01/17 12:00 98.5 59 18 121/62 (81) 97 I/O 11/01/18 18 18 18 18 18 07:00 15:00 23:00 07:00 15:00 23:00 Intake Total 300 ml 1050 ml 1200 ml Output Total 30 ml 10 ml 20 ml Balance 270 ml 1040 ml 1200 ml -20 ml Intake Oral 1000 ml 1200 ml IV Total 300 ml 50 ml Drainage Total 30 ml 10 ml 20 ml # Voids 2 5 2 # Bowel Movements 2 0 Result Diagram: 18 0852 18 0746 Objective Remarks Chest is clear, regular rate and rhythm. Lungs CTA anteriorly & laterally & posteriorly, pt able to lean forward without issue Abdomen is soft and non-distended. Good BS all 4 quadrants; Bruising around incision as expected, not expanding; drain with minimal light serosanginous fluid (POD#0 approx 90cc, POD#1 approx 50 cc, POD#2 approx 30 cc); skin site c/d /i; ABD pad over pfannenstiel type abdominal incision changed, scant dried blood in few spots; landy intact; if still inpatient on Monday11/06/17 will plan removal at bedside and steri-strips at that time; no active drainage, no warmth : pad dry. Ext no CCE. SCDs on. A/P Assessment and Plan Readmit on Monday10/27/17 for fever, concern for sepsis, found to have large pelvic abscess, now: POD#3 s/p ex-lap, washout & debridement of pelvic abscess, repair of R ovary, rigid sigmoidoscopy (Gen Surg consult intraop) POD#17 s/p LAVH, LSO, R salpingectomy for menorrhagia, chronic pelvic pain, endometriosis, fibroids 1) postop day #3/#17 large pelvic abscess debrided/washed out in OR 10/30/18 with cultures from wound and peritoneal fluid both showing + E.coli, sensitive to Zosyn; continue current antibiotic until 11/03/17; stop orders written, spoke with ID this morning, Dr. Miller, who recommends transition to oral Augmentin 500mg TID x 10d; order written to start 18 in afternoon - LLQ drain with approx 90 mL POD#0; approx 50 mL output POD#1, 30 mL output on POD#2, d/w pt cannot pull until 25 cc or less daily - SCDs for ppx, started ppx lovenox 18 (POD#1); due to low weight/BMI ordered 30mg dosing - postop pelvic abscess: unclear source, large ruptured cyst on R ovary, able to debride/remove and salvage ovary; good blood supply; colon evaluation intraop without abnormality; vaginal cuff intact with healthy tissue; cultures showing heavy growth of E. coli, on appropriate antibiotics based on sensitivities - anemia: pt transfused 2 units intraoperatively, preop Hgb 7.0; initially postop 11.2, suspected lab error, yesterday 9.9, AM labs pending - due to unexpected postop course ordered broad infection screen & A1c >> all negative/normal 4) dispo: not meeting criteria; anticipate keeping through weekend, if able to d /c drain, transition to po antibiotics, and remain afebrile/asymptomatic x 48h after that possibly discharge at that time, earliest anticipated date Monday Suni Loyd MD Nov 02, 2017 08:46
[2017-11-02 09:44] LABS: AUTOMATED NEUTROPHIL # 6.1 TH/MM3 (1.8-7.7); BASOPHIL # 0.1 TH/MM3 (0-0.2); BASOPHIL % 0.8 % (0.0-2.0); EOSINOPHIL # 1.2 TH/MM3 (0-0.4); HEMOGLOBIN 10.8 GM/DL (11.6-15.3); LYMPH % 16.3 % (9.0-44.0); LYMPHOCYTE # 1.6 TH/MM3 (1.0-4.8); MEAN CELL VOLUME 83.4 FL (80.0-100.0); MEAN CORPUSCULAR HEMOGLOBIN 28.2 PG (27.0-34.0); MEAN CORPUSCULAR HGB CONC 33.8 % (32.0-36.0); MEAN PLATELET VOLUME 6.4 FL (7.0-11.0); MONO % 7.4 % (0.0-8.0); MONOCYTE # 0.7 TH/MM3 (0-0.9); NEUT % 63.5 % (16.0-70.0); PLATELET COUNT 660 TH/MM3 (150-450); RED BLOOD COUNT 3.84 MIL/MM3 (4.00-5.30); WHITE BLOOD COUNT 9.6 TH/MM3 (4.0-11.0)
[2017-11-02 10:04] LABS: CREATININE 0.49 MG/DL (0.50-1.00)
[2017-11-02] MEDS: ENOXAPARIN SODIUM 30 MG/0.3 ML SYRINGE SQ SCH (11:59)
[2017-11-02 12:00] VITALS: BP 125/70; PULSE 53; RESP 18; TEMP 98.2; O2SAT 99
--- NOTE | 2017-11-02 12:18 | HHI.PR ---
Addendum to Inpatient Note Additional Information dw Evert Pruett Nl WBC E.coli in fluid OK to switch to Augmentin 500 mg po tid to complete 10 days of abx from post op once ready for d/c Gricelda Miller MD Nov 02, 2017 12:18
[2017-11-02 16:00] VITALS: BP 113/57; PULSE 82; RESP 18; TEMP 98.2; O2SAT 98
[2017-11-02 20:00] VITALS: BP 118/56; PULSE 80; RESP 20; TEMP 98.4; O2SAT 96
[2017-11-02] MEDS: oxyCODONE/ACETAMINOPHEN 5 MG/325 MG TAB PO PRN (22:20)
[2017-11-03] VITALS: BP 118/64; PULSE 74; RESP 18; TEMP 98; O2SAT 97
[2017-11-03] MEDS: PIPERACIL-TAZO 3.375 GM PREMIX 50 ML IV SCH ×2 (00:24→05:44)
[2017-11-03 04:00] VITALS: BP 121/72; PULSE 65; RESP 18; TEMP 98; O2SAT 96
[2017-11-03] MEDS: IBUPROFEN 600 MG TAB PO SCH ×4 (05:45→22:36)
--- NOTE | 2017-11-03 07:36 | HHI.PR ---
Subjective Remarks Doing better everyday, Having good bowel movements and tolerating diet No N/V, No chest pain or SOB Ambulating well Objective Vital Signs Date Time Temp Pulse Resp B/P (MAP) Pulse Ox O2 Delivery O2 Flow Rate FiO2 11/03/17 04:00 98.0 65 18 121/72 (88) 96 11/03/17 00:00 98.0 74 18 118/64 (82) 97 11/02/17 20:00 98.4 80 20 118/56 (76) 96 11/02/17 18:32 16 11/02/17 16:00 98.2 82 18 113/57 (75) 98 11/02/17 12:00 98.2 53 18 125/70 (88) 99 11/02/17 08:00 98.1 65 18 117/65 (82) 97 I/O 11/02/17 11/02/17 11/02/17 11/03/17 11/03/17 11/03/17 07:00 15:00 23:00 07:00 15:00 23:00 Intake Total 1200 ml 880 ml Output Total 20 ml Balance 1200 ml -20 ml 880 ml Intake Oral 1200 ml 780 ml IV Total 100 ml Drainage Total 20 ml # Voids 2 4 # Bowel Movements 0 0 Result Diagram: 11/02/17 0811 11/02/17 0811 Other Results Chest is clear CV RRR Abd is soft and scaffoid, good bowel sounds. Incision clean and dry, bruising is improving. Ext no CCE Assessment and Plan Assessment and Plan 1. POD #4 2. Pelvic abscess improving well. Will d/c IV antibiotics and start augmentin. Will d/c lovenox now as she is ambulating and starting augmentin. Plan to keep her over the weekend. Samir Hernadez MD Nov 03, 2017 07:36
[2017-11-03 07:41] LABS: AUTOMATED NEUTROPHIL # 4.5 TH/MM3 (1.8-7.7); BASOPHIL # 0.1 TH/MM3 (0-0.2); BASOPHIL % 1.4 % (0.0-2.0); EOSINOPHIL # 1.2 TH/MM3 (0-0.4); EOSINOPHIL % 14.9 % (0.0-4.0); HEMATOCRIT 31.4 % (35.0-46.0); HEMOGLOBIN 10.6 GM/DL (11.6-15.3); LYMPH % 19.4 % (9.0-44.0); LYMPHOCYTE # 1.5 TH/MM3 (1.0-4.8); MEAN CORPUSCULAR HGB CONC 33.7 % (32.0-36.0); MEAN PLATELET VOLUME 6.2 FL (7.0-11.0); MONO % 7.8 % (0.0-8.0); MONOCYTE # 0.6 TH/MM3 (0-0.9); NEUT % 56.5 % (16.0-70.0); PLATELET COUNT 656 TH/MM3 (150-450); RED BLOOD COUNT 3.78 MIL/MM3 (4.00-5.30); RED CELL DISTRIBUTION WIDTH 16.2 % (11.6-17.2)
[2017-11-03] MEDS: SODIUM CHLORIDE 0.9% FLUSH 10 ML FLUSH IV FLUSH SCH ×2 (08:29→22:40)
[2017-11-03 08:41] VITALS: BP 126/58; PULSE 58; RESP 18; TEMP 98; O2SAT 97
[2017-11-03 12:08] VITALS: BP 118/69; PULSE 60; RESP 18; TEMP 98.6; O2SAT 98
[2017-11-03] MEDS: AMOXICILLIN/CLAVULANATE K 500 MG TAB PO SCH ×2 (13:10→22:36)
[2017-11-03 16:45] VITALS: BP 127/69; PULSE 72; RESP 18; TEMP 98.3; O2SAT 99
[2017-11-03 21:01] VITALS: BP 128/63; PULSE 70; RESP 18; TEMP 98.7; O2SAT 99
[2017-11-03] MEDS: oxyCODONE/ACETAMINOPHEN 5 MG/325 MG TAB PO PRN (22:37)
[2017-11-04 00:44] VITALS: BP 123/70; PULSE 69; RESP 18; TEMP 98.2; O2SAT 98
[2017-11-04 05:07] VITALS: BP 126/64; PULSE 65; RESP 18; TEMP 98; O2SAT 98
[2017-11-04] MEDS: AMOXICILLIN/CLAVULANATE K 500 MG TAB PO SCH ×3 (05:41→22:21)
[2017-11-04] MEDS: IBUPROFEN 600 MG TAB PO SCH ×4 (05:41→22:21)
--- NOTE | 2017-11-04 07:51 | HHI.PR ---
Subjective Remarks POD#5 s/p exploratory laparotomy, debridement/washout of pelvic abscess, repair of right ovary, rigid sigmoidoscopy (intraop Gen Surg consult) for postop fever/ pelvic abscess POD#119 s/p LAVH, LSO, R salpingectomy for enlarged fibroid uterus, menorrhagia , endometriosis Doing well, tolerating diet, no nausea or vomiting, pain controlled, voiding, BMs, and ambulating without difficulty. Objective Vital Signs Vital Signs Date Time Temp Pulse Resp B/P (MAP) Pulse Ox O2 Delivery O2 Flow Rate FiO2 11/04/17 05:07 98.0 65 18 126/64 (84) 98 11/04/17 00:44 98.2 69 18 123/70 (87) 98 11/03/17 21:01 98.7 70 18 128/63 (84) 99 11/03/17 17:28 16 11/03/17 16:45 98.3 72 18 127/69 (88) 99 11/03/17 12:08 98.6 60 18 118/69 (85) 98 11/03/17 08:41 98.0 58 18 126/58 (80) 97 I/O 18 11/03/17 11/03/17 11/04/17 11/04/17 11/04/17 07:00 15:00 23:00 07:00 15:00 23:00 Intake Total 880 ml Output Total 28 ml 10 ml Balance 880 ml -28 ml -10 ml Intake Oral 780 ml IV Total 100 ml Drainage Total 28 ml 10 ml # Voids 4 # Bowel Movements 0 Result Diagram: 11/03/17 0632 11/02/17 0811 Objective Remarks Chest is clear, regular rate and rhythm. Lungs CTA anteriorly & laterally & posteriorly, pt able to lean forward without issue Abdomen is soft and non-distended. Good BS all 4 quadrants; Bruising around incision as expected, drain with minimal light serosanginous fluid, skin site c/ d/i; removed suture and drain without difficulty at bedside, applied steri strips. landy intact; : pad dry. Ext no CCE. SCDs on. A/P Assessment and Plan Readmit on Monday10/27/17 for fever, concern for sepsis, found to have large pelvic abscess, now: POD#3 s/p ex-lap, washout & debridement of pelvic abscess, repair of R ovary, rigid sigmoidoscopy (Gen Surg consult intraop) POD#17 s/p LAVH, LSO, R salpingectomy for menorrhagia, chronic pelvic pain, endometriosis, fibroids 1) postop day #5/#19 large pelvic abscess debrided/washed out in OR 4/18 with cultures from wound and peritoneal fluid both showing + E.coli, sensitive to Zosyn -JAZMIN drain with around 25 cc 48 hours now, removed this morning. Continue p.o. Augmentin (Day 08/26) as recommended by ID. Blood work stable and normalized 48 hours, afebrile. Likely discharge Monday. Miguel Taylor MD Nov 04, 2017 07:51
[2017-11-04 08:13] VITALS: BP 125/72; PULSE 59; RESP 18; TEMP 98; O2SAT 99
[2017-11-04 09:24] LABS: BASOPHIL # 0.1 TH/MM3 (0-0.2); BASOPHIL % 1.4 % (0.0-2.0); EOSINOPHIL # 1.1 TH/MM3 (0-0.4); EOSINOPHIL % 14.3 % (0.0-4.0); HEMATOCRIT 36.2 % (35.0-46.0); HEMOGLOBIN 12.1 GM/DL (11.6-15.3); LYMPHOCYTE # 1.6 TH/MM3 (1.0-4.8); MEAN CELL VOLUME 83.6 FL (80.0-100.0); MEAN CORPUSCULAR HEMOGLOBIN 27.9 PG (27.0-34.0); MEAN CORPUSCULAR HGB CONC 33.4 % (32.0-36.0); MEAN PLATELET VOLUME 6.1 FL (7.0-11.0); MONO % 8.9 % (0.0-8.0); MONOCYTE # 0.7 TH/MM3 (0-0.9); NEUT % 53.4 % (16.0-70.0); PLATELET COUNT 669 TH/MM3 (150-450); RED BLOOD COUNT 4.33 MIL/MM3 (4.00-5.30); RED CELL DISTRIBUTION WIDTH 15.7 % (11.6-17.2); WHITE BLOOD COUNT 7.4 TH/MM3 (4.0-11.0)
[2017-11-04] MEDS: SODIUM CHLORIDE 0.9% FLUSH 10 ML FLUSH IV FLUSH SCH ×2 (12:23→22:23)
[2017-11-04 12:30] VITALS: BP 123/59; PULSE 81; RESP 18; TEMP 97.8; O2SAT 99
[2017-11-04 16:24] VITALS: BP 110/55; PULSE 73; RESP 18; TEMP 98.1; O2SAT 99
[2017-11-04 20:00] VITALS: BP 117/66; PULSE 61; RESP 18; TEMP 98.2; O2SAT 98
[2017-11-04] MEDS: DOCUSATE SODIUM 50 MG/SENNA 8.6 MG TAB PO PRN (20:48)
[2017-11-05] VITALS: BP 123/59; PULSE 66; RESP 18; TEMP 98; O2SAT 98
[2017-11-05 04:00] VITALS: BP 127/59; PULSE 71; RESP 18; TEMP 98.1; O2SAT 97
[2017-11-05] MEDS: AMOXICILLIN/CLAVULANATE K 500 MG TAB PO SCH ×3 (06:30→21:15)
[2017-11-05] MEDS: IBUPROFEN 600 MG TAB PO SCH ×4 (06:31→23:38)
[2017-11-05 08:00] VITALS: BP 108/57; PULSE 60; RESP 18; TEMP 98; O2SAT 98
[2017-11-05 08:19] LABS: AUTOMATED NEUTROPHIL # 5.4 TH/MM3 (1.8-7.7); BASOPHIL % 0.2 % (0.0-2.0); EOSINOPHIL # 0.9 TH/MM3 (0-0.4); EOSINOPHIL % 10.8 % (0.0-4.0); HEMATOCRIT 37.4 % (35.0-46.0); HEMOGLOBIN 12.4 GM/DL (11.6-15.3); LYMPH % 16.6 % (9.0-44.0); LYMPHOCYTE # 1.4 TH/MM3 (1.0-4.8); MEAN CELL VOLUME 83.5 FL (80.0-100.0); MEAN CORPUSCULAR HEMOGLOBIN 27.7 PG (27.0-34.0); MEAN CORPUSCULAR HGB CONC 33.1 % (32.0-36.0); MEAN PLATELET VOLUME 6.2 FL (7.0-11.0); MONO % 7.7 % (0.0-8.0); MONOCYTE # 0.6 TH/MM3 (0-0.9); NEUT % 64.7 % (16.0-70.0); PLATELET COUNT 654 TH/MM3 (150-450); RED BLOOD COUNT 4.49 MIL/MM3 (4.00-5.30); RED CELL DISTRIBUTION WIDTH 16.4 % (11.6-17.2); WHITE BLOOD COUNT 8.4 TH/MM3 (4.0-11.0)
[2017-11-05] MEDS: SODIUM CHLORIDE 0.9% FLUSH 10 ML FLUSH IV FLUSH SCH ×2 (09:00→21:16)
--- NOTE | 2017-11-05 10:12 | HHI.PR ---
Subjective Remarks POD#6 s/p exploratory laparotomy, debridement/washout of pelvic abscess, repair of right ovary, rigid sigmoidoscopy (intraop Gen Surg consult) for postop fever/ pelvic abscess POD#20 s/p LAVH, LSO, R salpingectomy for enlarged fibroid uterus, menorrhagia, endometriosis. - Doing over all well, CBC stable and normal, given complicated post op course and new VB over the past [address] abdomen / pelvis to rule out any new intraabdominal process. Objective Vital Signs Vital Signs Date Time Temp Pulse Resp B/P (MAP) Pulse Ox O2 Delivery O2 Flow Rate FiO2 11/05/17 08:00 98.0 60 18 108/57 (74) 98 11/05/17 04:00 98.1 71 18 127/59 (81) 97 11/05/17 00:00 98.0 66 18 123/59 (80) 98 11/04/17 20:00 98.2 61 18 117/66 (83) 98 11/04/17 16:24 98.1 73 18 110/55 (73) 99 11/04/17 12:30 97.8 81 18 123/59 (80) 99 I/O 18 18 11/04/1718 18 11/05/17 06:59 14:59 22:59 06:59 14:59 22:59 Output Total 10 ml Balance -10 ml Drainage Total 10 ml # Voids 5 Result Diagram: 11/05/17 0738 11/02/17 0811 Objective Remarks Chest is clear, regular rate and rhythm. Lungs CTA anteriorly & laterally & posteriorly, pt able to lean forward without issue Abdomen is soft and non-distended. Good BS all 4 quadrants; Bruising around incision as expected no change from yesterday, prior drain site covered and steris are dry. Pfannenstiel clean dry and intact with landy. : Normal external female genitalia, speculum inserted, 10-20 cc of old blood clot cleared, no lacerations to the vaginal mucosa appreciated, the cuff appears to be intact with suture present, small 1mm separation at the anterior 1 /3rd and at the bottom where the knot is, no active bleeding at any of the sites , digitally intact as well and no tenderness. Ext no CCE. SCDs on. A/P Assessment and Plan Readmit on Monday10/27/17 for fever, concern for sepsis, found to have large pelvic abscess, now: POD#6 s/p ex-lap, washout & debridement of pelvic abscess, repair of R ovary, rigid sigmoidoscopy (Gen Surg consult intraop) POD#20 s/p LAVH, LSO, R salpingectomy for menorrhagia, chronic pelvic pain, endometriosis, fibroids 1) postop day #6/#20 large pelvic abscess debrided/washed out in OR 10/30/18 with cultures from wound and peritoneal fluid both showing + E.coli, sensitive to Zosyn / augmentin. -CBC stable and normal, JAZMIN drain removed yesterday, patient has had some vaginal bleeding since yesterday, exam performed today no active source, could be small ooze from the cuff, will perform CT scan abdomen and pelvis with IV contrast given her complicated postop course and new bleeding, if shows no intra -abdominal process discussed with patient options including observation, evaluation under anesthesia and re-modification of her cuff, or vaginal packing. We will readdress this later after results of CT and notify her primary sales representative advertising Dr. Loyd of my thoughts and findings. -Continue p.o. Augmentin (Day 3/10) as recommended by ID. -Dispo: possible d/c home in next 48hrs. Miguel Taylor MD Nov 05, 2017 10:12
[2017-11-05] MEDS: oxyCODONE/ACETAMINOPHEN 5 MG/325 MG TAB PO PRN ×3 (10:50→21:22)
[2017-11-05 12:00] VITALS: BP 125/68; PULSE 63; RESP 18; TEMP 98.3; O2SAT 98
[2017-11-05] MEDS: metroNIDAZOLE 500 MG TAB PO SCH ×2 (13:06→21:15)
[2017-11-05] MEDS: ONDANSETRON HCL 4 MG/2 ML VIAL IVP PRN (13:07)
[2017-11-05] MEDS ORDERED: IOHEXOL 350 MG/ML 10 ML VIAL (for RAD DIAG) IVCONTRAST ONE (13:51)
--- NOTE | 2017-11-05 14:10 | RADRPT ---
EXAM DATE/TIME: 11/05/2017 13:24 [facility] COMPARISON: CT PELVIS W CONTRAST, October 29, 2017, 21:00. CT ABDOMEN & PELVIS W CONTRAST, October 27, 2017, 8:27. INDICATIONS : Post operative pelvic abscess washout. IV CONTRAST: 94 cc Omnipaque 350 (iohexol) IV ORAL CONTRAST: No oral contrast ingested. RADIATION DOSE: 6.64 CTDIvol (mGy) MEDICAL HISTORY : None SURGICAL HISTORY : Hysterectomy. ENCOUNTER: Initial ACUITY: 4 - 6 days PAIN SCALE: 7/10 LOCATION: Bilateral pelvis TECHNIQUE: Volumetric scanning of the abdomen and pelvis was performed. Using automated exposure control and ad justment of the mA and/or kV according to patient size, radiation dose was kept as low as reasonably achievable to obtain optimal diagnostic quality images. DICOM format image data is available electro nically for review and comparison. FINDINGS: LOWER LUNGS: The visualized lower lungs are clear. LIVER: Homogeneous density without lesion. There is no dilation of the biliary tree. No calcified gallston es. SPLEEN: Normal size without lesion. PANCREAS: Within normal limits. KIDNEYS: Normal in size and shape. There is no mass, stone or hydronephrosis. ADRENAL GLANDS: Within normal limits. VASCULAR: There is no aortic aneurysm. BOWEL/MESENTERY: The stomach, small bowel, and colon demonstrate no acute abnormality. There is no free intraperitone al air or fluid. ABDOMINAL WALL: Within normal limits. RETROPERITONEUM: There is no lymphadenopathy. BLADDER: No wall thickening or mass. REPRODUCTIVE: Overall, the fluid collection in the pelvis seen previously are smaller. Anatomic detail is somewhat limited due to the lack of oral contrast. There is some free air in the deep pelvis with superficial skin landy and subcutaneous air effect restricted to be recent surgical intervention.. INGUINAL: There is no lymphadenopathy or hernia. MUSCULOSKELETAL: Within normal limits for patient age. CONCLUSION: 1. Fluid collections in the deep pelvis are smaller when compared to prior exam. Findings of recent s urgical intervention with subcutaneous and intrapelvic air. 2. Otherwise negative. Seth Grimaldo MD on November 05, 2017 at 14:05 Board Certified Radiologist. This report was verified electronically.
[2017-11-05 16:00] VITALS: BP 135/63; PULSE 72; RESP 18; TEMP 98.3; O2SAT 99
--- NOTE | 2017-11-05 17:51 | HHI.PR ---
TIRE SERVICE TECHNICIAN Note Note Patient care update: spoke to patient and her family / friends about her CT results, I had reviewed the images with in house radiologist in comparison to her scan 8-9 days ago, the fluid collection appreciated today is farily small in comparison and could just be peritoneal fluid with some peritoneal enhancement. Pt has had no further bleeding from this morning, still feels well. Plan was made to continue observation through tomorrow am, encouraged her to ambulate to see if any bleeding begins. Source of bleeding still unknown, would be related to vaginal cuff and has resolved, if restarts tomorrow plan will likely be for packing and possibly repeat CT scan in 48 hours. They verbalized understanding of the plan, i relayed this information to her primary loan analyst via a phone call. Miguel Taylor MD Nov 05, 2017 17:51
[2017-11-05 20:00] VITALS: BP 109/57; PULSE 67; RESP 18; TEMP 98; O2SAT 97
[2017-11-05] MEDS: DOCUSATE SODIUM 50 MG/SENNA 8.6 MG TAB PO PRN (23:38)
[2017-11-06] VITALS: BP 115/59; PULSE 64; RESP 18; TEMP 97.8; O2SAT 98
[2017-11-06 04:00] VITALS: BP 124/57; PULSE 62; RESP 18; TEMP 97.3; O2SAT 97
[2017-11-06] MEDS: AMOXICILLIN/CLAVULANATE K 500 MG TAB PO SCH ×3 (05:42→21:05)
[2017-11-06] MEDS: metroNIDAZOLE 500 MG TAB PO SCH ×3 (05:42→21:04)
[2017-11-06] MEDS: IBUPROFEN 600 MG TAB PO SCH ×4 (05:42→23:43)
[2017-11-06 07:24] LABS: AUTOMATED NEUTROPHIL # 4.5 TH/MM3 (1.8-7.7); BASOPHIL # 0.2 TH/MM3 (0-0.2); BASOPHIL % 2.7 % (0.0-2.0); EOSINOPHIL # 0.7 TH/MM3 (0-0.4); HEMATOCRIT 38.9 % (35.0-46.0); HEMOGLOBIN 13.1 GM/DL (11.6-15.3); LYMPHOCYTE # 1.4 TH/MM3 (1.0-4.8); MEAN CELL VOLUME 83.7 FL (80.0-100.0); MEAN CORPUSCULAR HEMOGLOBIN 28.3 PG (27.0-34.0); MEAN CORPUSCULAR HGB CONC 33.8 % (32.0-36.0); MONO % 8.8 % (0.0-8.0); MONOCYTE # 0.7 TH/MM3 (0-0.9); NEUT % 60.5 % (16.0-70.0); PLATELET COUNT 628 TH/MM3 (150-450); RED BLOOD COUNT 4.65 MIL/MM3 (4.00-5.30); RED CELL DISTRIBUTION WIDTH 16.2 % (11.6-17.2); WHITE BLOOD COUNT 7.5 TH/MM3 (4.0-11.0)
[2017-11-06 08:00] VITALS: BP 119/67; PULSE 86; RESP 18; TEMP 97.3; O2SAT 97
[2017-11-06] MEDS ORDERED: DIATRIZOATE MEGLUM/DIATRIZOATE SOD 9 ML CUP PO ONE (09:44)
--- NOTE | 2017-11-06 10:06 | HHI.PR ---
Subjective Remarks POD#7 s/p exploratory laparotomy, debridement/washout of pelvic abscess, repair of right ovary, rigid sigmoidoscopy (intraop Gen Surg consult) for postop fever/ pelvic abscess POD#21 s/p LAVH, LSO, R salpingectomy for enlarged fibroid uterus, menorrhagia, endometriosis. Feeling better over past 24h, vaginal bleeding has lessened substantially, scant spotting. No blood on pad currently. [place] were removed from abdominal incision yesterday evening and pt has had area of serosanginous drainage from R side, approx 2cm from R edge; ABD pad from last night approx 1/ 4 saturated on R corner. ABD removed, new ABD pad placed. D/w pt if still having drainage this afternoon will plan sterile exploration at bedside, possible iodoform packing if any open areas; incision intact with steri strips in place at this time; tolerating diet, voiding and having BMs. Objective Vital Signs Last 72 hours Impressions Abdomen/Pelvis CT 11/05/17 1129 Signed Impressions: Service Date/Time: Sunday, November 05, 2017 13:24 - CONCLUSION: 1. Fluid collections in the deep pelvis are smaller when compared to prior exam. Findings of recent surgical intervention with subcutaneous and intrapelvic air. 2. Otherwise negative. Seth Grimaldo MD Vital Signs Date Time Temp Pulse Resp B/P (MAP) Pulse Ox O2 Delivery O2 Flow Rate FiO2 11/06/17 08:00 97.3 86 18 119/67 (84) 97 11/06/17 04:00 97.3 62 18 124/57 (79) 97 11/06/17 00:00 97.8 64 18 115/59 (77) 98 11/05/17 20:00 98.0 67 18 109/57 (74) 97 11/05/17 16:00 98.3 72 18 135/63 (87) 99 11/05/17 12:00 98.3 63 18 125/68 (87) 98 I/O 11/05/17 11/05/17 11/05/17 11/06/17 11/06/17 11/06/17 07:00 15:00 23:00 07:00 15:00 23:00 Intake Total 400 ml Balance 400 ml Packed Cells 400 ml # Voids 5 5 # Bowel Movements 1 Result Diagram: 11/06/17 0637 11/02/17 0811 Objective Remarks Chest is clear, regular rate and rhythm. Lungs CTA anteriorly & laterally & posteriorly, pt able to lean forward without issue Abdomen is soft and non-distended. Good BS all 4 quadrants; Bruising lessened around incision, prior drain site covered and steris are dry at drain site. Pfannenstiel with steri strips in place but drainage from R side of incision, approx 2cm from incision edge; bandage changed, no active drainage, serosanguinous, no bleeding; appears intact : no blood on pad Ext no CCE. A/P Assessment and Plan Readmit on Monday10/27/17 for fever, concern for sepsis, found to have large pelvic abscess, now: POD#7 s/p ex-lap, washout & debridement of pelvic abscess, repair of R ovary, rigid sigmoidoscopy (Gen Surg consult intraop) POD#21 s/p LAVH, LSO, R salpingectomy for menorrhagia, chronic pelvic pain, endometriosis, fibroids 1) postop day #7/#21 - large pelvic abscess debrided/washed out in OR 10/30/17 with cultures from wound and peritoneal fluid both showing + E.coli, sensitive to Zosyn / augmentin ; was on IV Vanc/Zosyn preop, continued Zosyn postop x 4d, transitioned to oral Augmentin TID on Monday11/03/17 per ID recommendations; afebrile since day of admission -CBC stable and normal, JAZMIN drain removed 11/04/17, patient has had some vaginal bleeding 11/04 - 11/05, exam performed by Dr. Taylro 11/05 showed no active source, could be small ooze from the cuff, CT scan abdomen and pelvis with IV contrast showed decrease in pelvic fluid, suspected postop changes, no new abscess noted ; recommendation by Radiologist to repeat with oral contrast for better imaging ; new order placed today; as of today 11/06/17 vaginal bleeding is scant to none - landy d/c'd from abdominal sound 11/05/17, pt notes drainage increasing since that time, R-side of incision with slight serosanguinous drainage today; new ABD placed, will re-evaluate later today, if continues to have drainage will explore wound at bedside and possible pack with iodoform gauze; pt aware -Continue p.o. Augmentin (Day 10/24) as recommended by ID, added Flagyl TID due to vaginal bleeding, concern for mild cuff cellulitis, now day 2 of Flagyl. -Dispo: possible d/c home in next 48hrs. Suni Loyd MD Nov 06, 2017 10:05
[2017-11-06] MEDS: SODIUM CHLORIDE 0.9% FLUSH 10 ML FLUSH IV FLUSH SCH ×2 (10:30→21:04)
[2017-11-06 12:00] VITALS: BP 116/70; PULSE 73; RESP 18; TEMP 97.9; O2SAT 97
--- NOTE | 2017-11-06 13:42 | HHI.IDPN ---
Subjective Subjective Remarks sp Exploratory laparotomy., Washout of and debridement of pelvic abscess, Debridement and repair of right ovary and intraoperative rigid sigmoidoscopy. doing well no pain CT results were noted: + still fluid collections afebrile Antibiotics augmentin Allergies: Coded Allergies: methylergonovine (Unverified Allergy, Severe, Anaphylaxis, 10/26/17) succinylcholine (Unverified Allergy, Severe, 10/26/17) sulfamethoxazole (Unverified Allergy, Severe, 10/26/17) trimethoprim (Unverified Allergy, Severe, 10/26/17) Sulfa (Sulfonamide Antibiotics) (Unverified Allergy, Unknown, 10/26/17) Uncoded Allergies: METHERGAN (Allergy, Severe, 10/18/10) Objective . Vital Signs Date Time Temp Pulse Resp B/P (MAP) Pulse Ox O2 Delivery O2 Flow Rate FiO2 11/06/17 12:00 97.9 73 18 116/70 (85) 97 11/06/17 08:00 97.3 86 18 119/67 (84) 97 11/06/17 04:00 97.3 62 18 124/57 (79) 97 11/06/17 00:00 97.8 64 18 115/59 (77) 98 11/05/17 20:00 98.0 67 18 109/57 (74) 97 11/05/17 16:00 98.3 72 18 135/63 (87) 99 11/06/17 11/06/17 11/07/17 15:00 23:00 07:00 Intake Total 400 ml Balance 400 ml Packed Cells 400 ml . Laboratory Tests Test 11/05/17 07:38 11/06/17 06:37 White Blood Count 8.4 TH/MM3 7.5 TH/MM3 Red Blood Count 4.49 MIL/MM3 4.65 MIL/MM3 Hemoglobin 12.4 GM/DL 13.1 GM/DL Hematocrit 37.4 % 38.9 % Mean Corpuscular Volume 83.5 FL 83.7 FL Mean Corpuscular Hemoglobin 27.7 PG 28.3 PG Mean Corpuscular Hemoglobin Concent 33.1 % 33.8 % Red Cell Distribution Width 16.4 % 16.2 % Platelet Count 654 TH/MM3 628 TH/MM3 Mean Platelet Volume 6.2 FL 6.0 FL Neutrophils (%) (Auto) 64.7 % 60.5 % Lymphocytes (%) (Auto) 16.6 % 18.0 % Monocytes (%) (Auto) 7.7 % 8.8 % Eosinophils (%) (Auto) 10.8 % 10.0 % Basophils (%) (Auto) 0.2 % 2.7 % Neutrophils # (Auto) 5.4 TH/MM3 4.5 TH/MM3 Lymphocytes # (Auto) 1.4 TH/MM3 1.4 TH/MM3 Monocytes # (Auto) 0.6 TH/MM3 0.7 TH/MM3 Eosinophils # (Auto) 0.9 TH/MM3 0.7 TH/MM3 Basophils # (Auto) 0.0 TH/MM3 0.2 TH/MM3 CBC Comment DIFF FINAL DIFF FINAL Differential Comment Imaging Last Impressions Abdomen/Pelvis CT 11/05/17 1129 Signed Impressions: Service Date/Time: Sunday, November 05, 2017 13:24 - CONCLUSION: 1. Fluid collections in the deep pelvis are smaller when compared to prior exam. Findings of recent surgical intervention with subcutaneous and intrapelvic air. 2. Otherwise negative. Seth Grimaldo MD Pelvis CT 10/29/17 1800 Signed Impressions: Service Date/Time: Sunday, October 29, 2017 21:00 - CONCLUSION: Complex Fluid collection in the pelvis with surrounding enhancement. This could represent postoperative hematoma/seroma. Infection certainly needs to be considered. In addition, there appears to be a complex cystic area in the more superior posterior right lateral aspect of this region potentially related to a right ovarian cystic process. Florencio Pedroza MD Physical Exam CONSTITUTIONAL/GENERAL: This is a thin young patient, in no apparent distress. TUBES/LINES/DRAINS: SKIN: No jaundice, rashes, or lesions. Skin temperature appropriate. Not diaphoretic. EYES: Pupils equal and round and reactive. Extraocular motions intact. No scleral icterus. No injection or drainage. Fundi not examined. CARDIOVASCULAR: Regular rate and rhythm without murmurs, gallops, or rubs. No JVD. Peripheral pulses symmetric. RESPIRATORY/CHEST: Symmetric, unlabored respirations. Clear to auscultation. Breath sounds equal bilaterally. No wheezes, rales, or rhonchi. GASTROINTESTINAL: Abdomen soft, non-tender, nondistended. No hepato-splenomegaly , or palpable masses. No guarding. Bowel sounds present. incision is dry, stirry strips in, GENITOURINARY: Without palpable bladder distension. MUSCULOSKELETAL: Extremities without clubbing, cyanosis, or edema. N NEUROLOGICAL: Awake and alert. Non focal PSYCHIATRIC: No obvious anxiety/depression. no apparent hallucinations or other psychotic thought process. Assessment & Plan Remarks Pelvic abscess following lap hysrterectomy - sp exp lap with decbridement of abscess - necrotic ovarian cyst , severe inflammatory changes encounted Endometriosis Partially treated UTI, E.coli - cont augmentin - will fu CT that is planned for today Gricelda Miller MD Nov 06, 2017 13:42
[2017-11-06] MEDS ORDERED: IOHEXOL 350 MG/ML 10 ML VIAL (for RAD DIAG) IVCONTRAST ONE (15:23)
--- NOTE | 2017-11-06 15:50 | RADRPT ---
EXAM DATE/TIME: 11/06/2017 15:14 [facility] COMPARISON: CT ABDOMEN & PELVIS W CONTRAST, November 05, 2017, 13:24. INDICATIONS : Patient with pain in multiple pelvic fluid collections. The patient is status post surgery, sepsis IV CONTRAST: 95 cc Omnipaque 350 (iohexol) IV ORAL CONTRAST: Prescribed oral contrast ingested. RADIATION DOSE: 4.83 CTDIvol (mGy) MEDICAL HISTORY : None SURGICAL HISTORY : Hysterectomy. D&C ENCOUNTER: Initial ACUITY: 1 day PAIN SCALE: 5/10 LOCATION: Bilateral Abdomen TECHNIQUE: Volumetric scanning of the abdomen and pelvis was performed. Using automated exposure control and ad justment of the mA and/or kV according to patient size, radiation dose was kept as low as reasonably achievable to obtain optimal diagnostic quality images. DICOM format image data is available electro nically for review and comparison. FINDINGS: LOWER LUNGS: The visualized lower lungs are clear. LIVER: Homogeneous density without lesion. There is no dilation of the biliary tree. No calcified gallston es. SPLEEN: Normal size without lesion. PANCREAS: Within normal limits. KIDNEYS: Normal in size and shape. There is no mass, stone or hydronephrosis. ADRENAL GLANDS: Within normal limits. VASCULAR: There is no aortic aneurysm. BOWEL/MESENTERY: Ill-defined fluid collections are again identified in the lower pelvis. These do not appear significa ntly changed. The largest collection is in right pelvis measuring up to approximately 3.4 x 2.5 cm in diameter with enhancing rims. Small collections the left of midline. A small amount of free air milind ins along the anterior pelvis and abdominal wall musculature. There are postoperative changes involvi ng the adjacent anterior lower abdominal wall. ABDOMINAL WALL: Postsurgical changes are again noted with thickening and fluid. There are multiple small gas bubbles identified. Fluid has decreased in size with only minimal residual. Surgical skin landy have been r emoved. RETROPERITONEUM: There is no lymphadenopathy. BLADDER: No wall thickening or mass. REPRODUCTIVE: Within normal limits. INGUINAL: There is no lymphadenopathy or hernia. MUSCULOSKELETAL: Within normal limits for patient age. CONCLUSION: 1. No significant change in the pelvic fluid collections with enhancing rims. There are no new fluid collections. 2. Small amount of residual free air with postsurgical changes noted involving the anterior lower abd ominal wall musculature. The fluid has decreased Kailash Villeda MD on November 06, 2017 at 15:43 Board Certified Radiologist. This report was verified electronically.
[2017-11-06 16:00] VITALS: BP 118/75; PULSE 80; RESP 18; TEMP 97.9; O2SAT 97
[2017-11-06 20:00] VITALS: BP 113/61; PULSE 77; RESP 20; TEMP 98.3; O2SAT 97
[2017-11-06] MEDS: DOCUSATE SODIUM 50 MG/SENNA 8.6 MG TAB PO PRN (21:05)
[2017-11-07] VITALS: BP 104/56; PULSE 85; RESP 20; TEMP 98.2; O2SAT 99
[2017-11-07 04:00] VITALS: BP 129/65; PULSE 88; RESP 19; TEMP 97.3; O2SAT 98
[2017-11-07 05:48] LABS: AUTOMATED NEUTROPHIL # 6.3 TH/MM3 (1.8-7.7); BASOPHIL # 0.1 TH/MM3 (0-0.2); BASOPHIL % 1.2 % (0.0-2.0); EOSINOPHIL # 0.7 TH/MM3 (0-0.4); EOSINOPHIL % 7.1 % (0.0-4.0); HEMATOCRIT 38.2 % (35.0-46.0); HEMOGLOBIN 12.7 GM/DL (11.6-15.3); LYMPH % 16.7 % (9.0-44.0); LYMPHOCYTE # 1.6 TH/MM3 (1.0-4.8); MEAN CELL VOLUME 83.9 FL (80.0-100.0); MEAN CORPUSCULAR HGB CONC 33.3 % (32.0-36.0); MEAN PLATELET VOLUME 5.9 FL (7.0-11.0); MONO % 7.9 % (0.0-8.0); MONOCYTE # 0.7 TH/MM3 (0-0.9); NEUT % 67.1 % (16.0-70.0); PLATELET COUNT 578 TH/MM3 (150-450); RED BLOOD COUNT 4.55 MIL/MM3 (4.00-5.30); RED CELL DISTRIBUTION WIDTH 16.5 % (11.6-17.2); WHITE BLOOD COUNT 9.4 TH/MM3 (4.0-11.0)
[2017-11-07] MEDS: metroNIDAZOLE 500 MG TAB PO SCH (05:49)
[2017-11-07] MEDS: IBUPROFEN 600 MG TAB PO SCH (05:49)
[2017-11-07] MEDS: AMOXICILLIN/CLAVULANATE K 500 MG TAB PO SCH (05:49)
--- NOTE | 2017-11-07 07:32 | HHI.PR ---
Subjective Remarks POD#8 s/p exploratory laparotomy, debridement/washout of pelvic abscess, repair of right ovary, rigid sigmoidoscopy (intraop Gen Surg consult) for postop fever/ pelvic abscess POD#22 s/p LAVH, LSO, R salpingectomy for enlarged fibroid uterus, menorrhagia, endometriosis. Feeling well overall; afebrile, regular BMs and voids, scant drainage from R side of incision over past 24h and light spotting vaginally only when gets up to have BM, otherwise pad is dry. Strongly desires discharge to home. Willing to f/u in office every other day if necessary for close evaluation. Objective Vital Signs Vital Signs Date Time Temp Pulse Resp B/P (MAP) Pulse Ox O2 Delivery O2 Flow Rate FiO2 11/07/17 04:00 97.3 88 19 129/65 (86) 98 11/07/17 00:00 98.2 85 20 104/56 (72) 99 11/06/17 20:00 98.3 77 20 113/61 (78) 97 11/06/17 16:00 97.9 80 18 118/75 (89) 97 11/06/17 12:00 97.9 73 18 116/70 (85) 97 11/06/17 08:00 97.3 86 18 119/67 (84) 97 I/O 11/06/18 11/06/17 11/06/17 11/07/1718 11/07/17 07:00 15:00 23:00 07:00 15:00 23:00 Intake Total 400 ml Balance 400 ml Packed Cells 400 ml # Voids 5 0 # Bowel Movements 0 Result Diagram: 11/07/17 0524 Objective Remarks Chest is clear, regular rate and rhythm. Lungs CTA anteriorly & laterally & posteriorly, pt able to lean forward without issue Abdomen is soft and non-distended. Good BS all 4 quadrants; Bruising lessened around incision, prior drain site covered and steris are dry at drain site. Pfannenstiel with steri strips in place, no active drainage; C/D/I : no blood on pad Ext no CCE. A/P Assessment and Plan Readmit on Monday10/27/17 for fever, concern for sepsis, found to have large pelvic abscess, now: POD#8 s/p ex-lap, washout & debridement of pelvic abscess, repair of R ovary, rigid sigmoidoscopy (Gen Surg consult intraop) POD#22 s/p LAVH, LSO, R salpingectomy for menorrhagia, chronic pelvic pain, endometriosis, fibroids 1) postop day #8/#22 - large pelvic abscess debrided/washed out in OR 18 with cultures from wound and peritoneal fluid both showing + E.coli, sensitive to Zosyn / augmentin ; was on IV Vanc/Zosyn preop, continued Zosyn postop x 4d, transitioned to oral Augmentin TID on Monday11/03/17 per ID recommendations; afebrile since day of admission -CBC stable and normal, JAZMIN drain removed 11/04/17, patient has had some vaginal bleeding 11/04 - 11/05, sterile vaginal exam performed by Dr. Taylor 11/05 showed no active source, possible small ooze from the cuff that appeared resolved at time of bedside exam, CT scan abdomen and pelvis with IV contrast showed decrease in pelvic fluid, suspected postop changes, no new abscess noted - landy d/c'd from abdominal sound 11/05/17, pt noted drainage increasing initially after removal but for past 24h scant to none; C/D/I at time of d/c -Continue p.o. Augmentin (Day 5/10) as recommended by ID, added Flagyl TID due to vaginal bleeding (Day 3/7), concern for mild cuff cellulitis, now day 3 of Flagyl. -Dispo: will d/c to home today with office f/u in 2 days and plan for twice weekly office eval every Mon/Thurs in initial postop time frame due to complicated course Suni Loyd MD Nov 07, 2017 07:32
[2017-11-07 07:48] VITALS: BP 120/69; PULSE 76; RESP 18; TEMP 98; O2SAT 98
--- NOTE | 2017-11-07 07:48 | HHI.DS ---
Discharge Summary Admission Date Oct 26, 2017 at 22:57 Discharge Date: Nov 07, 2017 Admitting Diagnosis Sepsis UTI (1) Acute abscess of female pelvis Diagnosis: Principal ICD Codes: N73.0 - Acute parametritis and pelvic cellulitis Status: Acute (2) SIRS (systemic inflammatory response syndrome) Diagnosis: Principal ICD Codes: R65.10 - Systemic inflammatory response syndrome (SIRS) of non- infectious origin without acute organ dysfunction Status: Acute (3) UTI (urinary tract infection) Diagnosis: Principal ICD Codes: N39.0 - Urinary tract infection, site not specified Status: Acute Procedures exploratory laparotomy, washout & debridement of pelvic abscess, repair of R ovary, rigid sigmoidoscopy (Gen Surg consult intraop), IV antibiotic management Brief History Seen in ER 10/26/17 for fever, readmitted on Monday10/27/17 for concern for sepsis, at that time was POD#10 s/p LAVH, LSO, R salpingectomy for menorrhagia, chronic pelvic pain, endometriosis, fibroids; had been diagnosed with UTI postoperatively and was compliant with Macrobid but developed fever despite therapy. On admission imaging pt found to have large pelvic abscess, started on IV antibiotics (Vancomycin & Zosyn), abscess continued to enlarge on serial imaging, decision for exploratory abdominal surgery with washout performed on hospital day #5 (10/30/17). CBC/BMP: 11/07/17 0524 Significant Findings Laboratory Tests Test 11/04/17 08:14 11/05/17 07:38 11/06/17 06:37 11/07/17 05:24 Platelet Count 669 TH/MM3 (150-450) 654 TH/MM3 (150-450) 628 TH/MM3 (150-450) 578 TH/MM3 (150-450) Mean Platelet Volume 6.1 FL (7.0-11.0) 6.2 FL (7.0-11.0) 6.0 FL (7.0-11.0) 5.9 FL (7.0-11.0) Monocytes (%) (Auto) 8.9 % (0.0-8.0) 8.8 % (0.0-8.0) Eosinophils (%) (Auto) 14.3 % (0.0-4.0) 10.8 % (0.0-4.0) 10.0 % (0.0-4.0) 7.1 % (0.0-4.0) Eosinophils # (Auto) 1.1 TH/MM3 (0-0.4) 0.9 TH/MM3 (0-0.4) 0.7 TH/MM3 (0-0.4) 0.7 TH/MM3 (0-0.4) Basophils (%) (Auto) 2.7 % (0.0-2.0) Imaging Last 72 hours Impressions Abdomen/Pelvis CT 11/06/17 0000 Signed Impressions: Service Date/Time: Monday, November 06, 2017 15:14 - CONCLUSION: 1. No significant change in the pelvic fluid collections with enhancing rims. There are no new fluid collections. 2. Small amount of residual free air with postsurgical changes noted involving the anterior lower abdominal wall musculature. The fluid has decreased Kailash Villeda MD Abdomen/Pelvis CT 11/05/17 1129 Signed Impressions: Service Date/Time: Sunday, November 05, 2017 13:24 - CONCLUSION: 1. Fluid collections in the deep pelvis are smaller when compared to prior exam. Findings of recent surgical intervention with subcutaneous and intrapelvic air. 2. Otherwise negative. Seth Grimaldo MD PE at Discharge Chest is clear, regular rate and rhythm. Lungs CTA anteriorly & laterally & posteriorly, pt able to lean forward without issue Abdomen is soft and non-distended. Good BS all 4 quadrants; Bruising lessened around incision, prior drain site covered and steris are dry at drain site. Pfannenstiel with steri strips in place, no active drainage; C/D/I : no blood on pad Ext no CCE. Hospital Course On Monday10/30/17 decision for exploratory laparotomy, washout & debridement of pelvic abscess, repair of R ovary, rigid sigmoidoscopy (Gen Surg consult intraop ) for large pelvic abscess. At time of surgery diffuse inflammatory tissue and serosanginous fluid in pelvis, no clear source of abscess cavity other than infected appearing capsule of right ovarian cyst. Postoperatively, cultures on wound and peritoneal fluid both grew + E.coli, sensitive to Zosyn / Augmentin; pt was on IV Vanc/Zosyn preop and continued until cultures resulted postop, continued Zosyn postop x 4d, transitioned to oral Augmentin TID on Monday per ID recommendations; afebrile since 10/27/17. As a precaution pt was started on preventative Lovenox 24h postoperatively. Although pt improved clinically originally after surgery and JAZMIN drain was able to be removed 11/04/17, patient had some vaginal bleeding 11/04 - 11/05. Sterile vaginal exam performed by Dr. Taylor 11/05 showed no active source, possible small ooze from the cuff that appeared resolved at time of bedside exam, CT scan abdomen and pelvis with IV contrast on 11/05 & with oral contrast on showed decrease in pelvic fluid, suspected postop changes, no new abscess noted Ayaz d/c'd from abdominal wound 11/05/17, pt noted drainage increasing initially after staple removal after initial after walking around, showering, and changing to new ABD pad scant to no drainage was noted for more than 24h of monitoring. Incision C/D/I with steri-strips in place at time of d/c Per ID recommendations, will continue p.o. Augmentin for 10d of therapy; added Flagyl TID 11/05/17 due to vaginal bleeding & concern for mild cuff cellulitis. Discharged to home on Hospital Day #13, POD#8 from ex-lap, washout/debridement of pelvic abscess, POD#22 from original surgery, LAVH, LSO, R salpingectomy. Office visit scheduled 11/09/17 and will plan twice weekly visits for next few weeks due to complicated and unexpected postoperative course. Pt Condition on Discharge: Good Discharge Disposition: Discharge Home Discharge Instructions DIET: Follow Instructions for: As Tolerated, No Restrictions Activities you can perform: Non Weight Bearing, Shower Only-No Bath, Pelvic Rest Activities to avoid: Lifting/Bending, Weight Bearing, Prolonged Standing, Strenuous Activity, Driving (x 2 weeks), Sexual Activity Suni Loyd MD Nov 07, 2017 07:48
[2017-11-07] MEDS ORDERED: OXYC1TAB63 PO (07:50)
[2017-11-07] MEDS ORDERED: SENN1TAB PO (07:50)
[2017-11-07] MEDS ORDERED: ZOFR4TAB PO (07:50)
[2017-11-07] MEDS ORDERED: Amoxicil-Clavulanate PO (07:50)
[2017-11-07] MEDS ORDERED: METR-1 PO (07:50)
[2017-11-07] MEDS: SODIUM CHLORIDE 0.9% FLUSH 10 ML FLUSH IV FLUSH SCH (09:00)
== END 2017-11-07 10:31 | disposition home or self-care (01) | DRG 856 ==
LOC: NEPE 19:51 → NEDA 22:57 → N05A 10-27 12:42
PROVIDERS: ADMIT Obstetrics & Gynecology; ATTEND Obstetrics & Gynecology
PROC: 0UJH7ZZ Inspection of Vagina and Cul-de-sac, Via Natural or Artificial Opening (ICD-10-PCS; 2017-10-30)
PROC: 0DJD8ZZ Inspection of Lower Intestinal Tract, Via Natural or Artificial Opening Endoscopic (ICD-10-PCS; 2017-10-30)
PROC: 0UB00ZZ Excision of Right Ovary, Open Approach (ICD-10-PCS; principal; 2017-10-30 08:58)
PROC: 30233N1 Transfusion of Nonautologous Red Blood Cells into Peripheral Vein, Percutaneous Approach (ICD-10-PCS; 2017-10-30 08:58)
DX: K68.11 Postprocedural retroperitoneal abscess (principal); A41.9 Sepsis, unspecified organism; N73.0 Acute parametritis and pelvic cellulitis; N30.00 Acute cystitis without hematuria; B96.20 Unspecified Escherichia coli [E. coli] as the cause of diseases classified elsewhere; R50.82 Postprocedural fever; D64.9 Anemia, unspecified; K52.89 Other specified noninfective gastroenteritis and colitis; N83.201 Unspecified ovarian cyst, right side
CPT/HCPCS: 36415; 36430; 72193; 74177; 80048; 80053; 80074; 80202; 81001; 82565; 83036; 83605; 83690; 84703; 85025; 85027; 85610; 85730; 86592; 86703; 86850; 86900; 86901; 86920; 87015; 87070; 87077; 87086; 87102; 87116; 87186; 87205; 87206; 88305; 94150; 96374; 96375; J0131; J0696; J1170; J1650; J1756; J1885; J2175; J2250; J2270; J2405; J2543; J3010; J3370; J7030; J7050; J7120; P9016; Q9963; Q9967